=== PATIENT | female | born 1940 | race Caucasian/White ===

== ENCOUNTER 2020-06-07 16:44 | Inpatient (IN) | payer OTHER, BC ==
[2020-06-07 19:30] LABS: BASO % 0.3 % (0-2.0); HEMOGLOBIN 13.7 GM/dL (10.7-15.3); LYMPH % 15.4 % (8-40); MCH 27.9 pg (25.7-33.7); MCHC 32.6 g/dl (32.0-36.0); MEAN CELL VOLUME 85.5 fl (80-96); MEAN PLT VOLUME 8.7 fl (7.5-11.1); MONO % 11.6 % (3.8-10.2); NEUT % 72.7 % (42.8-82.8); PLATELET COUNT 291 K/MM3 (134-434); RBC 4.91 M/mm3 (3.60-5.2); RDW 14.4 % (11.6-15.6); WHITE BLOOD COUNT 13.6 K/mm3 (4.0-10.0)
[2020-06-07 19:38] LABS: INR 1.18 (0.83-1.09); PROTHROMBIN TIME (PATIENT) 14.4 SEC (9.7-13.0)
[2020-06-07 19:40] LABS: ACTIVATED PTT 30.5 SECONDS (25.2-36.5)
[2020-06-07 19:50] LABS: CHLORIDE 96 mmol/L (98-107); POTASSIUM 4.4 mmol/L (3.5-5.1); SODIUM 134 mmol/L (136-145)
[2020-06-07 19:53] LABS: CALCIUM 8.9 mg/dL (8.5-10.1)
[2020-06-07 19:54] LABS: ANION GAP 8 MMOL/L (8-16); CO2 31 mmol/L (21-32); GLUCOSE,RANDOM 117 mg/dL (74-106)
[2020-06-07 19:56] LABS: BILIRUBIN,DIRECT 0.5 mg/dL (0.0-0.2); CREATININE 1.6 mg/dL (0.55-1.3); SGOT/AST 30 U/L (15-37); SGPT/ALT 20 U/L (13-61)
[2020-06-07 19:58] LABS: BILIRUBIN,TOTAL 1.3 mg/dL (0.2-1); TOT PROT 7.3 g/dl (6.4-8.2)
[2020-06-07 19:59] LABS: ALK PHOS 123 U/L (45-117)
[2020-06-07 21:36] LABS: LDH 396 U/L (84-246)
[2020-06-07] MEDS ORDERED: DEXAMETHASONE SOD PHOSPHATE 4 MG/1 ML VIAL IVPUSH ONE (21:41)
[2020-06-07] MEDS ORDERED: DEXAMETHASONE SOD PHOSPHATE 10 MG/1 ML VIAL ONE (22:53)
[2020-06-08] MEDS ORDERED: ALBUTEROL SO4 HFA INHALER IH PRN (00:21)
[2020-06-08] MEDS ORDERED: AZITHROMYCIN IVPB 500 MG/250 ML BAG IVPB ONE ×2 (00:21→01:31)
[2020-06-08 08:39] LABS: BASO % 0.3 % (0-2.0); HEMATOCRIT 37.9 % (32.4-45.2); HEMOGLOBIN 12.4 GM/dL (10.7-15.3); LYMPH % 12.2 % (8-40); MCH 28.2 pg (25.7-33.7); MCHC 32.7 g/dl (32.0-36.0); MEAN CELL VOLUME 86.3 fl (80-96); MEAN PLT VOLUME 8.8 fl (7.5-11.1); MONO % 3.9 % (3.8-10.2); NEUT % 83.6 % (42.8-82.8); PLATELET COUNT 272 K/MM3 (134-434); RBC 4.39 M/mm3 (3.60-5.2); RDW 14.4 % (11.6-15.6); WHITE BLOOD COUNT 9.5 K/mm3 (4.0-10.0)
[2020-06-08 09:09] LABS: POTASSIUM 4.6 mmol/L (3.5-5.1)
[2020-06-08 09:14] LABS: ALBUMIN 2.6 g/dl (3.4-5.0); BLOOD UREA NITROGEN 30.8 mg/dL (7-18)
[2020-06-08 09:17] LABS: CREATININE 1.5 mg/dL (0.55-1.3)
[2020-06-08 09:18] LABS: BILIRUBIN,TOTAL 0.9 mg/dL (0.2-1); TOT PROT 6.6 g/dl (6.4-8.2)
[2020-06-08] MEDS: CHOLECALCIFEROL (VIT D3) 1,000 UNIT (25 MCG) TABLET PO SCH (09:47)
[2020-06-08] MEDS: ZINC SULFATE 220 MG CAPSULE (FP) PO SCH ×2 (09:47→21:39)
[2020-06-08] MEDS: DEXAMETHASONE SOD PHOSPHATE 4 MG/1 ML VIAL IVPUSH SCH (09:47)
[2020-06-08] MEDS: ASCORBIC ACID 500 MG TABLET (FP) PO SCH ×2 (09:47→21:39)
[2020-06-08] MEDS: ENOXAPARIN NA (PORCINE) 40 MG/0.4 ML DISP.SYRIN SQ SCH (10:17)
[2020-06-08 19:10] LABS: URINE APPEARANCE Clear; URINE BILIRUBIN 1+ (NEGATIVE); URINE COLOR Yellow; URINE GLUCOSE (UA) Negative (NEGATIVE); URINE KETONE Negative (NEGATIVE); URINE LEUK ESTERASE Trace (NEGATIVE); URINE NITRITE Negative (NEGATIVE); URINE PROTEIN Negative (NEGATIVE)
[2020-06-08] MEDS: BUDESONIDE/FORMETEROL FUMARATE 160/4.5 mcg INHALER IH SCH (21:39)
[2020-06-09 08:13] LABS: POTASSIUM 4.7 mmol/L (3.5-5.1)
[2020-06-09 08:20] LABS: ALBUMIN 2.6 g/dl (3.4-5.0); BLOOD UREA NITROGEN 35.5 mg/dL (7-18); CALCIUM 8.9 mg/dL (8.5-10.1); HEMATOCRIT 37.8 % (32.4-45.2); HEMOGLOBIN 12.4 GM/dL (10.7-15.3); MAGNESIUM 2.2 mg/dL (1.8-2.4); MCH 27.9 pg (25.7-33.7); MCHC 32.9 g/dl (32.0-36.0); MEAN CELL VOLUME 84.7 fl (80-96); MEAN PLT VOLUME 9.1 fl (7.5-11.1); PLATELET COUNT 366 K/MM3 (134-434); RBC 4.46 M/mm3 (3.60-5.2); RDW 14.4 % (11.6-15.6)
[2020-06-09 08:23] LABS: CREATININE 1.2 mg/dL (0.55-1.3); PHOSPHOROUS 4.3 mg/dL (2.5-4.9)
[2020-06-09 08:24] LABS: BILIRUBIN,TOTAL 0.6 mg/dL (0.2-1); TOT PROT 6.4 g/dl (6.4-8.2)
[2020-06-09 08:27] LABS: WHITE BLOOD COUNT 21.9 K/mm3 (4.0-10.0)
[2020-06-09] MEDS: ENOXAPARIN NA (PORCINE) 40 MG/0.4 ML DISP.SYRIN SQ SCH (10:14)
[2020-06-09] MEDS: ASCORBIC ACID 500 MG TABLET (FP) PO SCH ×2 (10:14→22:06)
[2020-06-09] MEDS: BUDESONIDE/FORMETEROL FUMARATE 160/4.5 mcg INHALER IH SCH ×2 (10:14→22:06)
[2020-06-09] MEDS: CHOLECALCIFEROL (VIT D3) 1,000 UNIT (25 MCG) TABLET PO SCH (10:14)
[2020-06-09] MEDS: ZINC SULFATE 220 MG CAPSULE (FP) PO SCH ×2 (10:14→22:06)
[2020-06-09] MEDS: DEXAMETHASONE SOD PHOSPHATE 4 MG/1 ML VIAL IVPUSH SCH (10:15)
[2020-06-09 11:15] LABS: ANISOCYTOSIS 2+; MACROCYTOSIS 0; PLATELET ESTIMATE NORMAL
[2020-06-09] MEDS ORDERED: REMDESIVIR 200 MG in SODIUM CHLORIDE 210 ML IVPB ONE (15:00)
[2020-06-10 08:37] LABS: BASO % 0.2 % (0-2.0); HEMATOCRIT 36.6 % (32.4-45.2); LYMPH % 13.9 % (8-40); MCH 27.8 pg (25.7-33.7); MCHC 32.9 g/dl (32.0-36.0); MEAN CELL VOLUME 84.6 fl (80-96); MEAN PLT VOLUME 8.7 fl (7.5-11.1); MONO % 9.7 % (3.8-10.2); NEUT % 76.2 % (42.8-82.8); PLATELET COUNT 356 K/MM3 (134-434); RBC 4.33 M/mm3 (3.60-5.2); RDW 14.4 % (11.6-15.6); WHITE BLOOD COUNT 12.8 K/mm3 (4.0-10.0)
[2020-06-10 08:52] LABS: POTASSIUM 4.2 mmol/L (3.5-5.1)
[2020-06-10 09:14] LABS: CALCIUM 8.9 mg/dL (8.5-10.1)
[2020-06-10 09:16] LABS: ALBUMIN 2.5 g/dl (3.4-5.0); BLOOD UREA NITROGEN 27.9 mg/dL (7-18)
[2020-06-10 09:22] LABS: BILIRUBIN,TOTAL 0.6 mg/dL (0.2-1)
[2020-06-10] MEDS: CHOLECALCIFEROL (VIT D3) 1,000 UNIT (25 MCG) TABLET PO SCH (09:29)
[2020-06-10] MEDS: DEXAMETHASONE SOD PHOSPHATE 4 MG/1 ML VIAL IVPUSH SCH (09:29)
[2020-06-10] MEDS: ASCORBIC ACID 500 MG TABLET (FP) PO SCH ×2 (09:29→21:29)
[2020-06-10] MEDS: ENOXAPARIN NA (PORCINE) 40 MG/0.4 ML DISP.SYRIN SQ SCH (09:29)
[2020-06-10] MEDS: ZINC SULFATE 220 MG CAPSULE (FP) PO SCH ×2 (09:29→21:29)
[2020-06-10] MEDS: BUDESONIDE/FORMETEROL FUMARATE 160/4.5 mcg INHALER IH SCH ×2 (09:53→21:29)
[2020-06-10 12:42] LABS: ANISOCYTOSIS 1+; MACROCYTOSIS 0; PLATELET ESTIMATE NORMAL; TARGET CELLS 1+; TEAR DROP CELLS 1+
[2020-06-10] MEDS: REMDESIVIR 100 MG in SODIUM CHLORIDE 230 ML IVPB SCH (14:48)
[2020-06-11] MEDS: ENOXAPARIN NA (PORCINE) 40 MG/0.4 ML DISP.SYRIN SQ SCH (09:44)
[2020-06-11] MEDS: ASCORBIC ACID 500 MG TABLET (FP) PO SCH ×2 (09:45→21:45)
[2020-06-11] MEDS: amLODIPine BESYLATE 5 MG TABLET (FP) PO SCH (09:45)
[2020-06-11] MEDS: CHOLECALCIFEROL (VIT D3) 1,000 UNIT (25 MCG) TABLET PO SCH (09:45)
[2020-06-11] MEDS: ZINC SULFATE 220 MG CAPSULE (FP) PO SCH ×2 (09:45→21:45)
[2020-06-11] MEDS: FUROSEMIDE 40 MG TABLET (FP) PO SCH (09:45)
[2020-06-11] MEDS: GABAPENTIN 300 MG CAPSULE PO SCH (09:46)
[2020-06-11] MEDS: NICOTINE 21 MG/24 HOURS TOPICAL PATCH TD SCH (09:46)
[2020-06-11] MEDS: BUDESONIDE/FORMETEROL FUMARATE 160/4.5 mcg INHALER IH SCH ×2 (09:49→21:45)
[2020-06-11] MEDS: DEXAMETHASONE SOD PHOSPHATE 4 MG/1 ML VIAL IVPUSH SCH (10:38)
[2020-06-11] MEDS: REMDESIVIR 100 MG in SODIUM CHLORIDE 230 ML IVPB SCH (15:02)
[2020-06-12 09:01] LABS: BASO % 0.2 % (0-2.0); HEMATOCRIT 36.8 % (32.4-45.2); HEMOGLOBIN 11.9 GM/dL (10.7-15.3); LYMPH % 14.6 % (8-40); MCH 27.6 pg (25.7-33.7); MCHC 32.3 g/dl (32.0-36.0); MEAN CELL VOLUME 85.5 fl (80-96); MEAN PLT VOLUME 8.6 fl (7.5-11.1); MONO % 8.4 % (3.8-10.2); NEUT % 76.8 % (42.8-82.8); PLATELET COUNT 326 K/MM3 (134-434); RBC 4.31 M/mm3 (3.60-5.2); RDW 14.7 % (11.6-15.6); WHITE BLOOD COUNT 11.1 K/mm3 (4.0-10.0)
[2020-06-12 09:22] LABS: POTASSIUM 4.7 mmol/L (3.5-5.1)
[2020-06-12 09:24] LABS: ALBUMIN 2.4 g/dl (3.4-5.0); BLOOD UREA NITROGEN 24.9 mg/dL (7-18); CALCIUM 8.6 mg/dL (8.5-10.1)
[2020-06-12 09:28] LABS: CREATININE 0.9 mg/dL (0.55-1.3)
[2020-06-12 09:30] LABS: BILIRUBIN,TOTAL 0.4 mg/dL (0.2-1); TOT PROT 5.5 g/dl (6.4-8.2)
[2020-06-12 10:14] LABS: ANISOCYTOSIS 1+; MACROCYTOSIS 0; PLATELET ESTIMATE NORMAL
[2020-06-12] MEDS: amLODIPine BESYLATE 5 MG TABLET (FP) PO SCH (10:18)
[2020-06-12] MEDS: ZINC SULFATE 220 MG CAPSULE (FP) PO SCH ×2 (10:18→21:22)
[2020-06-12] MEDS: FUROSEMIDE 40 MG TABLET (FP) PO SCH (10:18)
[2020-06-12] MEDS: GABAPENTIN 300 MG CAPSULE PO SCH (10:18)
[2020-06-12] MEDS: ASCORBIC ACID 500 MG TABLET (FP) PO SCH ×2 (10:18→21:22)
[2020-06-12] MEDS: ENOXAPARIN NA (PORCINE) 40 MG/0.4 ML DISP.SYRIN SQ SCH (10:19)
[2020-06-12] MEDS: NICOTINE 21 MG/24 HOURS TOPICAL PATCH TD SCH (10:19)
[2020-06-12] MEDS: CHOLECALCIFEROL (VIT D3) 1,000 UNIT (25 MCG) TABLET PO SCH (10:19)
[2020-06-12] MEDS: DEXAMETHASONE SOD PHOSPHATE 4 MG/1 ML VIAL IVPUSH SCH (10:19)
[2020-06-12] MEDS: BUDESONIDE/FORMETEROL FUMARATE 160/4.5 mcg INHALER IH SCH ×2 (10:19→21:22)
[2020-06-12] MEDS: REMDESIVIR 100 MG in SODIUM CHLORIDE 230 ML IVPB SCH (14:54)
[2020-06-13] MEDS: amLODIPine BESYLATE 5 MG TABLET (FP) PO SCH (09:48)
[2020-06-13] MEDS: ENOXAPARIN NA (PORCINE) 40 MG/0.4 ML DISP.SYRIN SQ SCH (09:48)
[2020-06-13] MEDS: ZINC SULFATE 220 MG CAPSULE (FP) PO SCH ×2 (09:48→21:39)
[2020-06-13] MEDS: FUROSEMIDE 40 MG TABLET (FP) PO SCH (09:48)
[2020-06-13] MEDS: GABAPENTIN 300 MG CAPSULE PO SCH (09:48)
[2020-06-13] MEDS: DEXAMETHASONE SOD PHOSPHATE 4 MG/1 ML VIAL IVPUSH SCH (09:48)
[2020-06-13] MEDS: CHOLECALCIFEROL (VIT D3) 1,000 UNIT (25 MCG) TABLET PO SCH (09:48)
[2020-06-13] MEDS: ASCORBIC ACID 500 MG TABLET (FP) PO SCH ×2 (09:48→21:40)
[2020-06-13] MEDS: NICOTINE 21 MG/24 HOURS TOPICAL PATCH TD SCH (09:49)
[2020-06-13] MEDS: BUDESONIDE/FORMETEROL FUMARATE 160/4.5 mcg INHALER IH SCH ×2 (09:53→21:41)
[2020-06-13] MEDS: REMDESIVIR 100 MG in SODIUM CHLORIDE 230 ML IVPB SCH (14:41)
[2020-06-14] MEDS: ASCORBIC ACID 500 MG TABLET (FP) PO SCH ×2 (09:41→21:16)
[2020-06-14] MEDS: GABAPENTIN 300 MG CAPSULE PO SCH (09:41)
[2020-06-14] MEDS: ENOXAPARIN NA (PORCINE) 40 MG/0.4 ML DISP.SYRIN SQ SCH (09:41)
[2020-06-14] MEDS: FUROSEMIDE 40 MG TABLET (FP) PO SCH (09:41)
[2020-06-14] MEDS: DEXAMETHASONE SOD PHOSPHATE 4 MG/1 ML VIAL IVPUSH SCH (09:42)
[2020-06-14] MEDS: ZINC SULFATE 220 MG CAPSULE (FP) PO SCH ×2 (09:42→21:16)
[2020-06-14] MEDS: CHOLECALCIFEROL (VIT D3) 1,000 UNIT (25 MCG) TABLET PO SCH (09:42)
[2020-06-14] MEDS: amLODIPine BESYLATE 5 MG TABLET (FP) PO SCH (09:42)
[2020-06-14] MEDS: NICOTINE 21 MG/24 HOURS TOPICAL PATCH TD SCH (09:42)
[2020-06-14] MEDS: BUDESONIDE/FORMETEROL FUMARATE 160/4.5 mcg INHALER IH SCH ×2 (09:56→21:17)
[2020-06-15 07:52] LABS: BASO % 0.5 % (0-2.0); HEMATOCRIT 39.8 % (32.4-45.2); HEMOGLOBIN 12.9 GM/dL (10.7-15.3); LYMPH % 13.3 % (8-40); MCH 27.6 pg (25.7-33.7); MCHC 32.5 g/dl (32.0-36.0); MEAN CELL VOLUME 85.1 fl (80-96); MEAN PLT VOLUME 8.5 fl (7.5-11.1); MONO % 5.4 % (3.8-10.2); NEUT % 80.8 % (42.8-82.8); PLATELET COUNT 284 K/MM3 (134-434); RBC 4.68 M/mm3 (3.60-5.2); RDW 14.6 % (11.6-15.6); WHITE BLOOD COUNT 16.1 K/mm3 (4.0-10.0)
[2020-06-15 08:31] LABS: POTASSIUM 4.8 mmol/L (3.5-5.1)
[2020-06-15 08:33] LABS: ALBUMIN 2.6 g/dl (3.4-5.0); BLOOD UREA NITROGEN 32.4 mg/dL (7-18)
[2020-06-15 08:36] LABS: CREATININE 1.1 mg/dL (0.55-1.3)
[2020-06-15 08:38] LABS: BILIRUBIN,TOTAL 0.5 mg/dL (0.2-1); TOT PROT 5.6 g/dl (6.4-8.2)
[2020-06-15] MEDS: CHOLECALCIFEROL (VIT D3) 1,000 UNIT (25 MCG) TABLET PO SCH (09:16)
[2020-06-15] MEDS: ZINC SULFATE 220 MG CAPSULE (FP) PO SCH ×2 (09:20→22:18)
[2020-06-15] MEDS: FUROSEMIDE 40 MG TABLET (FP) PO SCH (09:20)
[2020-06-15] MEDS: DEXAMETHASONE SOD PHOSPHATE 4 MG/1 ML VIAL IVPUSH SCH (09:20)
[2020-06-15] MEDS: amLODIPine BESYLATE 5 MG TABLET (FP) PO SCH (09:20)
[2020-06-15] MEDS: NICOTINE 21 MG/24 HOURS TOPICAL PATCH TD SCH (09:22)
[2020-06-15] MEDS: BUDESONIDE/FORMETEROL FUMARATE 160/4.5 mcg INHALER IH SCH ×2 (09:38→22:18)
[2020-06-15] MEDS: ASCORBIC ACID 500 MG TABLET (FP) PO SCH ×2 (09:39→22:18)
[2020-06-15 10:02] LABS: ANISOCYTOSIS 0; MACROCYTOSIS 0; PLATELET ESTIMATE NORMAL
[2020-06-15] MEDS: GABAPENTIN 300 MG CAPSULE PO SCH (13:23)
[2020-06-15] MEDS: ENOXAPARIN NA (PORCINE) 40 MG/0.4 ML DISP.SYRIN SQ SCH (13:24)
[2020-06-16] MEDS ORDERED: PT OWN MED DRAWER 7, Y5N ONE (10:18)
[2020-06-16] MEDS: GABAPENTIN 300 MG CAPSULE PO SCH (10:20)
[2020-06-16] MEDS: amLODIPine BESYLATE 5 MG TABLET (FP) PO SCH (10:20)
[2020-06-16] MEDS: FUROSEMIDE 40 MG TABLET (FP) PO SCH (10:20)
[2020-06-16] MEDS: BUDESONIDE/FORMETEROL FUMARATE 160/4.5 mcg INHALER IH SCH ×2 (10:20→22:15)
[2020-06-16] MEDS: ENOXAPARIN NA (PORCINE) 40 MG/0.4 ML DISP.SYRIN SQ SCH (10:20)
[2020-06-16] MEDS: ZINC SULFATE 220 MG CAPSULE (FP) PO SCH ×2 (10:20→22:15)
[2020-06-16] MEDS: DEXAMETHASONE SOD PHOSPHATE 4 MG/1 ML VIAL IVPUSH SCH (10:20)
[2020-06-16] MEDS: NICOTINE 21 MG/24 HOURS TOPICAL PATCH TD SCH (10:20)
[2020-06-16] MEDS: ASCORBIC ACID 500 MG TABLET (FP) PO SCH ×2 (10:21→22:15)
[2020-06-16] MEDS: CHOLECALCIFEROL (VIT D3) 1,000 UNIT (25 MCG) TABLET PO SCH (10:22)
[2020-06-16 16:45] VITALS: BMI 27.9
[2020-06-17] MEDS: ZINC SULFATE 220 MG CAPSULE (FP) PO SCH ×2 (09:05→21:53)
[2020-06-17] MEDS: FUROSEMIDE 40 MG TABLET (FP) PO SCH (09:05)
[2020-06-17] MEDS: DEXAMETHASONE SOD PHOSPHATE 4 MG/1 ML VIAL IVPUSH SCH (09:05)
[2020-06-17] MEDS: NICOTINE 21 MG/24 HOURS TOPICAL PATCH TD SCH (09:05)
[2020-06-17] MEDS: ENOXAPARIN NA (PORCINE) 40 MG/0.4 ML DISP.SYRIN SQ SCH (09:05)
[2020-06-17] MEDS: CHOLECALCIFEROL (VIT D3) 1,000 UNIT (25 MCG) TABLET PO SCH (09:05)
[2020-06-17] MEDS: ASCORBIC ACID 500 MG TABLET (FP) PO SCH ×2 (09:05→21:53)
[2020-06-17] MEDS: amLODIPine BESYLATE 5 MG TABLET (FP) PO SCH (09:05)
[2020-06-17] MEDS: GABAPENTIN 300 MG CAPSULE PO SCH (09:05)
[2020-06-17] MEDS: BUDESONIDE/FORMETEROL FUMARATE 160/4.5 mcg INHALER IH SCH ×2 (09:06→21:53)
[2020-06-17 09:36] LABS: BASO % 0.2 % (0-2.0); HEMATOCRIT 38.7 % (32.4-45.2); HEMOGLOBIN 12.6 GM/dL (10.7-15.3); LYMPH % 11.1 % (8-40); MCH 27.9 pg (25.7-33.7); MCHC 32.7 g/dl (32.0-36.0); MEAN CELL VOLUME 85.4 fl (80-96); MEAN PLT VOLUME 8.9 fl (7.5-11.1); MONO % 6.6 % (3.8-10.2); NEUT % 82.1 % (42.8-82.8); PLATELET COUNT 183 K/MM3 (134-434); RBC 4.53 M/mm3 (3.60-5.2); RDW 14.9 % (11.6-15.6); WHITE BLOOD COUNT 15.5 K/mm3 (4.0-10.0)
[2020-06-17 10:01] LABS: POTASSIUM 4.8 mmol/L (3.5-5.1)
[2020-06-17 10:11] LABS: ALBUMIN 2.6 g/dl (3.4-5.0); BLOOD UREA NITROGEN 27.7 mg/dL (7-18); CALCIUM 8.2 mg/dL (8.5-10.1)
[2020-06-17 10:14] LABS: BILIRUBIN,TOTAL 0.6 mg/dL (0.2-1); TOT PROT 5.6 g/dl (6.4-8.2)
[2020-06-17 10:15] LABS: CREATININE 0.9 mg/dL (0.55-1.3)
[2020-06-18] MEDS: DEXAMETHASONE SOD PHOSPHATE 4 MG/1 ML VIAL IVPUSH SCH (09:23)
[2020-06-18] MEDS: ASCORBIC ACID 500 MG TABLET (FP) PO SCH ×2 (09:24→21:36)
[2020-06-18] MEDS: BUDESONIDE/FORMETEROL FUMARATE 160/4.5 mcg INHALER IH SCH ×2 (09:24→21:36)
[2020-06-18] MEDS: FUROSEMIDE 40 MG TABLET (FP) PO SCH (09:24)
[2020-06-18] MEDS: ENOXAPARIN NA (PORCINE) 40 MG/0.4 ML DISP.SYRIN SQ SCH (09:24)
[2020-06-18] MEDS: amLODIPine BESYLATE 5 MG TABLET (FP) PO SCH (09:24)
[2020-06-18] MEDS: GABAPENTIN 300 MG CAPSULE PO SCH (09:24)
[2020-06-18] MEDS: CHOLECALCIFEROL (VIT D3) 1,000 UNIT (25 MCG) TABLET PO SCH (09:24)
[2020-06-18] MEDS: ZINC SULFATE 220 MG CAPSULE (FP) PO SCH ×2 (09:24→21:36)
[2020-06-18] MEDS: NICOTINE 21 MG/24 HOURS TOPICAL PATCH TD SCH (09:24)
[2020-06-19] MEDS: ASCORBIC ACID 500 MG TABLET (FP) PO SCH ×2 (09:31→21:46)
[2020-06-19] MEDS: FUROSEMIDE 40 MG TABLET (FP) PO SCH (09:31)
[2020-06-19] MEDS: NICOTINE 21 MG/24 HOURS TOPICAL PATCH TD SCH (09:32)
[2020-06-19] MEDS: amLODIPine BESYLATE 5 MG TABLET (FP) PO SCH (09:32)
[2020-06-19] MEDS: ENOXAPARIN NA (PORCINE) 40 MG/0.4 ML DISP.SYRIN SQ SCH (09:32)
[2020-06-19] MEDS: GABAPENTIN 300 MG CAPSULE PO SCH (09:32)
[2020-06-19] MEDS: CHOLECALCIFEROL (VIT D3) 1,000 UNIT (25 MCG) TABLET PO SCH (09:32)
[2020-06-19] MEDS: ZINC SULFATE 220 MG CAPSULE (FP) PO SCH ×2 (09:32→21:47)
[2020-06-19] MEDS: BUDESONIDE/FORMETEROL FUMARATE 160/4.5 mcg INHALER IH SCH ×2 (09:34→21:51)
[2020-06-19 09:42] LABS: BASO % 0.1 % (0-2.0); EOS % 0.3 % (0-4.5); HEMATOCRIT 36.6 % (32.4-45.2); HEMOGLOBIN 11.9 GM/dL (10.7-15.3); LYMPH % 13.8 % (8-40); MCH 27.8 pg (25.7-33.7); MCHC 32.6 g/dl (32.0-36.0); MEAN CELL VOLUME 85.3 fl (80-96); MEAN PLT VOLUME 9.2 fl (7.5-11.1); MONO % 9.6 % (3.8-10.2); NEUT % 76.2 % (42.8-82.8); PLATELET COUNT 122 K/MM3 (134-434); RBC 4.29 M/mm3 (3.60-5.2); RDW 14.8 % (11.6-15.6); WHITE BLOOD COUNT 11.3 K/mm3 (4.0-10.0)
[2020-06-19 09:58] LABS: POTASSIUM 4.2 mmol/L (3.5-5.1)
[2020-06-19 10:02] LABS: ALBUMIN 2.4 g/dl (3.4-5.0); BLOOD UREA NITROGEN 21.4 mg/dL (7-18); CALCIUM 8.1 mg/dL (8.5-10.1)
[2020-06-19 10:07] LABS: BILIRUBIN,TOTAL 0.6 mg/dL (0.2-1)
[2020-06-19 10:16] LABS: TOT PROT 5.3 g/dl (6.4-8.2)
[2020-06-19] MEDS ORDERED: MELATONIN 5 MG TABLETS PO ONE (21:30)
[2020-06-19] MEDS: DEXAMETHASONE 4 MG TABLET (FP) PO SCH (23:15)
[2020-06-20 06:25] VITALS: TEMP 98
[2020-06-20] MEDS ORDERED: PT OWN MED DRAWER 7, Y5N ONE ×2 (06:56→11:55)
[2020-06-20 09:40] VITALS: BP 141/54
[2020-06-20] MEDS: amLODIPine BESYLATE 5 MG TABLET (FP) PO SCH (11:32)
[2020-06-20] MEDS: ENOXAPARIN NA (PORCINE) 40 MG/0.4 ML DISP.SYRIN SQ SCH (11:32)
[2020-06-20] MEDS: FUROSEMIDE 40 MG TABLET (FP) PO SCH (11:32)
[2020-06-20] MEDS: ZINC SULFATE 220 MG CAPSULE (FP) PO SCH (11:33)
[2020-06-20] MEDS: GABAPENTIN 300 MG CAPSULE PO SCH (11:33)
[2020-06-20] MEDS: CHOLECALCIFEROL (VIT D3) 1,000 UNIT (25 MCG) TABLET PO SCH (11:33)
[2020-06-20] MEDS: ASCORBIC ACID 500 MG TABLET (FP) PO SCH (11:33)
[2020-06-20] MEDS: NICOTINE 21 MG/24 HOURS TOPICAL PATCH TD SCH (11:34)
[2020-06-20] MEDS: BUDESONIDE/FORMETEROL FUMARATE 160/4.5 mcg INHALER IH SCH (11:34)
[2020-06-20] MEDS: DEXAMETHASONE 4 MG TABLET (FP) PO SCH (12:01)
[2020-06-20 12:58] VITALS: PULSE 102
== END 2020-06-20 19:01 | disposition home health service (06) | DRG 177 ==
LOC: JER 16:44 → JERBED 19:19 → J6WEST-2 06-08 03:55 → J5WEST-2 06-14 22:47 → J6S 06-15 16:57
PROVIDERS: ADMIT Internal Medicine; ATTEND Internal Medicine
PROC: 8E0ZXY6 Isolation (ICD-10-PCS; 2020-06-07)
PROC: XW033E5 Introduction of Remdesivir Anti-infective into Peripheral Vein, Percutaneous Approach, New Technology Group 5 (ICD-10-PCS; principal; 2020-06-09)
DX: U07.1 COVID-19 (principal); J12.82 Pneumonia due to coronavirus disease 2019; M35.89 Other specified systemic involvement of connective tissue; I25.10 Atherosclerotic heart disease of native coronary artery without angina pectoris; E78.5 Hyperlipidemia, unspecified; J44.9 Chronic obstructive pulmonary disease, unspecified; I25.2 Old myocardial infarction; E11.9 Type 2 diabetes mellitus without complications; I11.0 Hypertensive heart disease with heart failure; R09.02 Hypoxemia; G62.9 Polyneuropathy, unspecified; I50.9 Heart failure, unspecified; Z86.73 Personal history of transient ischemic attack (TIA), and cerebral infarction without residual deficits; Z95.0 Presence of cardiac pacemaker
CPT/HCPCS: 36415; 71045-TC-FY; 80053; 81003; 82248; 82550; 82553; 82728; 82962; 83605; 83615; 83735; 84100; 84484; 85025; 85379; 85610; 85730; 86140; 86769; 86850; 86900; 86901; 87086; 93005; 93010; 94761; 97116-GP; 97162-GP; 99285-25; C9399; C9803; U0003

== ENCOUNTER 2020-07-04 18:26 | Inpatient (IN) | payer OTHER, BC ==
[2020-07-04 21:33] LABS: BASO % 0.1 % (0-2.0); HEMATOCRIT 30.3 % (32.4-45.2); HEMOGLOBIN 9.7 GM/dL (10.7-15.3); LYMPH % 6.5 % (8-40); MCH 28.1 pg (25.7-33.7); MEAN PLT VOLUME 8.7 fl (7.5-11.1); MONO % 5.2 % (3.8-10.2); NEUT % 88.2 % (42.8-82.8); PLATELET COUNT 265 K/MM3 (134-434); RBC 3.44 M/mm3 (3.60-5.2); RDW 17.2 % (11.6-15.6); WHITE BLOOD COUNT 20.6 K/mm3 (4.0-10.0)
[2020-07-04 21:44] LABS: VENOUS BASE EXCESS 1.7 mmol/L (-2-2); VENOUS O2 SATURATION 34.9 % (70-80); VENOUS PCO2 53.1 mmHg (38-52); VENOUS PH 7.342 (7.310-7.410)
[2020-07-04 21:56] LABS: CHLORIDE 93 mmol/L (98-107); POTASSIUM 3.9 mmol/L (3.5-5.1); SODIUM 134 mmol/L (136-145)
[2020-07-04 21:58] LABS: CALCIUM 9.3 mg/dL (8.5-10.1)
[2020-07-04 21:59] LABS: ALBUMIN 3.1 g/dl (3.4-5.0); BLOOD UREA NITROGEN 56.4 mg/dL (7-18); GLUCOSE,RANDOM 128 mg/dL (74-106); INR 1.04 (0.83-1.09); PROTHROMBIN TIME (PATIENT) 12.8 SEC (9.7-13.0)
[2020-07-04 22:00] LABS: ANION GAP 12 MMOL/L (8-16); CO2 29 mmol/L (21-32)
[2020-07-04 22:01] LABS: BILIRUBIN,DIRECT 0.2 mg/dL (0.0-0.2)
[2020-07-04 22:02] LABS: ACTIVATED PTT 23.5 SECONDS (25.2-36.5); CREATININE 1.5 mg/dL (0.55-1.3); SGOT/AST 13 U/L (15-37); SGPT/ALT 25 U/L (13-61)
[2020-07-04 22:03] LABS: BILIRUBIN,TOTAL 0.4 mg/dL (0.2-1); TOT PROT 6.3 g/dl (6.4-8.2)
[2020-07-04 22:05] LABS: ALK PHOS 89 U/L (45-117)
[2020-07-04] MEDS ORDERED: SODIUM CHLORIDE 1,000 ML IV STA (22:06)
[2020-07-04 22:13] LABS: LDH 286 U/L (84-246)
[2020-07-04 22:40] LABS: ANISOCYTOSIS 2+; MACROCYTOSIS 0; PLATELET ESTIMATE NORMAL
[2020-07-04] MEDS ORDERED: AZTREONAM 2 GM in DEXTROSE 5%-WATER 100 ML IVPB ONE (23:17)
[2020-07-04] MEDS ORDERED: VANCOMYCIN 1,000 MG in DEXTROSE 5%-WATER - 250 ML IVPB ONE (23:17)
[2020-07-05] MEDS: DEXTROSE 5%-0.45% SALINE 1,000 ML IV SCH ×2 (02:19→15:16)
[2020-07-05] MEDS ORDERED: VANCOMYCIN 1 GRAM (PRE-DOCKED) 1,000 MG/250 ML BAG IVPB ONE (02:24)
[2020-07-05 03:16] LABS: POTASSIUM 3.9 mmol/L (3.5-5.1)
[2020-07-05 03:19] LABS: CALCIUM 8.6 mg/dL (8.5-10.1)
[2020-07-05 03:20] LABS: BLOOD UREA NITROGEN 52.4 mg/dL (7-18)
[2020-07-05 03:23] LABS: CREATININE 1.3 mg/dL (0.55-1.3)
[2020-07-05 08:48] LABS: URINE APPEARANCE CLEAR; URINE BILIRUBIN NEGATIVE (NEGATIVE); URINE COLOR YELLOW; URINE GLUCOSE (UA) NEGATIVE (NEGATIVE); URINE KETONE NEGATIVE (NEGATIVE)
[2020-07-05 08:49] LABS: URINE LEUK ESTERASE NEGATIVE (NEGATIVE); URINE NITRITE NEGATIVE (NEGATIVE); URINE PROTEIN NEGATIVE (NEGATIVE)
[2020-07-05 08:51] LABS: EPI CELLS 6.4 /uL (0-25.1); HYALINE CASTS 2.69 /uL (0-3.1); URINE BACTERIA 4.7 /uL (0-1359); URINE RBC 4.8 /uL (0-23.9); URINE WBC 2.1 /uL (0-25.8)
[2020-07-05] MEDS ORDERED: GABAPENTIN 300 MG CAPSULE PO SCH (10:00)
[2020-07-05] MEDS ORDERED: ASPIRIN COATED 81 MG TABLET.EC ONE (10:39)
[2020-07-05] MEDS ORDERED: FUROSEMIDE 40 MG TABLET (FP) ONE (10:39)
[2020-07-05] MEDS ORDERED: metoPROLOL SUCCINATE 25 MG TAB.SR.24H (FP) ONE (10:40)
[2020-07-05] MEDS ORDERED: PANTOPRAZOLE 40 MG TABLET ONE (10:40)
[2020-07-05] MEDS ORDERED: PT OWN MED DRAWER 7, Y5N ONE (10:41)
[2020-07-05] MEDS ORDERED: ENOXAPARIN NA (PORCINE) 40 MG/0.4 ML DISP.SYRIN SQ ONE (10:41)
[2020-07-05] MEDS ORDERED: GABAPENTIN 100 MG CAPSULE ONE (10:41)
[2020-07-05] MEDS ORDERED: amLODIPine BESYLATE 2.5 MG TABLET (FP) ONE (10:42)
[2020-07-05] MEDS: FUROSEMIDE 40 MG TABLET (FP) PO SCH (10:56)
[2020-07-05] MEDS: ASPIRIN COATED 81 MG TABLET.EC PO SCH (10:56)
[2020-07-05] MEDS: PANTOPRAZOLE 40 MG TABLET PO SCH (10:57)
[2020-07-05] MEDS: GABAPENTIN 300 MG CAPSULE PO SCH (10:57)
[2020-07-05] MEDS: BUDESONIDE/FORMETEROL FUMARATE 160/4.5 mcg INHALER IH SCH ×2 (10:57→23:34)
[2020-07-05] MEDS: amLODIPine BESYLATE 5 MG TABLET (FP) PO SCH (10:57)
[2020-07-05] MEDS: NICOTINE 21 MG/24 HOURS TOPICAL PATCH TD SCH (10:57)
[2020-07-05] MEDS: ENOXAPARIN NA (PORCINE) 40 MG/0.4 ML DISP.SYRIN SQ SCH (10:57)
[2020-07-05] MEDS: metoPROLOL SUCCINATE 25 MG TAB.SR.24H (FP) PO SCH (10:57)
[2020-07-05] MEDS: ATORVASTATIN CA 20 MG TABLET (FP) PO SCH (22:45)
[2020-07-06] MEDS: DEXTROSE 5%-0.45% SALINE 1,000 ML IV SCH (07:33)
[2020-07-06 09:48] LABS: BASO % 0.1 % (0-2.0); EOS % 0.5 % (0-4.5); HEMOGLOBIN 7.9 GM/dL (10.7-15.3); LYMPH % 17.8 % (8-40); MCH 29.2 pg (25.7-33.7); MEAN CELL VOLUME 88.3 fl (80-96); MEAN PLT VOLUME 8.7 fl (7.5-11.1); MONO % 5.3 % (3.8-10.2); NEUT % 76.3 % (42.8-82.8); PLATELET COUNT 197 K/MM3 (134-434); RBC 2.72 M/mm3 (3.60-5.2); RDW 17.2 % (11.6-15.6)
[2020-07-06 10:06] LABS: POTASSIUM 3.4 mmol/L (3.5-5.1)
[2020-07-06 10:08] LABS: ALBUMIN 2.4 g/dl (3.4-5.0); BLOOD UREA NITROGEN 31.6 mg/dL (7-18)
[2020-07-06 10:10] LABS: CALCIUM 7.9 mg/dL (8.5-10.1)
[2020-07-06 10:11] LABS: CREATININE 1.1 mg/dL (0.55-1.3)
[2020-07-06 10:13] LABS: BILIRUBIN,TOTAL 0.6 mg/dL (0.2-1); TOT PROT 4.9 g/dl (6.4-8.2)
[2020-07-06] MEDS: GABAPENTIN 300 MG CAPSULE PO SCH (11:09)
[2020-07-06] MEDS: amLODIPine BESYLATE 5 MG TABLET (FP) PO SCH ×2 (11:09→11:26)
[2020-07-06] MEDS: metoPROLOL SUCCINATE 25 MG TAB.SR.24H (FP) PO SCH ×2 (11:09→11:27)
[2020-07-06] MEDS: PANTOPRAZOLE 40 MG TABLET PO SCH (11:10)
[2020-07-06] MEDS: ASPIRIN COATED 81 MG TABLET.EC PO SCH (11:10)
[2020-07-06] MEDS: FUROSEMIDE 40 MG TABLET (FP) PO SCH (11:10)
[2020-07-06] MEDS: NICOTINE 21 MG/24 HOURS TOPICAL PATCH TD SCH (11:10)
[2020-07-06] MEDS: BUDESONIDE/FORMETEROL FUMARATE 160/4.5 mcg INHALER IH SCH ×2 (11:15→22:46)
[2020-07-06] MEDS: ENOXAPARIN NA (PORCINE) 40 MG/0.4 ML DISP.SYRIN SQ SCH (12:20)
[2020-07-06 21:42] LABS: BASO % 0.2 % (0-2.0); EOS % 0.5 % (0-4.5); HEMATOCRIT 24.4 % (32.4-45.2); HEMOGLOBIN 8.2 GM/dL (10.7-15.3); LYMPH % 22.2 % (8-40); MCH 29.2 pg (25.7-33.7); MCHC 33.5 g/dl (32.0-36.0); MEAN CELL VOLUME 87.2 fl (80-96); MEAN PLT VOLUME 8.1 fl (7.5-11.1); MONO % 5.8 % (3.8-10.2); NEUT % 71.3 % (42.8-82.8); PLATELET COUNT 209 K/MM3 (134-434); RDW 17.3 % (11.6-15.6)
[2020-07-06] MEDS: ATORVASTATIN CA 20 MG TABLET (FP) PO SCH (22:45)
[2020-07-07] MEDS: DEXTROSE 5%-0.45% SALINE 1,000 ML IV SCH ×2 (03:00→16:16)
[2020-07-07 09:16] LABS: BASO % 0.3 % (0-2.0); EOS % 1.1 % (0-4.5); HEMATOCRIT 26.8 % (32.4-45.2); HEMOGLOBIN 8.8 GM/dL (10.7-15.3); LYMPH % 20.9 % (8-40); MCH 29.4 pg (25.7-33.7); MCHC 32.7 g/dl (32.0-36.0); MEAN CELL VOLUME 89.9 fl (80-96); MEAN PLT VOLUME 8.3 fl (7.5-11.1); MONO % 5.9 % (3.8-10.2); NEUT % 71.8 % (42.8-82.8); PLATELET COUNT 219 K/MM3 (134-434); RBC 2.98 M/mm3 (3.60-5.2); RDW 17.5 % (11.6-15.6); WHITE BLOOD COUNT 9.7 K/mm3 (4.0-10.0)
[2020-07-07] MEDS: ENOXAPARIN NA (PORCINE) 40 MG/0.4 ML DISP.SYRIN SQ SCH (09:17)
[2020-07-07] MEDS: PANTOPRAZOLE 40 MG TABLET PO SCH (09:18)
[2020-07-07] MEDS: amLODIPine BESYLATE 5 MG TABLET (FP) PO SCH (09:18)
[2020-07-07] MEDS: metoPROLOL SUCCINATE 25 MG TAB.SR.24H (FP) PO SCH ×2 (09:19→09:29)
[2020-07-07] MEDS: GABAPENTIN 300 MG CAPSULE PO SCH (09:19)
[2020-07-07] MEDS: ASPIRIN COATED 81 MG TABLET.EC PO SCH (09:19)
[2020-07-07] MEDS: FUROSEMIDE 40 MG TABLET (FP) PO SCH (09:19)
[2020-07-07] MEDS: BUDESONIDE/FORMETEROL FUMARATE 160/4.5 mcg INHALER IH SCH ×2 (09:19→22:22)
[2020-07-07] MEDS: NICOTINE 21 MG/24 HOURS TOPICAL PATCH TD SCH (09:19)
[2020-07-07 09:40] LABS: POTASSIUM 4.1 mmol/L (3.5-5.1)
[2020-07-07 10:01] LABS: ALBUMIN 2.6 g/dl (3.4-5.0); BLOOD UREA NITROGEN 16.9 mg/dL (7-18); CALCIUM 8.1 mg/dL (8.5-10.1)
[2020-07-07 10:04] LABS: CREATININE 1.1 mg/dL (0.55-1.3)
[2020-07-07 10:05] LABS: BILIRUBIN,TOTAL 1.7 mg/dL (0.2-1); TOT PROT 5.3 g/dl (6.4-8.2)
[2020-07-07] MEDS: ATORVASTATIN CA 20 MG TABLET (FP) PO SCH (22:22)
[2020-07-07] MEDS: POLYETHYLENE GLYCOL 3350 119 GM BTL PO SCH (22:22)
[2020-07-07] MEDS ORDERED: MELATONIN 5 MG TABLETS PO ONE (22:45)
[2020-07-08] MEDS: DEXTROSE 5%-0.45% SALINE 1,000 ML IV SCH (02:47)
[2020-07-08 07:46] LABS: BASO % 0.6 % (0-2.0); EOS % 1.5 % (0-4.5); HEMATOCRIT 23.7 % (32.4-45.2); HEMOGLOBIN 7.9 GM/dL (10.7-15.3); LYMPH % 20.5 % (8-40); MCH 29.4 pg (25.7-33.7); MCHC 33.5 g/dl (32.0-36.0); MEAN CELL VOLUME 87.8 fl (80-96); MEAN PLT VOLUME 8.2 fl (7.5-11.1); MONO % 5.7 % (3.8-10.2); NEUT % 71.7 % (42.8-82.8); PLATELET COUNT 190 K/MM3 (134-434); RBC 2.69 M/mm3 (3.60-5.2); RDW 17.7 % (11.6-15.6); WHITE BLOOD COUNT 6.8 K/mm3 (4.0-10.0)
[2020-07-08 08:25] LABS: POTASSIUM 3.2 mmol/L (3.5-5.1)
[2020-07-08 08:27] LABS: ALBUMIN 2.2 g/dl (3.4-5.0); CALCIUM 7.7 mg/dL (8.5-10.1)
[2020-07-08 08:28] LABS: BLOOD UREA NITROGEN 12.4 mg/dL (7-18)
[2020-07-08 08:31] LABS: CREATININE 0.9 mg/dL (0.55-1.3)
[2020-07-08 08:32] LABS: BILIRUBIN,TOTAL 0.5 mg/dL (0.2-1); TOT PROT 4.4 g/dl (6.4-8.2)
[2020-07-08] MEDS ORDERED: PT OWN MED DRAWER 7, Y5N ONE ×2 (09:23→22:08)
[2020-07-08] MEDS: FUROSEMIDE 40 MG TABLET (FP) PO SCH (09:42)
[2020-07-08] MEDS: amLODIPine BESYLATE 5 MG TABLET (FP) PO SCH (09:42)
[2020-07-08] MEDS: metoPROLOL SUCCINATE 25 MG TAB.SR.24H (FP) PO SCH (09:43)
[2020-07-08] MEDS: POLYETHYLENE GLYCOL 3350 119 GM BTL PO SCH ×2 (09:44→21:59)
[2020-07-08] MEDS: PANTOPRAZOLE 40 MG TABLET PO SCH ×3 (09:45→22:00)
[2020-07-08] MEDS: BUDESONIDE/FORMETEROL FUMARATE 160/4.5 mcg INHALER IH SCH ×2 (09:45→21:57)
[2020-07-08] MEDS: ENOXAPARIN NA (PORCINE) 40 MG/0.4 ML DISP.SYRIN SQ SCH (09:45)
[2020-07-08] MEDS: ASPIRIN COATED 81 MG TABLET.EC PO SCH (09:45)
[2020-07-08] MEDS: NICOTINE 21 MG/24 HOURS TOPICAL PATCH TD SCH (09:45)
[2020-07-08] MEDS: GABAPENTIN 300 MG CAPSULE PO SCH (09:45)
[2020-07-08] MEDS ORDERED: IRON SUCROSE INJECTION 200 MG in SODIUM CHLORIDE 90 ML IVPB ONE (21:10)
[2020-07-08] MEDS ORDERED: CYANOCOBALAMIN (VITAMIN B-12) 1000 MCG/1 ML VIAL IM ONE (21:15)
[2020-07-08] MEDS: ATORVASTATIN CA 20 MG TABLET (FP) PO SCH (21:57)
[2020-07-08] MEDS: MELATONIN 5 MG TABLETS PO PRN (22:45)
[2020-07-09] MEDS: DEXTROSE 5%-0.45% SALINE 1,000 ML IV SCH ×2 (04:19→21:45)
[2020-07-09 10:28] LABS: BASO % 0.6 % (0-2.0); HEMATOCRIT 23.5 % (32.4-45.2); HEMOGLOBIN 7.6 GM/dL (10.7-15.3); LYMPH % 21.2 % (8-40); MCH 29.1 pg (25.7-33.7); MCHC 32.4 g/dl (32.0-36.0); MEAN CELL VOLUME 89.7 fl (80-96); MEAN PLT VOLUME 8.6 fl (7.5-11.1); MONO % 6.2 % (3.8-10.2); PLATELET COUNT 185 K/MM3 (134-434); RBC 2.62 M/mm3 (3.60-5.2); RDW 18.1 % (11.6-15.6); WHITE BLOOD COUNT 7.6 K/mm3 (4.0-10.0)
[2020-07-09] MEDS: ASPIRIN COATED 81 MG TABLET.EC PO SCH (10:38)
[2020-07-09] MEDS: FUROSEMIDE 40 MG TABLET (FP) PO SCH (10:38)
[2020-07-09] MEDS: amLODIPine BESYLATE 5 MG TABLET (FP) PO SCH (10:38)
[2020-07-09] MEDS: PANTOPRAZOLE 40 MG TABLET PO SCH ×2 (10:38→21:45)
[2020-07-09] MEDS: metoPROLOL SUCCINATE 25 MG TAB.SR.24H (FP) PO SCH (10:38)
[2020-07-09] MEDS: NICOTINE 21 MG/24 HOURS TOPICAL PATCH TD SCH (10:38)
[2020-07-09] MEDS: ENOXAPARIN NA (PORCINE) 40 MG/0.4 ML DISP.SYRIN SQ SCH (10:38)
[2020-07-09] MEDS: GABAPENTIN 300 MG CAPSULE PO SCH (10:38)
[2020-07-09] MEDS: BUDESONIDE/FORMETEROL FUMARATE 160/4.5 mcg INHALER IH SCH ×2 (10:43→21:45)
[2020-07-09] MEDS: POLYETHYLENE GLYCOL 3350 119 GM BTL PO SCH ×2 (10:49→21:45)
[2020-07-09 11:28] LABS: ALBUMIN 2.2 g/dl (3.4-5.0); BLOOD UREA NITROGEN 9.1 mg/dL (7-18)
[2020-07-09 11:31] LABS: CREATININE 0.9 mg/dL (0.55-1.3)
[2020-07-09 11:33] LABS: TOT PROT 4.5 g/dl (6.4-8.2)
[2020-07-09 11:34] LABS: BILIRUBIN,TOTAL 0.6 mg/dL (0.2-1)
[2020-07-09 11:35] LABS: POTASSIUM 3.6 mmol/L (3.5-5.1)
[2020-07-09] MEDS: ATORVASTATIN CA 20 MG TABLET (FP) PO SCH (21:45)
[2020-07-09] MEDS: MELATONIN 5 MG TABLETS PO PRN (22:42)
[2020-07-10 10:16] LABS: BASO % 0.8 % (0-2.0); EOS % 0.3 % (0-4.5); HEMATOCRIT 23.7 % (32.4-45.2); HEMOGLOBIN 7.9 GM/dL (10.7-15.3); LYMPH % 14.9 % (8-40); MCH 29.6 pg (25.7-33.7); MCHC 33.4 g/dl (32.0-36.0); MEAN CELL VOLUME 88.6 fl (80-96); MEAN PLT VOLUME 8.3 fl (7.5-11.1); MONO % 4.8 % (3.8-10.2); NEUT % 79.2 % (42.8-82.8); PLATELET COUNT 202 K/MM3 (134-434); RBC 2.68 M/mm3 (3.60-5.2); RDW 18.2 % (11.6-15.6); WHITE BLOOD COUNT 10.6 K/mm3 (4.0-10.0)
[2020-07-10] MEDS: DEXTROSE 5%-0.45% SALINE 1,000 ML IV SCH ×2 (10:43→22:03)
[2020-07-10 10:44] LABS: POTASSIUM 3.6 mmol/L (3.5-5.1)
[2020-07-10] MEDS: PANTOPRAZOLE 40 MG TABLET PO SCH ×2 (10:44→21:44)
[2020-07-10] MEDS: FUROSEMIDE 40 MG TABLET (FP) PO SCH (10:44)
[2020-07-10] MEDS: GABAPENTIN 300 MG CAPSULE PO SCH (10:44)
[2020-07-10] MEDS: amLODIPine BESYLATE 5 MG TABLET (FP) PO SCH (10:44)
[2020-07-10] MEDS: ASPIRIN COATED 81 MG TABLET.EC PO SCH (10:44)
[2020-07-10] MEDS: NICOTINE 21 MG/24 HOURS TOPICAL PATCH TD SCH (10:45)
[2020-07-10] MEDS: BUDESONIDE/FORMETEROL FUMARATE 160/4.5 mcg INHALER IH SCH ×2 (10:45→22:03)
[2020-07-10] MEDS: metoPROLOL SUCCINATE 25 MG TAB.SR.24H (FP) PO SCH (10:45)
[2020-07-10] MEDS: ENOXAPARIN NA (PORCINE) 40 MG/0.4 ML DISP.SYRIN SQ SCH (10:45)
[2020-07-10 10:48] LABS: BLOOD UREA NITROGEN 9.1 mg/dL (7-18); CALCIUM 7.6 mg/dL (8.5-10.1)
[2020-07-10 10:49] LABS: ALBUMIN 2.2 g/dl (3.4-5.0)
[2020-07-10 10:51] LABS: CREATININE 0.9 mg/dL (0.55-1.3)
[2020-07-10 10:53] LABS: TOT PROT 4.6 g/dl (6.4-8.2)
[2020-07-10] MEDS: POLYETHYLENE GLYCOL 3350 119 GM BTL PO SCH ×2 (10:56→21:45)
[2020-07-10 11:07] LABS: BILIRUBIN,TOTAL 0.7 mg/dL (0.2-1)
[2020-07-10] MEDS: MELATONIN 5 MG TABLETS PO PRN (21:44)
[2020-07-10] MEDS: ATORVASTATIN CA 20 MG TABLET (FP) PO SCH (21:44)
[2020-07-11] MEDS: ASPIRIN COATED 81 MG TABLET.EC PO SCH (09:56)
[2020-07-11] MEDS: FUROSEMIDE 40 MG TABLET (FP) PO SCH (09:57)
[2020-07-11] MEDS: NICOTINE 21 MG/24 HOURS TOPICAL PATCH TD SCH (09:57)
[2020-07-11] MEDS: PANTOPRAZOLE 40 MG TABLET PO SCH ×2 (09:57→21:57)
[2020-07-11] MEDS: ENOXAPARIN NA (PORCINE) 40 MG/0.4 ML DISP.SYRIN SQ SCH (09:57)
[2020-07-11] MEDS: GABAPENTIN 300 MG CAPSULE PO SCH (09:57)
[2020-07-11] MEDS: amLODIPine BESYLATE 5 MG TABLET (FP) PO SCH (09:58)
[2020-07-11] MEDS: BUDESONIDE/FORMETEROL FUMARATE 160/4.5 mcg INHALER IH SCH ×2 (09:58→21:57)
[2020-07-11] MEDS: DEXTROSE 5%-0.45% SALINE 1,000 ML IV SCH ×2 (09:58→17:18)
[2020-07-11] MEDS: metoPROLOL SUCCINATE 25 MG TAB.SR.24H (FP) PO SCH (09:59)
[2020-07-11] MEDS: POLYETHYLENE GLYCOL 3350 119 GM BTL PO SCH ×2 (10:10→21:58)
[2020-07-11] MEDS ORDERED: IRON SUCROSE INJECTION 200 MG in SODIUM CHLORIDE 90 ML IVPB ONE (11:30)
[2020-07-11] MEDS ORDERED: SODIUM CHLORIDE 250 ML IV ONE (17:15)
[2020-07-11 20:03] LABS: BASO % 0.4 % (0-2.0); EOS % 0.7 % (0-4.5); HEMATOCRIT 25.3 % (32.4-45.2); HEMOGLOBIN 8.2 GM/dL (10.7-15.3); LYMPH % 15.9 % (8-40); MCH 29.3 pg (25.7-33.7); MCHC 32.3 g/dl (32.0-36.0); MEAN CELL VOLUME 90.7 fl (80-96); MEAN PLT VOLUME 8.5 fl (7.5-11.1); MONO % 6.7 % (3.8-10.2); NEUT % 76.3 % (42.8-82.8); PLATELET COUNT 205 K/MM3 (134-434); RBC 2.79 M/mm3 (3.60-5.2); RDW 18.7 % (11.6-15.6); WHITE BLOOD COUNT 9.2 K/mm3 (4.0-10.0)
[2020-07-11] MEDS: ATORVASTATIN CA 20 MG TABLET (FP) PO SCH (21:57)
[2020-07-11] MEDS: MELATONIN 5 MG TABLETS PO PRN (21:57)
[2020-07-12] MEDS: DEXTROSE 5%-0.45% SALINE 1,000 ML IV SCH ×2 (00:50→20:48)
[2020-07-12 09:08] LABS: BASO % 0.7 % (0-2.0); EOS % 0.9 % (0-4.5); HEMATOCRIT 24.8 % (32.4-45.2); HEMOGLOBIN 8.1 GM/dL (10.7-15.3); LYMPH % 20.3 % (8-40); MCH 29.3 pg (25.7-33.7); MCHC 32.5 g/dl (32.0-36.0); MEAN CELL VOLUME 90.4 fl (80-96); MEAN PLT VOLUME 8.7 fl (7.5-11.1); MONO % 8.7 % (3.8-10.2); NEUT % 69.4 % (42.8-82.8); PLATELET COUNT 208 K/MM3 (134-434); RBC 2.75 M/mm3 (3.60-5.2); RDW 18.7 % (11.6-15.6); WHITE BLOOD COUNT 7.8 K/mm3 (4.0-10.0)
[2020-07-12 09:49] LABS: POTASSIUM 3.5 mmol/L (3.5-5.1)
[2020-07-12 10:17] LABS: ALBUMIN 2.2 g/dl (3.4-5.0); BLOOD UREA NITROGEN 8.1 mg/dL (7-18); CALCIUM 8.1 mg/dL (8.5-10.1)
[2020-07-12 10:20] LABS: CREATININE 0.9 mg/dL (0.55-1.3)
[2020-07-12 10:22] LABS: BILIRUBIN,TOTAL 1.2 mg/dL (0.2-1); TOT PROT 4.7 g/dl (6.4-8.2)
[2020-07-12] MEDS: PANTOPRAZOLE 40 MG TABLET PO SCH ×2 (10:58→22:19)
[2020-07-12] MEDS: POLYETHYLENE GLYCOL 3350 119 GM BTL PO SCH ×2 (10:58→22:18)
[2020-07-12] MEDS: FUROSEMIDE 40 MG TABLET (FP) PO SCH (10:58)
[2020-07-12] MEDS: GABAPENTIN 300 MG CAPSULE PO SCH (10:58)
[2020-07-12] MEDS: NICOTINE 21 MG/24 HOURS TOPICAL PATCH TD SCH (10:58)
[2020-07-12] MEDS: ASPIRIN COATED 81 MG TABLET.EC PO SCH (11:03)
[2020-07-12] MEDS: BUDESONIDE/FORMETEROL FUMARATE 160/4.5 mcg INHALER IH SCH ×2 (11:03→22:19)
[2020-07-12] MEDS: ATORVASTATIN CA 20 MG TABLET (FP) PO SCH (22:18)
[2020-07-12] MEDS: MELATONIN 5 MG TABLETS PO PRN (22:20)
[2020-07-13] MEDS: DEXTROSE 5%-0.45% SALINE 1,000 ML IV SCH ×2 (07:09→13:02)
[2020-07-13] MEDS ORDERED: PT OWN MED DRAWER 7, Y5N ONE (09:46)
[2020-07-13] MEDS: FUROSEMIDE 40 MG TABLET (FP) PO SCH (09:50)
[2020-07-13] MEDS: ASPIRIN COATED 81 MG TABLET.EC PO SCH (09:50)
[2020-07-13] MEDS: NICOTINE 21 MG/24 HOURS TOPICAL PATCH TD SCH (09:51)
[2020-07-13] MEDS: BUDESONIDE/FORMETEROL FUMARATE 160/4.5 mcg INHALER IH SCH ×2 (09:51→22:02)
[2020-07-13] MEDS: PANTOPRAZOLE 40 MG TABLET PO SCH ×2 (09:51→21:44)
[2020-07-13] MEDS: GABAPENTIN 300 MG CAPSULE PO SCH (09:51)
[2020-07-13] MEDS: POLYETHYLENE GLYCOL 3350 119 GM BTL PO SCH ×2 (09:51→22:00)
[2020-07-13] MEDS: ATORVASTATIN CA 20 MG TABLET (FP) PO SCH (21:44)
[2020-07-13] MEDS: MELATONIN 5 MG TABLETS PO PRN (22:41)
[2020-07-14 09:16] LABS: BASO % 0.7 % (0-2.0); EOS % 0.7 % (0-4.5); HEMATOCRIT 31.1 % (32.4-45.2); HEMOGLOBIN 10.4 GM/dL (10.7-15.3); LYMPH % 18.4 % (8-40); MCH 30.1 pg (25.7-33.7); MCHC 33.4 g/dl (32.0-36.0); MEAN CELL VOLUME 90.2 fl (80-96); MEAN PLT VOLUME 8.1 fl (7.5-11.1); MONO % 8.7 % (3.8-10.2); NEUT % 71.5 % (42.8-82.8); PLATELET COUNT 227 K/MM3 (134-434); RBC 3.45 M/mm3 (3.60-5.2); RDW 18.3 % (11.6-15.6); WHITE BLOOD COUNT 8.9 K/mm3 (4.0-10.0)
[2020-07-14 09:40] LABS: POTASSIUM 3.5 mmol/L (3.5-5.1)
[2020-07-14 09:58] LABS: CALCIUM 8.5 mg/dL (8.5-10.1)
[2020-07-14 09:59] LABS: ALBUMIN 2.3 g/dl (3.4-5.0); BLOOD UREA NITROGEN 11.8 mg/dL (7-18)
[2020-07-14 10:02] LABS: CREATININE 0.9 mg/dL (0.55-1.3); TOT PROT 5.2 g/dl (6.4-8.2)
[2020-07-14] MEDS: PANTOPRAZOLE 40 MG TABLET PO SCH ×2 (11:08→22:56)
[2020-07-14] MEDS: GABAPENTIN 300 MG CAPSULE PO SCH (11:08)
[2020-07-14] MEDS: FUROSEMIDE 40 MG TABLET (FP) PO SCH (11:09)
[2020-07-14] MEDS: ASPIRIN COATED 81 MG TABLET.EC PO SCH (11:09)
[2020-07-14] MEDS: POLYETHYLENE GLYCOL 3350 119 GM BTL PO SCH ×2 (11:09→22:56)
[2020-07-14] MEDS: BUDESONIDE/FORMETEROL FUMARATE 160/4.5 mcg INHALER IH SCH ×2 (11:09→22:56)
[2020-07-14] MEDS: NICOTINE 21 MG/24 HOURS TOPICAL PATCH TD SCH (11:09)
[2020-07-14] MEDS ORDERED: IRON SUCROSE INJECTION 200 MG in SODIUM CHLORIDE 90 ML IVPB ONE (16:48)
[2020-07-14] MEDS: MELATONIN 5 MG TABLETS PO PRN (22:56)
[2020-07-14] MEDS: ATORVASTATIN CA 20 MG TABLET (FP) PO SCH (22:56)
[2020-07-15 08:08] LABS: BASO % 0.6 % (0-2.0); EOS % 0.7 % (0-4.5); HEMATOCRIT 29.7 % (32.4-45.2); LYMPH % 24.9 % (8-40); MCH 30.5 pg (25.7-33.7); MCHC 33.8 g/dl (32.0-36.0); MEAN CELL VOLUME 90.4 fl (80-96); MEAN PLT VOLUME 7.8 fl (7.5-11.1); MONO % 7.9 % (3.8-10.2); NEUT % 65.9 % (42.8-82.8); PLATELET COUNT 239 K/MM3 (134-434); RBC 3.29 M/mm3 (3.60-5.2); RDW 18.5 % (11.6-15.6); WHITE BLOOD COUNT 7.1 K/mm3 (4.0-10.0)
[2020-07-15 08:20] LABS: POTASSIUM 3.8 mmol/L (3.5-5.1)
[2020-07-15 08:29] LABS: ALBUMIN 2.2 g/dl (3.4-5.0); CALCIUM 8.4 mg/dL (8.5-10.1)
[2020-07-15 08:30] LABS: BLOOD UREA NITROGEN 11.6 mg/dL (7-18)
[2020-07-15 08:34] LABS: BILIRUBIN,TOTAL 1.4 mg/dL (0.2-1); TOT PROT 4.9 g/dl (6.4-8.2)
[2020-07-15] MEDS: GABAPENTIN 300 MG CAPSULE PO SCH (09:12)
[2020-07-15] MEDS: PANTOPRAZOLE 40 MG TABLET PO SCH ×2 (09:12→22:01)
[2020-07-15] MEDS: ASPIRIN COATED 81 MG TABLET.EC PO SCH (09:12)
[2020-07-15] MEDS: NICOTINE 21 MG/24 HOURS TOPICAL PATCH TD SCH (09:12)
[2020-07-15] MEDS: FUROSEMIDE 40 MG TABLET (FP) PO SCH (09:12)
[2020-07-15] MEDS: POLYETHYLENE GLYCOL 3350 119 GM BTL PO SCH ×2 (09:23→22:01)
[2020-07-15] MEDS: BUDESONIDE/FORMETEROL FUMARATE 160/4.5 mcg INHALER IH SCH ×2 (09:24→22:00)
[2020-07-15] MEDS: MELATONIN 5 MG TABLETS PO PRN (22:00)
[2020-07-15] MEDS: ATORVASTATIN CA 20 MG TABLET (FP) PO SCH (22:01)
[2020-07-16 08:07] LABS: EOS % 1.1 % (0-4.5); HEMATOCRIT 29.1 % (32.4-45.2); HEMOGLOBIN 9.8 GM/dL (10.7-15.3); LYMPH % 24.4 % (8-40); MCH 30.7 pg (25.7-33.7); MCHC 33.6 g/dl (32.0-36.0); MEAN CELL VOLUME 91.2 fl (80-96); MEAN PLT VOLUME 7.8 fl (7.5-11.1); MONO % 8.5 % (3.8-10.2); PLATELET COUNT 237 K/MM3 (134-434); RBC 3.18 M/mm3 (3.60-5.2); RDW 18.4 % (11.6-15.6); WHITE BLOOD COUNT 6.8 K/mm3 (4.0-10.0)
[2020-07-16 08:17] LABS: POTASSIUM 3.5 mmol/L (3.5-5.1)
[2020-07-16 08:21] LABS: CALCIUM 8.4 mg/dL (8.5-10.1)
[2020-07-16 08:22] LABS: ALBUMIN 2.2 g/dl (3.4-5.0)
[2020-07-16 08:25] LABS: CREATININE 1.1 mg/dL (0.55-1.3)
[2020-07-16 08:27] LABS: TOT PROT 4.9 g/dl (6.4-8.2)
[2020-07-16] MEDS: GABAPENTIN 300 MG CAPSULE PO SCH (09:42)
[2020-07-16] MEDS: FUROSEMIDE 40 MG TABLET (FP) PO SCH (09:43)
[2020-07-16] MEDS: ASPIRIN COATED 81 MG TABLET.EC PO SCH (09:43)
[2020-07-16] MEDS: NICOTINE 21 MG/24 HOURS TOPICAL PATCH TD SCH (09:43)
[2020-07-16] MEDS: PANTOPRAZOLE 40 MG TABLET PO SCH ×2 (09:43→22:15)
[2020-07-16] MEDS: BUDESONIDE/FORMETEROL FUMARATE 160/4.5 mcg INHALER IH SCH ×2 (09:56→22:14)
[2020-07-16] MEDS ORDERED: IRON SUCROSE INJECTION 200 MG in SODIUM CHLORIDE 90 ML IVPB ONE (10:00)
[2020-07-16] MEDS: POLYETHYLENE GLYCOL 3350 119 GM BTL PO SCH ×2 (11:08→22:15)
[2020-07-16] MEDS: MELATONIN 5 MG TABLETS PO PRN (22:15)
[2020-07-16] MEDS: ATORVASTATIN CA 20 MG TABLET (FP) PO SCH (22:15)
[2020-07-17] MEDS ORDERED: POLYETHYLENE GLYCOL 3350 255 GM BTL PO ONE (08:00)
[2020-07-17] MEDS ORDERED: BISACODYL 5 MG TABLET.DR (FP) PO ONE (10:00)
[2020-07-17] MEDS: PANTOPRAZOLE 40 MG TABLET PO SCH ×2 (10:14→21:59)
[2020-07-17] MEDS: FUROSEMIDE 40 MG TABLET (FP) PO SCH (10:14)
[2020-07-17] MEDS: NICOTINE 21 MG/24 HOURS TOPICAL PATCH TD SCH (10:14)
[2020-07-17] MEDS: GABAPENTIN 300 MG CAPSULE PO SCH (10:14)
[2020-07-17] MEDS: ASPIRIN COATED 81 MG TABLET.EC PO SCH (10:14)
[2020-07-17] MEDS: BUDESONIDE/FORMETEROL FUMARATE 160/4.5 mcg INHALER IH SCH ×2 (10:25→21:59)
[2020-07-17] MEDS: POLYETHYLENE GLYCOL 3350 119 GM BTL PO SCH ×2 (10:25→21:59)
[2020-07-17] MEDS: MELATONIN 5 MG TABLETS PO PRN (21:59)
[2020-07-17] MEDS: ATORVASTATIN CA 20 MG TABLET (FP) PO SCH (21:59)
[2020-07-17] MEDS ORDERED: PT OWN MED DRAWER 7, Y5N ONE (23:19)
[2020-07-18] MEDS ORDERED: SODIUM PHOSPHATE/NA BIPHOS 133 ML ENEMA RC ONE (04:00)
[2020-07-18] MEDS ORDERED: MIDAZOLAM HCL 2 MG/2 ML SINGLE DOSE VIAL ONE (07:54)
[2020-07-18] MEDS ORDERED: PT OWN MED DRAWER 7, Y5N ONE (09:28)
[2020-07-18 11:02] LABS: POTASSIUM 3.7 mmol/L (3.5-5.1)
[2020-07-18 11:05] LABS: ALBUMIN 2.4 g/dl (3.4-5.0); BLOOD UREA NITROGEN 13.5 mg/dL (7-18); CALCIUM 8.8 mg/dL (8.5-10.1)
[2020-07-18 11:08] LABS: CREATININE 1.2 mg/dL (0.55-1.3)
[2020-07-18 11:09] LABS: BILIRUBIN,TOTAL 0.6 mg/dL (0.2-1); TOT PROT 5.6 g/dl (6.4-8.2)
[2020-07-18 11:10] LABS: BASO % 0.5 % (0-2.0); EOS % 0.2 % (0-4.5); HEMATOCRIT 34.3 % (32.4-45.2); HEMOGLOBIN 11.2 GM/dL (10.7-15.3); MCHC 32.6 g/dl (32.0-36.0); MEAN CELL VOLUME 91.8 fl (80-96); MEAN PLT VOLUME 7.6 fl (7.5-11.1); MONO % 6.9 % (3.8-10.2); NEUT % 77.4 % (42.8-82.8); PLATELET COUNT 272 K/MM3 (134-434); RBC 3.74 M/mm3 (3.60-5.2); RDW 19.2 % (11.6-15.6); WHITE BLOOD COUNT 8.4 K/mm3 (4.0-10.0)
[2020-07-18] MEDS: ASPIRIN COATED 81 MG TABLET.EC PO SCH ×2 (11:42→12:03)
[2020-07-18] MEDS: NICOTINE 21 MG/24 HOURS TOPICAL PATCH TD SCH ×2 (11:42→11:48)
[2020-07-18] MEDS: BUDESONIDE/FORMETEROL FUMARATE 160/4.5 mcg INHALER IH SCH ×2 (11:42→21:54)
[2020-07-18] MEDS: FUROSEMIDE 40 MG TABLET (FP) PO SCH ×2 (11:42→12:03)
[2020-07-18] MEDS: PANTOPRAZOLE 40 MG TABLET PO SCH ×3 (11:42→21:53)
[2020-07-18] MEDS: GABAPENTIN 300 MG CAPSULE PO SCH ×2 (11:42→12:03)
[2020-07-18] MEDS: POLYETHYLENE GLYCOL 3350 119 GM BTL PO SCH ×2 (11:42→21:52)
[2020-07-18] MEDS ORDERED: IRON SUCROSE INJECTION 200 MG in SODIUM CHLORIDE 90 ML IVPB ONE (17:16)
[2020-07-18] MEDS: MELATONIN 5 MG TABLETS PO PRN (21:53)
[2020-07-18] MEDS: ATORVASTATIN CA 20 MG TABLET (FP) PO SCH (21:53)
[2020-07-19 10:15] LABS: BASO % 0.5 % (0-2.0); EOS % 0.1 % (0-4.5); HEMATOCRIT 35.9 % (32.4-45.2); HEMOGLOBIN 11.6 GM/dL (10.7-15.3); LYMPH % 13.9 % (8-40); MCHC 32.2 g/dl (32.0-36.0); MEAN CELL VOLUME 93.2 fl (80-96); MEAN PLT VOLUME 7.6 fl (7.5-11.1); MONO % 6.1 % (3.8-10.2); NEUT % 79.4 % (42.8-82.8); PLATELET COUNT 252 K/MM3 (134-434); RBC 3.85 M/mm3 (3.60-5.2); RDW 19.3 % (11.6-15.6); WHITE BLOOD COUNT 12.7 K/mm3 (4.0-10.0)
[2020-07-19 10:37] LABS: POTASSIUM 3.6 mmol/L (3.5-5.1)
[2020-07-19 10:42] LABS: ALBUMIN 2.4 g/dl (3.4-5.0); BLOOD UREA NITROGEN 16.9 mg/dL (7-18); CALCIUM 8.7 mg/dL (8.5-10.1)
[2020-07-19 10:45] LABS: CREATININE 1.3 mg/dL (0.55-1.3)
[2020-07-19 10:46] LABS: TOT PROT 5.8 g/dl (6.4-8.2)
[2020-07-19 10:49] LABS: BILIRUBIN,TOTAL 0.9 mg/dL (0.2-1)
[2020-07-19] MEDS: POLYETHYLENE GLYCOL 3350 119 GM BTL PO SCH ×2 (11:49→21:51)
[2020-07-19] MEDS: FUROSEMIDE 40 MG TABLET (FP) PO SCH (11:49)
[2020-07-19] MEDS: ASPIRIN COATED 81 MG TABLET.EC PO SCH (11:49)
[2020-07-19] MEDS: NICOTINE 21 MG/24 HOURS TOPICAL PATCH TD SCH (11:49)
[2020-07-19] MEDS: GABAPENTIN 300 MG CAPSULE PO SCH (11:49)
[2020-07-19] MEDS: BUDESONIDE/FORMETEROL FUMARATE 160/4.5 mcg INHALER IH SCH ×3 (11:53→21:51)
[2020-07-19] MEDS: PANTOPRAZOLE 40 MG TABLET PO SCH ×2 (11:58→21:44)
[2020-07-19] MEDS: ATORVASTATIN CA 20 MG TABLET (FP) PO SCH (21:44)
[2020-07-19] MEDS: MELATONIN 5 MG TABLETS PO PRN (21:45)
[2020-07-20 08:24] LABS: N-TERMINAL BNP 1357.5 pg/ml (5-450)
[2020-07-20] MEDS ORDERED: PT OWN MED DRAWER 7, Y5N ONE (09:28)
[2020-07-20] MEDS: PANTOPRAZOLE 40 MG TABLET PO SCH ×2 (09:31→21:54)
[2020-07-20] MEDS: GABAPENTIN 300 MG CAPSULE PO SCH (09:31)
[2020-07-20] MEDS: ASPIRIN COATED 81 MG TABLET.EC PO SCH (09:31)
[2020-07-20] MEDS: NICOTINE 21 MG/24 HOURS TOPICAL PATCH TD SCH (09:31)
[2020-07-20] MEDS: POLYETHYLENE GLYCOL 3350 119 GM BTL PO SCH ×2 (09:32→21:54)
[2020-07-20] MEDS: BUDESONIDE/FORMETEROL FUMARATE 160/4.5 mcg INHALER IH SCH ×2 (09:32→21:55)
[2020-07-20] MEDS: ATORVASTATIN CA 20 MG TABLET (FP) PO SCH (21:54)
[2020-07-21] MEDS ORDERED: PT OWN MED DRAWER 7, Y5N ONE ×2 (09:48→20:34)
[2020-07-21] MEDS: ASPIRIN COATED 81 MG TABLET.EC PO SCH (09:53)
[2020-07-21] MEDS: GABAPENTIN 300 MG CAPSULE PO SCH (09:53)
[2020-07-21] MEDS: PANTOPRAZOLE 40 MG TABLET PO SCH ×2 (09:53→21:20)
[2020-07-21] MEDS: NICOTINE 21 MG/24 HOURS TOPICAL PATCH TD SCH (09:54)
[2020-07-21] MEDS: BUDESONIDE/FORMETEROL FUMARATE 160/4.5 mcg INHALER IH SCH ×2 (09:54→21:20)
[2020-07-21] MEDS: POLYETHYLENE GLYCOL 3350 119 GM BTL PO SCH ×2 (09:55→21:20)
[2020-07-21] MEDS ORDERED: INSULIN (NOVOLOG) ASPART 100 UNITS/ML 10ML VIAL ONE (11:26)
[2020-07-21] MEDS: MELATONIN 5 MG TABLETS PO PRN (21:19)
[2020-07-21] MEDS: ATORVASTATIN CA 20 MG TABLET (FP) PO SCH (21:19)
[2020-07-21] MEDS: metroNIDAZOLE 250 MG TABLET PO SCH (21:19)
[2020-07-22] MEDS: metroNIDAZOLE 250 MG TABLET PO SCH ×3 (06:14→22:13)
[2020-07-22 07:53] LABS: BASO % 0.2 % (0-2.0); EOS % 0.1 % (0-4.5); HEMATOCRIT 31.8 % (32.4-45.2); HEMOGLOBIN 10.5 GM/dL (10.7-15.3); LYMPH % 7.4 % (8-40); MCH 29.9 pg (25.7-33.7); MCHC 32.8 g/dl (32.0-36.0); MEAN CELL VOLUME 91.2 fl (80-96); MEAN PLT VOLUME 8.5 fl (7.5-11.1); NEUT % 88.3 % (42.8-82.8); PLATELET COUNT 227 K/MM3 (134-434); RBC 3.49 M/mm3 (3.60-5.2); RDW 18.3 % (11.6-15.6); WHITE BLOOD COUNT 12.2 K/mm3 (4.0-10.0)
[2020-07-22 08:29] LABS: ALBUMIN 1.7 g/dl (3.4-5.0); BILIRUBIN,TOTAL 0.6 mg/dL (0.2-1); BLOOD UREA NITROGEN 34.9 mg/dL (7-18); CALCIUM 8.9 mg/dL (8.5-10.1); CREATININE 1.6 mg/dL (0.55-1.3); TOT PROT 5.3 g/dl (6.4-8.2)
[2020-07-22] MEDS ORDERED: PT OWN MED DRAWER 7, Y5N ONE (09:34)
[2020-07-22] MEDS: POLYETHYLENE GLYCOL 3350 119 GM BTL PO SCH (09:38)
[2020-07-22] MEDS: NICOTINE 21 MG/24 HOURS TOPICAL PATCH TD SCH (09:41)
[2020-07-22] MEDS: ASPIRIN COATED 81 MG TABLET.EC PO SCH (09:41)
[2020-07-22] MEDS: PANTOPRAZOLE 40 MG TABLET PO SCH ×2 (09:41→22:14)
[2020-07-22] MEDS: GABAPENTIN 300 MG CAPSULE PO SCH (09:41)
[2020-07-22 09:52] LABS: ANISOCYTOSIS 1+; MACROCYTOSIS 0; PLATELET ESTIMATE NORMAL
[2020-07-22] MEDS: BUDESONIDE/FORMETEROL FUMARATE 160/4.5 mcg INHALER IH SCH ×2 (09:53→22:14)
[2020-07-22 13:32] LABS: POTASSIUM 4.3 mmol/L (3.5-5.1)
[2020-07-22] MEDS: MINERAL OIL/PET HY-PHL TOPICAL OINTMENT 454 GM JAR TP SCH (15:08)
[2020-07-22] MEDS: NYSTATIN 100,000 UNIT/GM TOPICAL CREAM 15 GM TUBE TP SCH ×2 (15:09→22:14)
[2020-07-22] MEDS: ATORVASTATIN CA 20 MG TABLET (FP) PO SCH (22:14)
[2020-07-22] MEDS: MELATONIN 5 MG TABLETS PO PRN (22:14)
[2020-07-23] MEDS: metroNIDAZOLE 250 MG TABLET PO SCH ×3 (05:30→22:09)
[2020-07-23] MEDS: MINERAL OIL/PET HY-PHL TOPICAL OINTMENT 454 GM JAR TP SCH (09:45)
[2020-07-23] MEDS: ASPIRIN COATED 81 MG TABLET.EC PO SCH (09:45)
[2020-07-23] MEDS: NICOTINE 21 MG/24 HOURS TOPICAL PATCH TD SCH (09:45)
[2020-07-23] MEDS: PANTOPRAZOLE 40 MG TABLET PO SCH ×2 (09:45→22:09)
[2020-07-23] MEDS: GABAPENTIN 300 MG CAPSULE PO SCH (09:45)
[2020-07-23] MEDS: NYSTATIN 100,000 UNIT/GM TOPICAL CREAM 15 GM TUBE TP SCH ×2 (09:45→22:12)
[2020-07-23] MEDS: BUDESONIDE/FORMETEROL FUMARATE 160/4.5 mcg INHALER IH SCH ×2 (09:45→22:52)
[2020-07-23 09:59] LABS: BASO % 0.2 % (0-2.0); EOS % 0.1 % (0-4.5); HEMOGLOBIN 10.1 GM/dL (10.7-15.3); LYMPH % 8.4 % (8-40); MCH 29.6 pg (25.7-33.7); MCHC 32.6 g/dl (32.0-36.0); MEAN CELL VOLUME 90.9 fl (80-96); MEAN PLT VOLUME 8.7 fl (7.5-11.1); MONO % 5.4 % (3.8-10.2); NEUT % 85.9 % (42.8-82.8); PLATELET COUNT 231 K/MM3 (134-434); RBC 3.41 M/mm3 (3.60-5.2); RDW 18.5 % (11.6-15.6); WHITE BLOOD COUNT 11.8 K/mm3 (4.0-10.0)
[2020-07-23 10:31] LABS: POTASSIUM 4.4 mmol/L (3.5-5.1)
[2020-07-23 10:34] LABS: CALCIUM 8.6 mg/dL (8.5-10.1)
[2020-07-23 10:35] LABS: ALBUMIN 1.7 g/dl (3.4-5.0); BLOOD UREA NITROGEN 34.2 mg/dL (7-18)
[2020-07-23 10:38] LABS: CREATININE 1.5 mg/dL (0.55-1.3)
[2020-07-23 10:39] LABS: BILIRUBIN,TOTAL 0.6 mg/dL (0.2-1); TOT PROT 5.3 g/dl (6.4-8.2)
[2020-07-23 12:07] LABS: ANISOCYTOSIS 1+; MACROCYTOSIS 1+; PLATELET ESTIMATE NORMAL; TARGET CELLS 1+
[2020-07-23] MEDS ORDERED: PT OWN MED DRAWER 7, Y5N ONE (21:12)
[2020-07-23] MEDS: ATORVASTATIN CA 20 MG TABLET (FP) PO SCH (22:09)
[2020-07-24] MEDS: metroNIDAZOLE 250 MG TABLET PO SCH ×3 (05:59→22:16)
[2020-07-24] MEDS: NICOTINE 21 MG/24 HOURS TOPICAL PATCH TD SCH (09:17)
[2020-07-24] MEDS: GABAPENTIN 300 MG CAPSULE PO SCH (09:17)
[2020-07-24] MEDS: MINERAL OIL/PET HY-PHL TOPICAL OINTMENT 454 GM JAR TP SCH (09:17)
[2020-07-24] MEDS: NYSTATIN 100,000 UNIT/GM TOPICAL CREAM 15 GM TUBE TP SCH ×2 (09:17→22:16)
[2020-07-24] MEDS: PANTOPRAZOLE 40 MG TABLET PO SCH ×2 (09:17→22:16)
[2020-07-24] MEDS: ASPIRIN COATED 81 MG TABLET.EC PO SCH (09:17)
[2020-07-24] MEDS: BUDESONIDE/FORMETEROL FUMARATE 160/4.5 mcg INHALER IH SCH ×2 (09:18→22:16)
[2020-07-24 20:22] LABS: EPI CELLS >36 /uL (0-25.1); HYALINE CASTS 739 /uL (0-3.1); URINE APPEARANCE TURBID; URINE BACTERIA 5848 /uL (0-1359); URINE BILIRUBIN NEGATIVE (NEGATIVE); URINE COLOR ORANGE; URINE GLUCOSE (UA) NEGATIVE (NEGATIVE); URINE KETONE NEGATIVE (NEGATIVE); URINE LEUK ESTERASE 3+ (NEGATIVE); URINE NITRITE NEGATIVE (NEGATIVE); URINE PROTEIN 3+ (NEGATIVE); URINE UROBILINOGEN 0.2 mg/dL (0.2-1.0); URINE WBC 34449 /uL (0-25.8)
[2020-07-24 21:02] LABS: URINE RBC 1577.5 /uL (0-23.9); YEAST NEGATIVE (NEGATIVE)
[2020-07-24] MEDS: ATORVASTATIN CA 20 MG TABLET (FP) PO SCH (22:16)
[2020-07-24] MEDS: MELATONIN 5 MG TABLETS PO PRN (22:16)
[2020-07-25] MEDS: metroNIDAZOLE 250 MG TABLET PO SCH ×3 (05:46→21:27)
[2020-07-25] MEDS: ASPIRIN COATED 81 MG TABLET.EC PO SCH (10:53)
[2020-07-25] MEDS: NICOTINE 21 MG/24 HOURS TOPICAL PATCH TD SCH (10:53)
[2020-07-25] MEDS: PANTOPRAZOLE 40 MG TABLET PO SCH ×2 (10:53→21:27)
[2020-07-25] MEDS: GABAPENTIN 300 MG CAPSULE PO SCH (10:53)
[2020-07-25] MEDS: BUDESONIDE/FORMETEROL FUMARATE 160/4.5 mcg INHALER IH SCH ×2 (10:53→21:36)
[2020-07-25] MEDS: NYSTATIN 100,000 UNIT/GM TOPICAL CREAM 15 GM TUBE TP SCH ×2 (10:54→21:36)
[2020-07-25] MEDS: MINERAL OIL/PET HY-PHL TOPICAL OINTMENT 454 GM JAR TP SCH (10:54)
[2020-07-25] MEDS: ATORVASTATIN CA 20 MG TABLET (FP) PO SCH (21:27)
[2020-07-26] MEDS: metroNIDAZOLE 250 MG TABLET PO SCH ×3 (05:07→21:16)
[2020-07-26] MEDS: PANTOPRAZOLE 40 MG TABLET PO SCH ×2 (09:05→21:16)
[2020-07-26] MEDS: NICOTINE 21 MG/24 HOURS TOPICAL PATCH TD SCH (09:05)
[2020-07-26] MEDS: GABAPENTIN 300 MG CAPSULE PO SCH (09:05)
[2020-07-26] MEDS: MINERAL OIL/PET HY-PHL TOPICAL OINTMENT 454 GM JAR TP SCH (09:05)
[2020-07-26] MEDS: NYSTATIN 100,000 UNIT/GM TOPICAL CREAM 15 GM TUBE TP SCH ×2 (09:05→21:17)
[2020-07-26] MEDS: ASPIRIN COATED 81 MG TABLET.EC PO SCH (09:05)
[2020-07-26] MEDS: BUDESONIDE/FORMETEROL FUMARATE 160/4.5 mcg INHALER IH SCH ×2 (09:07→21:17)
[2020-07-26] MEDS ORDERED: PT OWN MED DRAWER 7, Y5N ONE (12:41)
[2020-07-26] MEDS: ATORVASTATIN CA 20 MG TABLET (FP) PO SCH (21:16)
[2020-07-27] MEDS: metroNIDAZOLE 250 MG TABLET PO SCH ×3 (05:43→21:26)
[2020-07-27] MEDS: BUDESONIDE/FORMETEROL FUMARATE 160/4.5 mcg INHALER IH SCH ×2 (10:42→21:27)
[2020-07-27] MEDS: MINERAL OIL/PET HY-PHL TOPICAL OINTMENT 454 GM JAR TP SCH (10:43)
[2020-07-27] MEDS: ASPIRIN COATED 81 MG TABLET.EC PO SCH (10:44)
[2020-07-27] MEDS: NICOTINE 21 MG/24 HOURS TOPICAL PATCH TD SCH (10:45)
[2020-07-27] MEDS: PANTOPRAZOLE 40 MG TABLET PO SCH ×2 (10:45→21:26)
[2020-07-27] MEDS: GABAPENTIN 300 MG CAPSULE PO SCH (10:45)
[2020-07-27] MEDS: NYSTATIN 100,000 UNIT/GM TOPICAL CREAM 15 GM TUBE TP SCH ×2 (10:45→21:28)
[2020-07-27] MEDS ORDERED: PROPOFOL 20 ML ONE (11:26)
[2020-07-27] MEDS ORDERED: ceFAZolin SODIUM 1 GM VIAL IVPB ONE (11:40)
[2020-07-27] MEDS ORDERED: DEXTROSE 5%-WATER - 50 ML IVPB ONE ×2 (18:42→22:55)
[2020-07-27] MEDS ORDERED: ceFAZolin SODIUM 1 GM VIAL ONE ×2 (18:42→22:54)
[2020-07-27] MEDS: CEFAZOLIN 1 GM in DEXTROSE 5%-WATER - 50 ML IVPB SCH (19:08)
[2020-07-27] MEDS: ASCORBIC ACID 500 MG TABLET (FP) PO SCH (21:26)
[2020-07-27] MEDS: ATORVASTATIN CA 20 MG TABLET (FP) PO SCH (21:27)
[2020-07-28] MEDS: CEFAZOLIN 1 GM in DEXTROSE 5%-WATER - 50 ML IVPB SCH ×3 (01:12→17:25)
[2020-07-28] MEDS: metroNIDAZOLE 250 MG TABLET PO SCH ×3 (05:02→21:14)
[2020-07-28 08:50] LABS: BASO % 0.4 % (0-2.0); EOS % 0.4 % (0-4.5); HEMATOCRIT 32.2 % (32.4-45.2); HEMOGLOBIN 10.5 GM/dL (10.7-15.3); LYMPH % 8.4 % (8-40); MCH 29.5 pg (25.7-33.7); MCHC 32.6 g/dl (32.0-36.0); MEAN CELL VOLUME 90.5 fl (80-96); MONO % 5.1 % (3.8-10.2); NEUT % 85.7 % (42.8-82.8); PLATELET COUNT 370 K/MM3 (134-434); RBC 3.56 M/mm3 (3.60-5.2); RDW 18.4 % (11.6-15.6); WHITE BLOOD COUNT 21.7 K/mm3 (4.0-10.0)
[2020-07-28 09:37] LABS: ALBUMIN 1.9 g/dl (3.4-5.0); BILIRUBIN,TOTAL 0.3 mg/dL (0.2-1); BLOOD UREA NITROGEN 16.5 mg/dL (7-18); CALCIUM 8.4 mg/dL (8.5-10.1); CREATININE 0.8 mg/dL (0.55-1.3); POTASSIUM 5.6 mmol/L (3.5-5.1); TOT PROT 5.1 g/dl (6.4-8.2)
[2020-07-28] MEDS ORDERED: ceFAZolin SODIUM 1 GM VIAL ONE ×2 (10:17→17:21)
[2020-07-28] MEDS ORDERED: PT OWN MED DRAWER 7, Y5N ONE ×4 (10:17→18:58)
[2020-07-28] MEDS ORDERED: DEXTROSE 5%-WATER - 50 ML IVPB ONE ×2 (10:17→17:21)
[2020-07-28] MEDS: ASPIRIN COATED 81 MG TABLET.EC PO SCH (10:20)
[2020-07-28] MEDS: GABAPENTIN 300 MG CAPSULE PO SCH (10:21)
[2020-07-28] MEDS: PANTOPRAZOLE 40 MG TABLET PO SCH ×2 (10:22→21:15)
[2020-07-28] MEDS: ASCORBIC ACID 500 MG TABLET (FP) PO SCH ×2 (10:22→21:15)
[2020-07-28] MEDS: CHOLECALCIFEROL (VIT D3) 1,000 UNIT (25 MCG) TABLET PO SCH (10:22)
[2020-07-28] MEDS: BUDESONIDE/FORMETEROL FUMARATE 160/4.5 mcg INHALER IH SCH ×2 (10:23→21:15)
[2020-07-28] MEDS: NICOTINE 21 MG/24 HOURS TOPICAL PATCH TD SCH (10:23)
[2020-07-28] MEDS: MINERAL OIL/PET HY-PHL TOPICAL OINTMENT 454 GM JAR TP SCH (10:24)
[2020-07-28] MEDS: NYSTATIN 100,000 UNIT/GM TOPICAL CREAM 15 GM TUBE TP SCH ×2 (10:25→21:15)
[2020-07-28 11:50] LABS: ANISOCYTOSIS 1+; MACROCYTOSIS 0; PLATELET ESTIMATE NORMAL
[2020-07-28] MEDS ORDERED: FUROSEMIDE 40 MG TABLET (FP) PO ONE (17:32)
[2020-07-28] MEDS: SODIUM ZIRCONIUM CYCLOSILICATE (LOKELMA) 10 GM PACKET PO SCH (21:14)
[2020-07-28] MEDS: ATORVASTATIN CA 20 MG TABLET (FP) PO SCH (21:14)
[2020-07-29] MEDS ORDERED: DEXTROSE 5%-WATER - 50 ML IVPB ONE ×3 (00:44→17:08)
[2020-07-29] MEDS ORDERED: ceFAZolin SODIUM 1 GM VIAL ONE ×3 (00:44→17:07)
[2020-07-29] MEDS: CEFAZOLIN 1 GM in DEXTROSE 5%-WATER - 50 ML IVPB SCH ×3 (02:06→17:12)
[2020-07-29] MEDS: metroNIDAZOLE 250 MG TABLET PO SCH ×3 (06:07→21:19)
[2020-07-29 07:56] LABS: BASO % 1.6 % (0-2.0); EOS % 0.4 % (0-4.5); HEMATOCRIT 29.5 % (32.4-45.2); HEMOGLOBIN 9.7 GM/dL (10.7-15.3); LYMPH % 9.8 % (8-40); MCH 29.6 pg (25.7-33.7); MCHC 32.8 g/dl (32.0-36.0); MEAN CELL VOLUME 90.4 fl (80-96); MEAN PLT VOLUME 8.2 fl (7.5-11.1); MONO % 5.1 % (3.8-10.2); NEUT % 83.1 % (42.8-82.8); PLATELET COUNT 381 K/MM3 (134-434); RBC 3.26 M/mm3 (3.60-5.2); RDW 18.7 % (11.6-15.6); WHITE BLOOD COUNT 20.9 K/mm3 (4.0-10.0)
[2020-07-29 08:19] LABS: POTASSIUM 4.8 mmol/L (3.5-5.1)
[2020-07-29 08:34] LABS: BLOOD UREA NITROGEN 15.8 mg/dL (7-18); CALCIUM 8.1 mg/dL (8.5-10.1)
[2020-07-29 08:37] LABS: ALBUMIN 1.7 g/dl (3.4-5.0)
[2020-07-29 08:39] LABS: BILIRUBIN,TOTAL 0.2 mg/dL (0.2-1)
[2020-07-29 08:40] LABS: CREATININE 0.9 mg/dL (0.55-1.3)
[2020-07-29 08:42] LABS: TOT PROT 4.6 g/dl (6.4-8.2)
[2020-07-29] MEDS ORDERED: PT OWN MED DRAWER 7, Y5N ONE (10:05)
[2020-07-29] MEDS: ASPIRIN COATED 81 MG TABLET.EC PO SCH (10:11)
[2020-07-29] MEDS: SODIUM ZIRCONIUM CYCLOSILICATE (LOKELMA) 10 GM PACKET PO SCH (10:11)
[2020-07-29] MEDS: GABAPENTIN 300 MG CAPSULE PO SCH (10:11)
[2020-07-29] MEDS: PANTOPRAZOLE 40 MG TABLET PO SCH ×2 (10:12→21:19)
[2020-07-29] MEDS: CHOLECALCIFEROL (VIT D3) 1,000 UNIT (25 MCG) TABLET PO SCH (10:12)
[2020-07-29] MEDS: ASCORBIC ACID 500 MG TABLET (FP) PO SCH ×2 (10:12→21:19)
[2020-07-29] MEDS: BUDESONIDE/FORMETEROL FUMARATE 160/4.5 mcg INHALER IH SCH ×2 (10:13→21:20)
[2020-07-29] MEDS: NICOTINE 21 MG/24 HOURS TOPICAL PATCH TD SCH (10:14)
[2020-07-29] MEDS: MINERAL OIL/PET HY-PHL TOPICAL OINTMENT 454 GM JAR TP SCH (10:15)
[2020-07-29] MEDS: NYSTATIN 100,000 UNIT/GM TOPICAL CREAM 15 GM TUBE TP SCH ×2 (10:15→21:20)
[2020-07-29 11:13] LABS: ANISOCYTOSIS 1+; MACROCYTOSIS 1+; PLATELET ESTIMATE NORMAL
[2020-07-29] MEDS ORDERED: FUROSEMIDE 20 MG TABLET (FP) PO ONE (15:45)
[2020-07-29] MEDS: ATORVASTATIN CA 20 MG TABLET (FP) PO SCH (21:19)
[2020-07-30] MEDS: metroNIDAZOLE 250 MG TABLET PO SCH ×3 (05:34→21:42)
[2020-07-30] MEDS: MINERAL OIL/PET HY-PHL TOPICAL OINTMENT 454 GM JAR TP SCH (09:02)
[2020-07-30] MEDS: ASPIRIN COATED 81 MG TABLET.EC PO SCH (09:02)
[2020-07-30] MEDS: NYSTATIN 100,000 UNIT/GM TOPICAL CREAM 15 GM TUBE TP SCH ×2 (09:02→21:55)
[2020-07-30] MEDS: PANTOPRAZOLE 40 MG TABLET PO SCH ×2 (09:02→21:42)
[2020-07-30] MEDS: CHOLECALCIFEROL (VIT D3) 1,000 UNIT (25 MCG) TABLET PO SCH (09:02)
[2020-07-30] MEDS: GABAPENTIN 300 MG CAPSULE PO SCH (09:02)
[2020-07-30] MEDS: NICOTINE 21 MG/24 HOURS TOPICAL PATCH TD SCH (09:02)
[2020-07-30] MEDS: BUDESONIDE/FORMETEROL FUMARATE 160/4.5 mcg INHALER IH SCH ×2 (09:02→21:56)
[2020-07-30] MEDS: ASCORBIC ACID 500 MG TABLET (FP) PO SCH ×2 (09:02→21:42)
[2020-07-30 09:08] LABS: ALBUMIN 1.8 g/dl (3.4-5.0); BILIRUBIN,TOTAL 0.2 mg/dL (0.2-1); BLOOD UREA NITROGEN 16.3 mg/dL (7-18); CALCIUM 8.5 mg/dL (8.5-10.1); CREATININE 0.8 mg/dL (0.55-1.3); POTASSIUM 4.5 mmol/L (3.5-5.1)
[2020-07-30] MEDS: ATORVASTATIN CA 20 MG TABLET (FP) PO SCH (21:42)
[2020-07-30] MEDS ORDERED: HEPARIN NA (PORCINE) 5,000 UNITS/ML 1ML VIAL IVPUSH PRN ×2 (23:22)
[2020-07-31] MEDS: HEPARIN SOD,PORK IN 0.45% NACL 25,000 UNITS/500 ML INFUS.BAG IVPB SCH (00:56)
[2020-07-31] MEDS: metroNIDAZOLE 250 MG TABLET PO SCH ×3 (05:01→21:10)
[2020-07-31 08:11] LABS: BASO % 0.8 % (0-2.0); EOS % 0.4 % (0-4.5); HEMATOCRIT 31.2 % (32.4-45.2); HEMOGLOBIN 9.9 GM/dL (10.7-15.3); LYMPH % 10.5 % (8-40); MCHC 31.9 g/dl (32.0-36.0); MEAN CELL VOLUME 90.9 fl (80-96); MEAN PLT VOLUME 8.2 fl (7.5-11.1); NEUT % 82.3 % (42.8-82.8); PLATELET COUNT 407 K/MM3 (134-434); RBC 3.44 M/mm3 (3.60-5.2); RDW 18.7 % (11.6-15.6); WHITE BLOOD COUNT 20.9 K/mm3 (4.0-10.0)
[2020-07-31 08:45] LABS: ALBUMIN 1.8 g/dl (3.4-5.0); BILIRUBIN,TOTAL 0.5 mg/dL (0.2-1); BLOOD UREA NITROGEN 14.8 mg/dL (7-18); CALCIUM 8.8 mg/dL (8.5-10.1); CREATININE 0.7 mg/dL (0.55-1.3); POTASSIUM 4.4 mmol/L (3.5-5.1); TOT PROT 5.5 g/dl (6.4-8.2)
[2020-07-31] MEDS: CHOLECALCIFEROL (VIT D3) 1,000 UNIT (25 MCG) TABLET PO SCH (09:34)
[2020-07-31] MEDS: ASCORBIC ACID 500 MG TABLET (FP) PO SCH ×2 (09:34→21:10)
[2020-07-31] MEDS: ASPIRIN COATED 81 MG TABLET.EC PO SCH (09:35)
[2020-07-31] MEDS: GABAPENTIN 300 MG CAPSULE PO SCH (09:35)
[2020-07-31] MEDS: MINERAL OIL/PET HY-PHL TOPICAL OINTMENT 454 GM JAR TP SCH (09:36)
[2020-07-31] MEDS: NYSTATIN 100,000 UNIT/GM TOPICAL CREAM 15 GM TUBE TP SCH ×2 (09:37→21:11)
[2020-07-31] MEDS: BUDESONIDE/FORMETEROL FUMARATE 160/4.5 mcg INHALER IH SCH ×2 (09:37→21:11)
[2020-07-31] MEDS: PANTOPRAZOLE 40 MG TABLET PO SCH ×2 (09:38→21:10)
[2020-07-31] MEDS: NICOTINE 21 MG/24 HOURS TOPICAL PATCH TD SCH (09:39)
[2020-07-31 09:47] LABS: ANISOCYTOSIS 2+; MACROCYTOSIS 1+; OVALOCYTE 1+; PLATELET ESTIMATE NORMAL
[2020-07-31] MEDS ORDERED: POLYETHYLENE GLYCOL 3350 119 GM BTL PO ONE (11:00)
[2020-07-31] MEDS: ATORVASTATIN CA 20 MG TABLET (FP) PO SCH (21:10)
[2020-08-01] MEDS: metroNIDAZOLE 250 MG TABLET PO SCH ×3 (05:06→21:23)
[2020-08-01] MEDS: HEPARIN SOD,PORK IN 0.45% NACL 25,000 UNITS/500 ML INFUS.BAG IVPB SCH (05:07)
[2020-08-01 08:30] LABS: EOS % 0.7 % (0-4.5); HEMATOCRIT 29.5 % (32.4-45.2); HEMOGLOBIN 9.7 GM/dL (10.7-15.3); LYMPH % 12.8 % (8-40); MCH 29.8 pg (25.7-33.7); MEAN CELL VOLUME 90.4 fl (80-96); MEAN PLT VOLUME 7.9 fl (7.5-11.1); MONO % 7.3 % (3.8-10.2); NEUT % 78.2 % (42.8-82.8); PLATELET COUNT 412 K/MM3 (134-434); RBC 3.26 M/mm3 (3.60-5.2); RDW 18.7 % (11.6-15.6); WHITE BLOOD COUNT 16.6 K/mm3 (4.0-10.0)
[2020-08-01 08:40] LABS: POTASSIUM 4.6 mmol/L (3.5-5.1)
[2020-08-01 08:47] LABS: ALBUMIN 1.8 g/dl (3.4-5.0); BLOOD UREA NITROGEN 11.4 mg/dL (7-18); CREATININE 0.7 mg/dL (0.55-1.3)
[2020-08-01 08:48] LABS: BILIRUBIN,TOTAL 0.3 mg/dL (0.2-1); TOT PROT 4.8 g/dl (6.4-8.2)
[2020-08-01 08:49] LABS: CALCIUM 8.2 mg/dL (8.5-10.1)
[2020-08-01] MEDS: MINERAL OIL/PET HY-PHL TOPICAL OINTMENT 454 GM JAR TP SCH (09:46)
[2020-08-01] MEDS: ASPIRIN COATED 81 MG TABLET.EC PO SCH (09:47)
[2020-08-01] MEDS: NYSTATIN 100,000 UNIT/GM TOPICAL CREAM 15 GM TUBE TP SCH ×2 (09:47→21:23)
[2020-08-01] MEDS: NICOTINE 21 MG/24 HOURS TOPICAL PATCH TD SCH (09:47)
[2020-08-01] MEDS: ASCORBIC ACID 500 MG TABLET (FP) PO SCH ×2 (09:47→21:23)
[2020-08-01] MEDS: GABAPENTIN 300 MG CAPSULE PO SCH (09:47)
[2020-08-01] MEDS: PANTOPRAZOLE 40 MG TABLET PO SCH ×2 (09:49→21:23)
[2020-08-01] MEDS: CHOLECALCIFEROL (VIT D3) 1,000 UNIT (25 MCG) TABLET PO SCH (09:49)
[2020-08-01] MEDS: BUDESONIDE/FORMETEROL FUMARATE 160/4.5 mcg INHALER IH SCH ×2 (09:55→21:23)
[2020-08-01 11:24] LABS: ANISOCYTOSIS 2+; MACROCYTOSIS 2+; PLATELET ESTIMATE NORMAL
[2020-08-01] MEDS ORDERED: AZTREONAM 1 GM VIAL (RESTRICTED TO ID) ONE ×2 (12:21→16:00)
[2020-08-01] MEDS ORDERED: DEXTROSE 5%-WATER - 50 ML IVPB ONE ×2 (12:21→16:00)
[2020-08-01] MEDS: AZTREONAM 1 GM in DEXTROSE 5%-WATER - 50 ML IVPB SCH ×2 (12:29→17:01)
[2020-08-01] MEDS: MELATONIN 5 MG TABLETS PO PRN (21:23)
[2020-08-01] MEDS: ATORVASTATIN CA 20 MG TABLET (FP) PO SCH (21:23)
[2020-08-02] MEDS ORDERED: AZTREONAM 1 GM VIAL (RESTRICTED TO ID) ONE ×3 (02:43→16:57)
[2020-08-02] MEDS ORDERED: DEXTROSE 5%-WATER - 50 ML IVPB ONE ×3 (02:44→16:57)
[2020-08-02] MEDS: AZTREONAM 1 GM in DEXTROSE 5%-WATER - 50 ML IVPB SCH ×3 (02:45→17:23)
[2020-08-02] MEDS ORDERED: ACETAMINOPHEN 325 MG TABLET (FP) ONE (05:21)
[2020-08-02] MEDS: metroNIDAZOLE 250 MG TABLET PO SCH ×3 (06:39→21:35)
[2020-08-02 08:51] LABS: HEMATOCRIT 29.7 % (32.4-45.2); HEMOGLOBIN 9.5 GM/dL (10.7-15.3); MCH 29.3 pg (25.7-33.7); MCHC 32.2 g/dl (32.0-36.0); MEAN CELL VOLUME 91.1 fl (80-96); MEAN PLT VOLUME 8.3 fl (7.5-11.1); PLATELET COUNT 399 K/MM3 (134-434); RBC 3.26 M/mm3 (3.60-5.2); RDW 18.8 % (11.6-15.6); WHITE BLOOD COUNT 13.6 K/mm3 (4.0-10.0)
[2020-08-02] MEDS ORDERED: PT OWN MED DRAWER 7, Y5N ONE (09:58)
[2020-08-02] MEDS: BUDESONIDE/FORMETEROL FUMARATE 160/4.5 mcg INHALER IH SCH ×2 (10:02→21:39)
[2020-08-02] MEDS: NICOTINE 21 MG/24 HOURS TOPICAL PATCH TD SCH (10:03)
[2020-08-02] MEDS: NYSTATIN 100,000 UNIT/GM TOPICAL CREAM 15 GM TUBE TP SCH ×2 (10:03→21:39)
[2020-08-02] MEDS: MINERAL OIL/PET HY-PHL TOPICAL OINTMENT 454 GM JAR TP SCH (10:03)
[2020-08-02] MEDS: GABAPENTIN 300 MG CAPSULE PO SCH (13:50)
[2020-08-02] MEDS: ASPIRIN COATED 81 MG TABLET.EC PO SCH (13:50)
[2020-08-02] MEDS: CHOLECALCIFEROL (VIT D3) 1,000 UNIT (25 MCG) TABLET PO SCH (13:51)
[2020-08-02] MEDS: ASCORBIC ACID 500 MG TABLET (FP) PO SCH ×2 (13:51→22:59)
[2020-08-02] MEDS: PANTOPRAZOLE 40 MG TABLET PO SCH ×2 (13:51→21:36)
[2020-08-02] MEDS: ATORVASTATIN CA 20 MG TABLET (FP) PO SCH (21:35)
[2020-08-03] MEDS ORDERED: AZTREONAM 1 GM VIAL (RESTRICTED TO ID) ONE ×3 (00:26→16:50)
[2020-08-03] MEDS ORDERED: DEXTROSE 5%-WATER - 50 ML IVPB ONE ×3 (00:26→16:50)
[2020-08-03] MEDS: AZTREONAM 1 GM in DEXTROSE 5%-WATER - 50 ML IVPB SCH ×3 (01:23→17:01)
[2020-08-03] MEDS: metroNIDAZOLE 250 MG TABLET PO SCH ×3 (05:15→21:37)
[2020-08-03 07:52] LABS: BASO % 0.9 % (0-2.0); EOS % 1.2 % (0-4.5); HEMATOCRIT 31.6 % (32.4-45.2); HEMOGLOBIN 10.1 GM/dL (10.7-15.3); LYMPH % 11.1 % (8-40); MCH 29.5 pg (25.7-33.7); MCHC 32.1 g/dl (32.0-36.0); MEAN CELL VOLUME 92.1 fl (80-96); MEAN PLT VOLUME 8.1 fl (7.5-11.1); NEUT % 77.8 % (42.8-82.8); PLATELET COUNT 391 K/MM3 (134-434); RBC 3.43 M/mm3 (3.60-5.2); RDW 18.4 % (11.6-15.6); WHITE BLOOD COUNT 14.3 K/mm3 (4.0-10.0)
[2020-08-03 08:12] LABS: POTASSIUM 4.9 mmol/L (3.5-5.1)
[2020-08-03 08:19] LABS: ALBUMIN 1.8 g/dl (3.4-5.0); BLOOD UREA NITROGEN 11.5 mg/dL (7-18); CALCIUM 8.7 mg/dL (8.5-10.1)
[2020-08-03 08:21] LABS: BILIRUBIN,TOTAL 0.3 mg/dL (0.2-1)
[2020-08-03 08:22] LABS: CREATININE 0.7 mg/dL (0.55-1.3)
[2020-08-03] MEDS ORDERED: LIDOCAINE HCL 1%, 10 MG/ML (20ML VIAL) ONE (08:52)
[2020-08-03] MEDS ORDERED: BUPIVACAINE HCL/PF 0.25% (2.5MG/ML) 10 ML VIAL ONE (08:52)
[2020-08-03 09:29] LABS: ANISOCYTOSIS 1+; MACROCYTOSIS 0; PLATELET ESTIMATE NORMAL
[2020-08-03] MEDS: GABAPENTIN 300 MG CAPSULE PO SCH (10:33)
[2020-08-03] MEDS: ASPIRIN COATED 81 MG TABLET.EC PO SCH (10:33)
[2020-08-03] MEDS: PANTOPRAZOLE 40 MG TABLET PO SCH ×2 (10:33→21:37)
[2020-08-03] MEDS: CHOLECALCIFEROL (VIT D3) 1,000 UNIT (25 MCG) TABLET PO SCH (10:33)
[2020-08-03] MEDS: ASCORBIC ACID 500 MG TABLET (FP) PO SCH ×2 (10:34→21:37)
[2020-08-03] MEDS: NYSTATIN 100,000 UNIT/GM TOPICAL CREAM 15 GM TUBE TP SCH ×2 (10:34→21:39)
[2020-08-03] MEDS: MINERAL OIL/PET HY-PHL TOPICAL OINTMENT 454 GM JAR TP SCH (10:34)
[2020-08-03] MEDS: NICOTINE 21 MG/24 HOURS TOPICAL PATCH TD SCH (10:34)
[2020-08-03] MEDS: BUDESONIDE/FORMETEROL FUMARATE 160/4.5 mcg INHALER IH SCH ×2 (10:34→21:41)
[2020-08-03] MEDS ORDERED: ENOXAPARIN NA (PORCINE) 80 MG/0.8 ML DISP.SYRIN SQ ONE (11:55)
[2020-08-03] MEDS: FUROSEMIDE 40 MG TABLET (FP) PO SCH (16:53)
[2020-08-03] MEDS: ATORVASTATIN CA 20 MG TABLET (FP) PO SCH (21:37)
[2020-08-04] MEDS ORDERED: AZTREONAM 1 GM VIAL (RESTRICTED TO ID) ONE ×3 (00:48→17:36)
[2020-08-04] MEDS ORDERED: DEXTROSE 5%-WATER - 50 ML IVPB ONE ×3 (00:49→17:36)
[2020-08-04] MEDS: AZTREONAM 1 GM in DEXTROSE 5%-WATER - 50 ML IVPB SCH ×3 (02:30→17:40)
[2020-08-04] MEDS: metroNIDAZOLE 250 MG TABLET PO SCH ×3 (06:15→21:37)
[2020-08-04 08:51] LABS: HEMATOCRIT 29.1 % (32.4-45.2); HEMOGLOBIN 9.7 GM/dL (10.7-15.3); MCH 30.3 pg (25.7-33.7); MCHC 33.3 g/dl (32.0-36.0); MEAN CELL VOLUME 91.2 fl (80-96); MEAN PLT VOLUME 8.1 fl (7.5-11.1); PLATELET COUNT 350 K/MM3 (134-434); RBC 3.19 M/mm3 (3.60-5.2); RDW 18.9 % (11.6-15.6); WHITE BLOOD COUNT 11.7 K/mm3 (4.0-10.0)
[2020-08-04] MEDS: ASPIRIN COATED 81 MG TABLET.EC PO SCH (10:11)
[2020-08-04] MEDS: CHOLECALCIFEROL (VIT D3) 1,000 UNIT (25 MCG) TABLET PO SCH (10:12)
[2020-08-04] MEDS: GABAPENTIN 300 MG CAPSULE PO SCH (10:12)
[2020-08-04] MEDS: PANTOPRAZOLE 40 MG TABLET PO SCH ×2 (10:12→21:37)
[2020-08-04] MEDS: FUROSEMIDE 40 MG TABLET (FP) PO SCH (10:12)
[2020-08-04] MEDS: ASCORBIC ACID 500 MG TABLET (FP) PO SCH ×2 (10:12→21:37)
[2020-08-04] MEDS: BUDESONIDE/FORMETEROL FUMARATE 160/4.5 mcg INHALER IH SCH ×2 (10:13→21:41)
[2020-08-04] MEDS: NICOTINE 21 MG/24 HOURS TOPICAL PATCH TD SCH (10:14)
[2020-08-04] MEDS: NYSTATIN 100,000 UNIT/GM TOPICAL CREAM 15 GM TUBE TP SCH ×2 (10:14→21:39)
[2020-08-04] MEDS: MINERAL OIL/PET HY-PHL TOPICAL OINTMENT 454 GM JAR TP SCH (10:14)
[2020-08-04 11:45] VITALS: BMI 32.8
[2020-08-04] MEDS: ENOXAPARIN NA (PORCINE) 80 MG/0.8 ML DISP.SYRIN SQ SCH (21:37)
[2020-08-04] MEDS: ATORVASTATIN CA 20 MG TABLET (FP) PO SCH (21:37)
[2020-08-04] MEDS: MELATONIN 5 MG TABLETS PO PRN (22:36)
[2020-08-05] MEDS: AZTREONAM 1 GM in DEXTROSE 5%-WATER - 50 ML IVPB SCH ×3 (01:28→17:46)
[2020-08-05] MEDS: metroNIDAZOLE 250 MG TABLET PO SCH ×3 (05:45→21:43)
[2020-08-05 08:52] LABS: HEMOGLOBIN 9.6 GM/dL (10.7-15.3); MCH 29.4 pg (25.7-33.7); MCHC 32.2 g/dl (32.0-36.0); MEAN CELL VOLUME 91.4 fl (80-96); MEAN PLT VOLUME 8.3 fl (7.5-11.1); PLATELET COUNT 356 K/MM3 (134-434); RBC 3.28 M/mm3 (3.60-5.2); WHITE BLOOD COUNT 11.2 K/mm3 (4.0-10.0)
[2020-08-05 09:26] LABS: POTASSIUM 4.6 mmol/L (3.5-5.1)
[2020-08-05 09:29] LABS: BLOOD UREA NITROGEN 10.3 mg/dL (7-18); CALCIUM 8.7 mg/dL (8.5-10.1)
[2020-08-05] MEDS ORDERED: AZTREONAM 1 GM VIAL (RESTRICTED TO ID) ONE ×2 (09:29→17:35)
[2020-08-05] MEDS ORDERED: DEXTROSE 5%-WATER - 50 ML IVPB ONE ×2 (09:30→17:35)
[2020-08-05 09:33] LABS: CREATININE 0.7 mg/dL (0.55-1.3)
[2020-08-05 09:34] LABS: BILIRUBIN,TOTAL 0.3 mg/dL (0.2-1)
[2020-08-05 09:37] LABS: ALBUMIN 0.9 g/dl (3.4-5.0)
[2020-08-05] MEDS: ASCORBIC ACID 500 MG TABLET (FP) PO SCH ×2 (09:39→21:43)
[2020-08-05] MEDS: MINERAL OIL/PET HY-PHL TOPICAL OINTMENT 454 GM JAR TP SCH (09:39)
[2020-08-05] MEDS: ENOXAPARIN NA (PORCINE) 80 MG/0.8 ML DISP.SYRIN SQ SCH ×2 (09:39→21:43)
[2020-08-05] MEDS: GABAPENTIN 300 MG CAPSULE PO SCH (09:39)
[2020-08-05] MEDS: ASPIRIN COATED 81 MG TABLET.EC PO SCH (09:39)
[2020-08-05] MEDS: CHOLECALCIFEROL (VIT D3) 1,000 UNIT (25 MCG) TABLET PO SCH (09:39)
[2020-08-05] MEDS: NYSTATIN 100,000 UNIT/GM TOPICAL CREAM 15 GM TUBE TP SCH ×2 (09:41→21:44)
[2020-08-05] MEDS: FUROSEMIDE 20 MG TABLET (FP) PO SCH (09:42)
[2020-08-05] MEDS: NICOTINE 21 MG/24 HOURS TOPICAL PATCH TD SCH (09:42)
[2020-08-05] MEDS: BUDESONIDE/FORMETEROL FUMARATE 160/4.5 mcg INHALER IH SCH ×2 (09:42→21:45)
[2020-08-05] MEDS: PANTOPRAZOLE 40 MG TABLET PO SCH ×2 (10:51→21:43)
[2020-08-05] MEDS: ATORVASTATIN CA 20 MG TABLET (FP) PO SCH (21:43)
[2020-08-06] MEDS ORDERED: DEXTROSE 5%-WATER - 50 ML IVPB ONE ×3 (00:48→17:05)
[2020-08-06] MEDS ORDERED: AZTREONAM 1 GM VIAL (RESTRICTED TO ID) ONE ×3 (00:48→17:05)
[2020-08-06] MEDS: AZTREONAM 1 GM in DEXTROSE 5%-WATER - 50 ML IVPB SCH ×3 (01:39→17:07)
[2020-08-06] MEDS: metroNIDAZOLE 250 MG TABLET PO SCH ×3 (05:29→21:17)
[2020-08-06] MEDS: ENOXAPARIN NA (PORCINE) 80 MG/0.8 ML DISP.SYRIN SQ SCH ×2 (09:26→21:17)
[2020-08-06] MEDS: MINERAL OIL/PET HY-PHL TOPICAL OINTMENT 454 GM JAR TP SCH (09:26)
[2020-08-06] MEDS: FUROSEMIDE 20 MG TABLET (FP) PO SCH (09:28)
[2020-08-06] MEDS: CHOLECALCIFEROL (VIT D3) 1,000 UNIT (25 MCG) TABLET PO SCH (09:28)
[2020-08-06] MEDS: NICOTINE 21 MG/24 HOURS TOPICAL PATCH TD SCH (09:28)
[2020-08-06] MEDS: PANTOPRAZOLE 40 MG TABLET PO SCH ×2 (09:28→21:17)
[2020-08-06] MEDS: ASCORBIC ACID 500 MG TABLET (FP) PO SCH ×2 (09:28→21:18)
[2020-08-06] MEDS: ASPIRIN COATED 81 MG TABLET.EC PO SCH (09:29)
[2020-08-06] MEDS: NYSTATIN 100,000 UNIT/GM TOPICAL CREAM 15 GM TUBE TP SCH ×2 (09:29→21:18)
[2020-08-06] MEDS: GABAPENTIN 300 MG CAPSULE PO SCH (09:29)
[2020-08-06] MEDS: BUDESONIDE/FORMETEROL FUMARATE 160/4.5 mcg INHALER IH SCH ×2 (09:29→21:18)
[2020-08-06 09:32] LABS: BASO % 1.3 % (0-2.0); EOS % 2.7 % (0-4.5); HEMATOCRIT 30.1 % (32.4-45.2); HEMOGLOBIN 9.6 GM/dL (10.7-15.3); LYMPH % 20.4 % (8-40); MCH 29.3 pg (25.7-33.7); MCHC 31.8 g/dl (32.0-36.0); MEAN CELL VOLUME 92.1 fl (80-96); MEAN PLT VOLUME 8.5 fl (7.5-11.1); MONO % 9.9 % (3.8-10.2); NEUT % 65.7 % (42.8-82.8); PLATELET COUNT 327 K/MM3 (134-434); RBC 3.26 M/mm3 (3.60-5.2); RDW 18.8 % (11.6-15.6)
[2020-08-06 10:24] LABS: CALCIUM 8.5 mg/dL (8.5-10.1)
[2020-08-06 10:25] LABS: BLOOD UREA NITROGEN 10.2 mg/dL (7-18)
[2020-08-06 10:28] LABS: CREATININE 0.6 mg/dL (0.55-1.3)
[2020-08-06 10:29] LABS: BILIRUBIN,TOTAL 0.4 mg/dL (0.2-1)
[2020-08-06 10:46] LABS: ALBUMIN 1.8 g/dl (3.4-5.0)
[2020-08-06 11:28] LABS: ANISOCYTOSIS 0; HELMET CELLS 0; HOWELL-JOLLY BODIES 0; MACROCYTOSIS 0; OVALOCYTE 0; PLATELET ESTIMATE NORMAL; ROULEAU 0; SICKELED CELLS 0; TARGET CELLS 0; TEAR DROP CELLS 0; TOXIC GRANULATION 0
[2020-08-06] MEDS: ATORVASTATIN CA 20 MG TABLET (FP) PO SCH (21:18)
[2020-08-07] MEDS: ASCORBIC ACID 500 MG TABLET (FP) PO SCH ×3 (00:15→21:35)
[2020-08-07] MEDS ORDERED: AZTREONAM 1 GM VIAL (RESTRICTED TO ID) ONE ×3 (01:34→15:40)
[2020-08-07] MEDS ORDERED: DEXTROSE 5%-WATER - 50 ML IVPB ONE ×3 (01:35→15:41)
[2020-08-07] MEDS: AZTREONAM 1 GM in DEXTROSE 5%-WATER - 50 ML IVPB SCH ×3 (01:56→17:32)
[2020-08-07] MEDS: metroNIDAZOLE 250 MG TABLET PO SCH ×3 (06:06→21:35)
[2020-08-07 08:41] LABS: BASO % 1.2 % (0-2.0); EOS % 3.6 % (0-4.5); HEMATOCRIT 29.6 % (32.4-45.2); HEMOGLOBIN 9.9 GM/dL (10.7-15.3); LYMPH % 22.4 % (8-40); MCH 30.2 pg (25.7-33.7); MCHC 33.3 g/dl (32.0-36.0); MEAN CELL VOLUME 90.7 fl (80-96); MEAN PLT VOLUME 8.2 fl (7.5-11.1); MONO % 10.8 % (3.8-10.2); PLATELET COUNT 304 K/MM3 (134-434); RBC 3.26 M/mm3 (3.60-5.2); RDW 18.8 % (11.6-15.6); WHITE BLOOD COUNT 10.6 K/mm3 (4.0-10.0)
[2020-08-07 09:32] LABS: ANISOCYTOSIS 1+; MACROCYTOSIS 0; PLATELET ESTIMATE NORMAL
[2020-08-07] MEDS: ENOXAPARIN NA (PORCINE) 80 MG/0.8 ML DISP.SYRIN SQ SCH ×2 (10:05→21:30)
[2020-08-07] MEDS: NICOTINE 21 MG/24 HOURS TOPICAL PATCH TD SCH (10:05)
[2020-08-07] MEDS: ASPIRIN COATED 81 MG TABLET.EC PO SCH (10:05)
[2020-08-07] MEDS: FUROSEMIDE 20 MG TABLET (FP) PO SCH (10:05)
[2020-08-07] MEDS: GABAPENTIN 300 MG CAPSULE PO SCH (10:05)
[2020-08-07 10:06] LABS: ALBUMIN 1.9 g/dl (3.4-5.0); BILIRUBIN,TOTAL 0.3 mg/dL (0.2-1); BLOOD UREA NITROGEN 10.6 mg/dL (7-18); CALCIUM 8.3 mg/dL (8.5-10.1); CREATININE 0.7 mg/dL (0.55-1.3); POTASSIUM 4.1 mmol/L (3.5-5.1); TOT PROT 5.1 g/dl (6.4-8.2)
[2020-08-07] MEDS: PANTOPRAZOLE 40 MG TABLET PO SCH ×2 (10:06→21:35)
[2020-08-07] MEDS: CHOLECALCIFEROL (VIT D3) 1,000 UNIT (25 MCG) TABLET PO SCH (10:06)
[2020-08-07] MEDS: BUDESONIDE/FORMETEROL FUMARATE 160/4.5 mcg INHALER IH SCH ×2 (10:15→21:36)
[2020-08-07] MEDS: MINERAL OIL/PET HY-PHL TOPICAL OINTMENT 454 GM JAR TP SCH (10:51)
[2020-08-07] MEDS: NYSTATIN 100,000 UNIT/GM TOPICAL CREAM 15 GM TUBE TP SCH ×2 (10:51→21:36)
[2020-08-07] MEDS: ATORVASTATIN CA 20 MG TABLET (FP) PO SCH (21:35)
[2020-08-08] MEDS ORDERED: AZTREONAM 1 GM VIAL (RESTRICTED TO ID) ONE ×3 (01:11→17:41)
[2020-08-08] MEDS ORDERED: DEXTROSE 5%-WATER - 50 ML IVPB ONE ×3 (01:11→17:42)
[2020-08-08] MEDS: AZTREONAM 1 GM in DEXTROSE 5%-WATER - 50 ML IVPB SCH ×3 (01:17→17:43)
[2020-08-08] MEDS: metroNIDAZOLE 250 MG TABLET PO SCH ×3 (05:49→21:29)
[2020-08-08] MEDS ORDERED: BUPIVACAINE HCL/PF 0.25% (2.5MG/ML) 10 ML VIAL ONE (07:17)
[2020-08-08] MEDS ORDERED: LIDOCAINE HCL 1%, 10 MG/ML (20ML VIAL) ONE (07:17)
[2020-08-08] MEDS ORDERED: PROPOFOL 20 ML ONE (08:13)
[2020-08-08] MEDS ORDERED: MIDAZOLAM HCL 2 MG/2 ML SINGLE DOSE VIAL ONE ×2 (08:15→08:26)
[2020-08-08] MEDS ORDERED: BENZOIN/ALOE VERA/STORAX/TOLU 58 ML BOTTLE ONE (08:28)
[2020-08-08 08:35] LABS: EOS % 3.7 % (0-4.5); HEMATOCRIT 29.8 % (32.4-45.2); HEMOGLOBIN 9.9 GM/dL (10.7-15.3); LYMPH % 20.9 % (8-40); MCH 30.3 pg (25.7-33.7); MCHC 33.3 g/dl (32.0-36.0); MEAN PLT VOLUME 8.3 fl (7.5-11.1); MONO % 10.3 % (3.8-10.2); NEUT % 64.1 % (42.8-82.8); PLATELET COUNT 288 K/MM3 (134-434); RBC 3.27 M/mm3 (3.60-5.2); WHITE BLOOD COUNT 9.8 K/mm3 (4.0-10.0)
[2020-08-08] MEDS ORDERED: LIDOCAINE HCL 1%, 10 MG/ML (20ML VIAL) INF ONE (08:39)
[2020-08-08 08:50] LABS: POTASSIUM 4.1 mmol/L (3.5-5.1)
[2020-08-08 08:57] LABS: CALCIUM 8.6 mg/dL (8.5-10.1)
[2020-08-08 08:58] LABS: ALBUMIN 1.8 g/dl (3.4-5.0); BLOOD UREA NITROGEN 9.7 mg/dL (7-18)
[2020-08-08 09:01] LABS: CREATININE 0.7 mg/dL (0.55-1.3)
[2020-08-08 09:02] LABS: BILIRUBIN,TOTAL 0.8 mg/dL (0.2-1)
[2020-08-08] MEDS ORDERED: oxyCODONE HCL 5 MG TABLET PO PRN (09:12)
[2020-08-08] MEDS ORDERED: PROMETHAZINE HCL 25 MG/1 ML VIAL IVPUSH PRN (09:12)
[2020-08-08] MEDS ORDERED: ONDANSETRON 4 MG/2 ML VIAL IVPUSH PRN (09:12)
[2020-08-08] MEDS: CHOLECALCIFEROL (VIT D3) 1,000 UNIT (25 MCG) TABLET PO SCH (10:44)
[2020-08-08] MEDS: PANTOPRAZOLE 40 MG TABLET PO SCH ×2 (10:48→21:29)
[2020-08-08] MEDS: GABAPENTIN 300 MG CAPSULE PO SCH (10:48)
[2020-08-08] MEDS: NICOTINE 21 MG/24 HOURS TOPICAL PATCH TD SCH (10:49)
[2020-08-08] MEDS: ASPIRIN COATED 81 MG TABLET.EC PO SCH (10:49)
[2020-08-08] MEDS: ASCORBIC ACID 500 MG TABLET (FP) PO SCH ×2 (10:49→21:29)
[2020-08-08] MEDS: FUROSEMIDE 20 MG TABLET (FP) PO SCH (11:10)
[2020-08-08] MEDS: MINERAL OIL/PET HY-PHL TOPICAL OINTMENT 454 GM JAR TP SCH (11:18)
[2020-08-08] MEDS: NYSTATIN 100,000 UNIT/GM TOPICAL CREAM 15 GM TUBE TP SCH ×2 (12:15→21:29)
[2020-08-08] MEDS: BUDESONIDE/FORMETEROL FUMARATE 160/4.5 mcg INHALER IH SCH ×2 (12:18→21:30)
[2020-08-08] MEDS: ATORVASTATIN CA 20 MG TABLET (FP) PO SCH (21:29)
[2020-08-09] MEDS ORDERED: DEXTROSE 5%-WATER - 50 ML IVPB ONE ×2 (00:30→09:52)
[2020-08-09] MEDS ORDERED: AZTREONAM 1 GM VIAL (RESTRICTED TO ID) ONE ×2 (00:30→09:51)
[2020-08-09] MEDS: AZTREONAM 1 GM in DEXTROSE 5%-WATER - 50 ML IVPB SCH (02:30)
[2020-08-09] MEDS: metroNIDAZOLE 250 MG TABLET PO SCH ×3 (06:25→21:09)
[2020-08-09 08:01] LABS: BASO % 1.1 % (0-2.0); EOS % 4.2 % (0-4.5); HEMATOCRIT 28.9 % (32.4-45.2); HEMOGLOBIN 9.5 GM/dL (10.7-15.3); LYMPH % 20.2 % (8-40); MCH 30.1 pg (25.7-33.7); MCHC 32.9 g/dl (32.0-36.0); MEAN CELL VOLUME 91.4 fl (80-96); MEAN PLT VOLUME 8.2 fl (7.5-11.1); MONO % 9.6 % (3.8-10.2); NEUT % 64.9 % (42.8-82.8); PLATELET COUNT 261 K/MM3 (134-434); RBC 3.16 M/mm3 (3.60-5.2); RDW 18.9 % (11.6-15.6); WHITE BLOOD COUNT 9.8 K/mm3 (4.0-10.0)
[2020-08-09 08:13] LABS: POTASSIUM 4.2 mmol/L (3.5-5.1)
[2020-08-09 08:15] LABS: ALBUMIN 1.7 g/dl (3.4-5.0); BLOOD UREA NITROGEN 9.7 mg/dL (7-18); CALCIUM 8.4 mg/dL (8.5-10.1)
[2020-08-09 08:25] LABS: CREATININE 0.6 mg/dL (0.55-1.3)
[2020-08-09] MEDS ORDERED: oxyCODONE HCL 5 MG TABLET PO PRN (08:25)
[2020-08-09] MEDS ORDERED: PROMETHAZINE HCL 25 MG/1 ML VIAL IVPUSH PRN (08:25)
[2020-08-09] MEDS ORDERED: ONDANSETRON 4 MG/2 ML VIAL IVPUSH PRN (08:25)
[2020-08-09 08:26] LABS: BILIRUBIN,TOTAL 0.3 mg/dL (0.2-1)
[2020-08-09 08:27] LABS: TOT PROT 4.7 g/dl (6.4-8.2)
[2020-08-09] MEDS ORDERED: PT OWN MED DRAWER 7, Y5N ONE (09:53)
[2020-08-09] MEDS ORDERED: NICOTINE 21 MG/24 HOURS TOPICAL PATCH TD SCH (10:00)
[2020-08-09] MEDS ORDERED: GABAPENTIN 300 MG CAPSULE PO SCH (10:00)
[2020-08-09] MEDS ORDERED: ASPIRIN COATED 81 MG TABLET.EC PO SCH (10:00)
[2020-08-09] MEDS ORDERED: FUROSEMIDE 20 MG TABLET (FP) PO SCH (10:00)
[2020-08-09] MEDS ORDERED: CHOLECALCIFEROL (VIT D3) 1,000 UNIT (25 MCG) TABLET PO SCH (10:00)
[2020-08-09] MEDS ORDERED: ENOXAPARIN NA (PORCINE) 80 MG/0.8 ML DISP.SYRIN SQ SCH (10:00)
[2020-08-09] MEDS ORDERED: AZTREONAM 1 GM in DEXTROSE 5%-WATER - 50 ML IVPB SCH (10:00)
[2020-08-09] MEDS ORDERED: MINERAL OIL/PET HY-PHL TOPICAL OINTMENT 454 GM JAR TP SCH (10:00)
[2020-08-09] MEDS: PANTOPRAZOLE 40 MG TABLET PO SCH ×2 (10:08→21:09)
[2020-08-09] MEDS: ASCORBIC ACID 500 MG TABLET (FP) PO SCH ×3 (10:08→21:09)
[2020-08-09] MEDS: NYSTATIN 100,000 UNIT/GM TOPICAL CREAM 15 GM TUBE TP SCH ×2 (10:08→21:16)
[2020-08-09] MEDS: BUDESONIDE/FORMETEROL FUMARATE 160/4.5 mcg INHALER IH SCH ×3 (10:10→21:15)
[2020-08-09 16:05] VITALS: BP 103/31; PULSE 71; TEMP 98.4
[2020-08-09] MEDS ORDERED: APIXABAN 5 MG TABLET PO SCH (22:00)
[2020-08-09] MEDS ORDERED: MELATONIN 5 MG TABLETS PO PRN (22:00)
[2020-08-09] MEDS ORDERED: ATORVASTATIN CA 20 MG TABLET (FP) PO SCH (22:00)
== END 2020-08-09 22:58 | DRG 987 ==
LOC: JER 18:26 → JERBED 20:34 → J8W 07-05 13:29
PROVIDERS: ADMIT Internal Medicine; ATTEND Internal Medicine
PROC: 30233N1 Transfusion of Nonautologous Red Blood Cells into Peripheral Vein, Percutaneous Approach (ICD-10-PCS; 2020-07-13)
PROC: 0DBP8ZX Excision of Rectum, Via Natural or Artificial Opening Endoscopic, Diagnostic (ICD-10-PCS; 2020-07-18)
PROC: 0DBP8ZX Excision of Rectum, Via Natural or Artificial Opening Endoscopic, Diagnostic (ICD-10-PCS; 2020-07-18)
PROC: 0DB68ZX Excision of Stomach, Via Natural or Artificial Opening Endoscopic, Diagnostic (ICD-10-PCS; 2020-07-18)
PROC: 0DBK8ZX Excision of Ascending Colon, Via Natural or Artificial Opening Endoscopic, Diagnostic (ICD-10-PCS; principal; 2020-07-18 08:00)
PROC: 0TBB8ZZ Excision of Bladder, Via Natural or Artificial Opening Endoscopic (ICD-10-PCS; 2020-07-27)
PROC: 0T5B8ZZ Destruction of Bladder, Via Natural or Artificial Opening Endoscopic (ICD-10-PCS; 2020-07-27)
PROC: 0JPT0PZ Removal of Cardiac Rhythm Related Device from Trunk Subcutaneous Tissue and Fascia, Open Approach (ICD-10-PCS; 2020-08-08)
PROC: 0JH606Z Insertion of Pacemaker, Dual Chamber into Chest Subcutaneous Tissue and Fascia, Open Approach (ICD-10-PCS; 2020-08-08)
DX: D64.9 Anemia, unspecified (principal); U07.1 COVID-19; A41.89 Other specified sepsis; K62.6 Ulcer of anus and rectum; E87.2 Acidosis; N17.9 Acute kidney failure, unspecified; N39.0 Urinary tract infection, site not specified; I82.4Z1 Acute embolism and thrombosis of unspecified deep veins of right distal lower extremity; I25.10 Atherosclerotic heart disease of native coronary artery without angina pectoris; E78.5 Hyperlipidemia, unspecified; I25.2 Old myocardial infarction; I11.0 Hypertensive heart disease with heart failure; I50.9 Heart failure, unspecified; R79.89 Other specified abnormal findings of blood chemistry; R53.1 Weakness; R19.5 Other fecal abnormalities; K59.09 Other constipation; K57.90 Diverticulosis of intestine, part unspecified, without perforation or abscess without bleeding; K22.2 Esophageal obstruction; K44.9 Diaphragmatic hernia without obstruction or gangrene; E66.9 Obesity, unspecified; Z68.32 Body mass index [BMI] 32.0-32.9, adult; F41.9 Anxiety disorder, unspecified; R10.31 Right lower quadrant pain; E11.42 Type 2 diabetes mellitus with diabetic polyneuropathy; R33.8 Other retention of urine; D49.4 Neoplasm of unspecified behavior of bladder; N32.9 Bladder disorder, unspecified; E87.5 Hyperkalemia; B96.20 Unspecified Escherichia coli [E. coli] as the cause of diseases classified elsewhere; Z45.010 Encounter for checking and testing of cardiac pacemaker pulse generator [battery]
CPT/HCPCS: 36415; 36430; 70450-TC; 71045-TC-FY; 72125-TC; 74177-TC; 76775-TC; 76856-TC; 80048; 80053; 80061; 81003; 82248; 82272; 82550; 82728; 82803; 83036; 83540; 83550; 83605; 83615; 83721; 83880; 84443; 84484; 85025; 85027; 85379; 85610; 85730; 86140; 86769; 86850; 86900; 86901; 86922; 87040; 87086; 87186; 87804; 88300-TC; 88305-TC; 93005; 93010; 93306-TC; 93970-TC; 94760; 97116-GP; 97162-GP; 99285-25; C9803; J1644; J1756; P9058; Q9967; U0003

== ENCOUNTER 2020-11-01 04:35 | Day surgery (SDC) | payer OTHER, BC ==
[2020-10-31 11:36] VITALS: BMI 31.3
[2020-11-01] MEDS ORDERED: MIDAZOLAM HCL 2 MG/2 ML SINGLE DOSE VIAL ONE (09:39)
[2020-11-01] MEDS ORDERED: SEVOFLURANE 250 ML BTL ONE (09:40)
[2020-11-01] MEDS ORDERED: PROPOFOL 20 ML ONE (09:40)
[2020-11-01] MEDS ORDERED: ceFAZolin SODIUM 1 GM VIAL ONE (10:38)
[2020-11-01] MEDS ORDERED: DEXAMETHASONE SOD PHOSPHATE 4 MG/1 ML VIAL ONE (10:38)
[2020-11-01] MEDS ORDERED: ceFAZolin 2 GRAM PREMIX BAG IVPB ONE (10:40)
[2020-11-01] MEDS ORDERED: oxyCODONE HCL 5 MG TABLET PO PRN ×2 (11:05)
[2020-11-01] MEDS ORDERED: ONDANSETRON 4 MG/2 ML VIAL IVPUSH PRN (11:05)
[2020-11-01] MEDS ORDERED: LACTATED RINGERS SOLUTION 1,000 ML IV SCH (11:15)
[2020-11-01 14:41] VITALS: BP 136/63; PULSE 84; TEMP 97.6
== END 2020-11-01 13:50 | disposition home or self-care (01) ==
LOC: JASU-SURG 04:35
PROVIDERS: ATTEND Urology
PROC: 0T5B8ZZ Destruction of Bladder, Via Natural or Artificial Opening Endoscopic (ICD-10-PCS; principal; 2020-11-01 10:42)
DX: D49.4 Neoplasm of unspecified behavior of bladder (principal); E11.9 Type 2 diabetes mellitus without complications; I10 Essential (primary) hypertension; D64.9 Anemia, unspecified
CPT/HCPCS: 87086; 87186; 88305-TC; 94760

== ENCOUNTER 2021-03-29 19:41 | Inpatient (IN) | payer OTHER, BC ==
[2021-03-29] MEDS ORDERED: DIPHTH,PERTUSS(ACELL),TET 0.5 ML DISP.SYRIN IM ONE ×2 (21:05→22:07)
[2021-03-29 21:48] LABS: BASO % 0.5 % (0-2.0); EOS % 0.8 % (0-4.5); HEMATOCRIT 36.4 % (32.4-45.2); HEMOGLOBIN 11.8 GM/dL (10.7-15.3); LYMPH % 27.5 % (8-40); MCH 27.7 pg (25.7-33.7); MCHC 32.4 g/dl (32.0-36.0); MEAN CELL VOLUME 85.3 fl (80-96); MEAN PLT VOLUME 8.1 fl (7.5-11.1); MONO % 9.4 % (3.8-10.2); NEUT % 61.8 % (42.8-82.8); PLATELET COUNT 228 10^3/uL (134-434); RBC 4.26 M/mm3 (3.60-5.2); RDW 15.4 % (11.6-15.6)
[2021-03-29] MEDS ORDERED: BACITRACIN 0.9 GM PACKET ONE (21:57)
[2021-03-29 22:11] LABS: CHLORIDE 102 mmol/L (98-107); SODIUM 137 mmol/L (136-145)
[2021-03-29 22:13] LABS: ANION GAP 9 MMOL/L (8-16); BLOOD UREA NITROGEN 32.4 mg/dL (7-18); CALCIUM 9.4 mg/dL (8.5-10.1); CO2 26 mmol/L (21-32); GLUCOSE,RANDOM 98 mg/dL (74-106)
[2021-03-29] MEDS: BACITRACIN 15 GM TUBE TOPICAL OINTMENT TP SCH (22:13)
[2021-03-29 22:14] LABS: ALBUMIN 3.2 g/dl (3.4-5.0)
[2021-03-29 22:17] LABS: CREATININE 1.5 mg/dL (0.55-1.3); SGOT/AST 14 U/L (15-37); SGPT/ALT 14 U/L (13-61)
[2021-03-29 22:19] LABS: BILIRUBIN,TOTAL 0.4 mg/dL (0.2-1)
[2021-03-29 22:20] LABS: ALK PHOS 140 U/L (45-117)
[2021-03-29] MEDS ORDERED: SODIUM CHLORIDE 0.9% 500 ML INFUS.BAG IV ONE (22:36)
[2021-03-30 00:11] LABS: CALCIUM 8.7 mg/dL (8.5-10.1)
[2021-03-30 00:12] LABS: BLOOD UREA NITROGEN 30.6 mg/dL (7-18)
[2021-03-30 00:15] LABS: CREATININE 1.4 mg/dL (0.55-1.3)
[2021-03-30 00:52] LABS: EPI CELLS 31 /uL (0-25.1); HYALINE CASTS 0 /uL (0-3.1); URINE APPEARANCE CLEAR; URINE BACTERIA 86 /uL (0-1359); URINE BILIRUBIN NEGATIVE (NEGATIVE); URINE COLOR YELLOW; URINE GLUCOSE (UA) NEGATIVE (NEGATIVE); URINE KETONE NEGATIVE (NEGATIVE); URINE LEUK ESTERASE TRACE (NEGATIVE); URINE NITRITE NEGATIVE (NEGATIVE); URINE PROTEIN NEGATIVE (NEGATIVE); URINE RBC 5 /uL (0-23.9); URINE UROBILINOGEN 0.2 mg/dL (0.2-1.0); URINE WBC 27 /uL (0-25.8)
[2021-03-30] MEDS ORDERED: DEXTROSE 5%-0.45% SALINE 1,000 ML IV SCH (03:00)
[2021-03-30 03:11] VITALS: BMI 29.1
[2021-03-30] MEDS ORDERED: FUROSEMIDE 20 MG TABLET (FP) PO SCH (07:00)
[2021-03-30] MEDS: PANTOPRAZOLE 40 MG TABLET PO SCH (09:51)
[2021-03-30] MEDS: BACITRACIN 15 GM TUBE TOPICAL OINTMENT TP SCH ×2 (09:51→21:29)
[2021-03-30] MEDS: APIXABAN 5 MG TABLET PO SCH ×2 (09:51→21:29)
[2021-03-30] MEDS: ASPIRIN COATED 81 MG TABLET.EC PO SCH (09:51)
[2021-03-30] MEDS: GABAPENTIN 300 MG CAPSULE PO SCH (09:51)
[2021-03-30] MEDS ORDERED: SODIUM CHLORIDE 0.45% 1,000 ML IV SCH (16:45)
[2021-03-30] MEDS ORDERED: MIRTAZAPINE 15 MG TABLET (FP) PO SCH (22:00)
[2021-03-30] MEDS ORDERED: FUROSEMIDE 40 MG TABLET (FP) PO SCH (22:00)
[2021-03-30] MEDS ORDERED: MELATONIN 5 MG TABLETS PO ONE (22:30)
[2021-03-31 08:45] LABS: BASO % 1.1 % (0-2.0); HEMATOCRIT 33.2 % (32.4-45.2); LYMPH % 41.4 % (8-40); MCH 27.9 pg (25.7-33.7); MCHC 33.2 g/dl (32.0-36.0); MEAN CELL VOLUME 83.9 fl (80-96); MEAN PLT VOLUME 7.7 fl (7.5-11.1); MONO % 7.8 % (3.8-10.2); NEUT % 44.7 % (42.8-82.8); PLATELET COUNT 204 10^3/uL (134-434); RBC 3.96 M/mm3 (3.60-5.2); RDW 15.3 % (11.6-15.6); WHITE BLOOD COUNT 7.3 K/mm3 (4.0-10.0)
[2021-03-31 09:05] LABS: ALBUMIN 2.8 g/dl (3.4-5.0); CALCIUM 8.9 mg/dL (8.5-10.1)
[2021-03-31 09:06] LABS: BLOOD UREA NITROGEN 20.4 mg/dL (7-18)
[2021-03-31 09:10] LABS: BILIRUBIN,TOTAL 0.4 mg/dL (0.2-1); CREATININE 1.1 mg/dL (0.55-1.3)
[2021-03-31] MEDS: APIXABAN 5 MG TABLET PO SCH (09:37)
[2021-03-31] MEDS: GABAPENTIN 300 MG CAPSULE PO SCH (09:37)
[2021-03-31] MEDS: BACITRACIN 15 GM TUBE TOPICAL OINTMENT TP SCH (09:37)
[2021-03-31] MEDS: PANTOPRAZOLE 40 MG TABLET PO SCH (09:37)
[2021-03-31] MEDS: ASPIRIN COATED 81 MG TABLET.EC PO SCH (09:37)
[2021-03-31] MEDS ORDERED: PT OWN MED DRAWER 7, Y5N ONE (10:12)
[2021-03-31] MEDS ORDERED: SODIUM CHLORIDE 0.45% 1,000 ML IV SCH (13:23)
[2021-03-31 17:20] VITALS: BP 135/54; PULSE 78; TEMP 98
== END 2021-03-31 18:00 | disposition home or self-care (01) | DRG 683 ==
LOC: JER 19:41 → JERBED 23:13 → J8W 03-30 02:41 → OBSVTOIN 03-30 02:47
PROVIDERS: ADMIT Internal Medicine; ATTEND Internal Medicine
DX: N17.9 Acute kidney failure, unspecified (principal); I44.2 Atrioventricular block, complete; N39.0 Urinary tract infection, site not specified; I25.10 Atherosclerotic heart disease of native coronary artery without angina pectoris; D64.9 Anemia, unspecified; I25.2 Old myocardial infarction; I11.0 Hypertensive heart disease with heart failure; I50.9 Heart failure, unspecified; E11.9 Type 2 diabetes mellitus without complications; D49.4 Neoplasm of unspecified behavior of bladder; Z95.0 Presence of cardiac pacemaker; W07.XXXA Fall from chair, initial encounter; Y92.098 Other place in other non-institutional residence as the place of occurrence of the external cause; Z86.73 Personal history of transient ischemic attack (TIA), and cerebral infarction without residual deficits; Z86.718 Personal history of other venous thrombosis and embolism
CPT/HCPCS: 36415; 70450-TC; 71045-TC-FY; 73110-TC-LT-FY; 73130-TC-LT-FY; 76775-TC; 80048; 80053; 81003; 82436; 82550; 82570; 84133; 84300; 84484; 85025; 87077; 87086; 87186; 90715; 93005; 93010; 97116-GP; 97161-GP; 99285-25; C9803; G0378; U0003; U0005

== ENCOUNTER 2021-08-17 18:04 | Emergency (ER) | payer OTHER, BC ==
[2021-08-17 18:20] VITALS: TEMP 97.7; BMI 30.8
[2021-08-17] MEDS ORDERED: ACETAMINOPHEN 500 MG TABLET (FP) PO ONE (20:18)
[2021-08-17] MEDS ORDERED: ACETAMINOPHEN 325 MG TABLET (FP) ONE (20:22)
[2021-08-17 22:40] VITALS: BP 104/48; PULSE 84
== END 2021-08-17 22:40 | disposition home or self-care (01) ==
LOC: JER 18:04
DX: M25.551 Pain in right hip (principal)
CPT/HCPCS: 72170-TC-FY; 72192-TC; 73502-TC-RT-FY; 99285-25

== ENCOUNTER 2021-10-13 05:02 | Inpatient (IN) | payer OTHER, BC ==
[2021-10-13] MEDS ORDERED: LACTATED RINGERS SOLUTION 1000 ML INFUS.BAG IV ONE ×2 (05:38→21:32)
[2021-10-13] MEDS ORDERED: VANCOMYCIN 1 GM in D5W (PRE-DOCKED) 1,000 MG/250 ML IVPB ONE (06:19)
[2021-10-13 06:24] LABS: BASO % 0.2 % (0-2.0); HEMATOCRIT 11.3 % (32.4-45.2); LYMPH % 12.5 % (8-40); MCHC 28.2 g/dl (32.0-36.0); MEAN CELL VOLUME 64.1 fl (80-96); MEAN PLT VOLUME 8.6 fl (7.5-11.1); MONO % 6.2 % (3.8-10.2); NEUT % 81.1 % (42.8-82.8); PLATELET COUNT 342 10^3/uL (134-434); RBC 1.77 M/mm3 (3.60-5.2); WHITE BLOOD COUNT 11.6 K/mm3 (4.0-10.0)
[2021-10-13] MEDS ORDERED: CEFEPIME HCL/D5W 1 GM/50 ML BAG IVPB ONE (06:36)
[2021-10-13] MEDS ORDERED: VANCOMYCIN 1 GRAM (PRE-DOCKED) 1,000 MG/250 ML BAG IVPB ONE (06:39)
[2021-10-13 06:42] LABS: MCH 18.1 pg (25.7-33.7)
[2021-10-13 06:43] LABS: HEMOGLOBIN 3.2 GM/dL (10.7-15.3)
[2021-10-13 06:45] LABS: CALCIUM 9.1 mg/dL (8.5-10.1)
[2021-10-13] MEDS ORDERED: NOREPINEPHRINE D5W PREMIX 16,000 MCG/500 ML BAG IVPB SCH (06:45)
[2021-10-13 06:46] LABS: ALBUMIN 2.8 g/dl (3.4-5.0); BLOOD UREA NITROGEN 47.2 mg/dL (7-18)
[2021-10-13 06:48] LABS: CREATININE 1.7 mg/dL (0.55-1.3)
[2021-10-13 06:50] LABS: BILIRUBIN,TOTAL 0.3 mg/dL (0.2-1)
[2021-10-13 06:54] LABS: N-TERMINAL BNP 4673.9 pg/ml (5-450)
[2021-10-13 06:56] LABS: VENOUS BASE EXCESS -0.3 mmol/L (-2-2); VENOUS PCO2 53.7 mmHg (38-52); VENOUS PH 7.299 (7.310-7.410)
[2021-10-13 07:08] LABS: URINE APPEARANCE CLEAR; URINE BILIRUBIN NEGATIVE (NEGATIVE); URINE COLOR YELLOW; URINE GLUCOSE (UA) NEGATIVE (NEGATIVE); URINE KETONE NEGATIVE (NEGATIVE); URINE LEUK ESTERASE TRACE (NEGATIVE); URINE NITRITE NEGATIVE (NEGATIVE); URINE PROTEIN NEGATIVE (NEGATIVE); URINE UROBILINOGEN 0.2 mg/dL (0.2-1.0)
[2021-10-13 07:15] LABS: INR 2.94 (0.83-1.09); PROTHROMBIN TIME (PATIENT) 34.2 SEC (9.7-13.0)
[2021-10-13 07:17] LABS: ACTIVATED PTT 32.2 SECONDS (25.2-36.5)
[2021-10-13] MEDS ORDERED: PANTOPRAZOLE SODIUM 40 MG VIAL IVPUSH ONE (07:26)
[2021-10-13 07:30] LABS: LACTIC ACID 5.3 mmol/L (0.4-2.0)
[2021-10-13] MEDS ORDERED: PANTOPRAZOLE SODIUM 80 MG in SODIUM CHLORIDE 100 ML IVPB SCH (07:30)
[2021-10-13] MEDS ORDERED: HUM PROTHROMBIN CPLX(PCC)4FACT 1,000 UNIT/40 ML VIAL IVPB ONE (07:39)
[2021-10-13] MEDS ORDERED: PANTOPRAZOLE SODIUM 40 MG VIAL ONE (07:43)
[2021-10-13] MEDS ORDERED: HUM PROTHROMBIN CPLX(PCC)4FACT 1,000 UNIT/40 ML VIAL IV ONE (07:43)
[2021-10-13] MEDS ORDERED: PANTOPRAZOLE SODIUM 160 MG in SODIUM CHLORIDE 290 ML IVPB SCH (07:45)
[2021-10-13 09:28] LABS: LACTIC ACID 2.2 mmol/L (0.4-2.0)
[2021-10-13 10:14] LABS: EPI CELLS 12.4 /uL (0-25.1); HYALINE CASTS 2.05 /uL (0-3.1); URINE RBC 9.1 /uL (0-23.9); URINE WBC 21.7 /uL (0-25.8)
[2021-10-13 11:05] LABS: ANISOCYTOSIS 1+; MACROCYTOSIS 0; PLATELET ESTIMATE NORMAL
[2021-10-13] MEDS: MUPIROCIN 2% TOPICAL OINTMENT FOR DECOLONIZATION NS SCH ×2 (13:07→22:37)
[2021-10-13] MEDS ORDERED: DEXTROSE 5%-WATER - 50 ML IVPB ONE (13:09)
[2021-10-13] MEDS ORDERED: CEFEPIME HCL 1 GM VIAL (RESTRICTED TO ID) ONE (13:09)
[2021-10-13] MEDS ORDERED: CEFEPIME 1 GM in DEXTROSE 5%-WATER - 1 GM/50 ML IVPB IVPB ONE (13:15)
[2021-10-13 17:33] LABS: HEMATOCRIT 16.8 % (32.4-45.2); MCH 24.2 pg (25.7-33.7); MCHC 31.8 g/dl (32.0-36.0); MEAN CELL VOLUME 75.9 fl (80-96); MEAN PLT VOLUME 7.9 fl (7.5-11.1); PLATELET COUNT 201 10^3/uL (134-434); RBC 2.21 M/mm3 (3.60-5.2); RDW 26.1 % (11.6-15.6); WHITE BLOOD COUNT 15.7 K/mm3 (4.0-10.0)
[2021-10-13 17:55] LABS: HEMOGLOBIN 5.3 GM/dL (10.7-15.3)
[2021-10-13] MEDS: PANTOPRAZOLE SODIUM 40 MG VIAL IVPUSH SCH (22:37)
[2021-10-13] MEDS: CHLORHEXIDINE GLUCONATE 4% CLEANSER FOR DECOLONIZATION TP SCH (22:37)
[2021-10-14 01:15] LABS: BASO % 0.4 % (0-2.0); EOS % 0.4 % (0-4.5); HEMATOCRIT 21.6 % (32.4-45.2); LYMPH % 9.3 % (8-40); MCHC 32.4 g/dl (32.0-36.0); MEAN CELL VOLUME 77.1 fl (80-96); MEAN PLT VOLUME 8.1 fl (7.5-11.1); MONO % 8.6 % (3.8-10.2); NEUT % 81.3 % (42.8-82.8); PLATELET COUNT 200 10^3/uL (134-434); RDW 22.8 % (11.6-15.6); WHITE BLOOD COUNT 13.4 K/mm3 (4.0-10.0)
[2021-10-14 07:34] LABS: HEMATOCRIT 21.2 % (32.4-45.2); MCH 25.2 pg (25.7-33.7); MCHC 32.6 g/dl (32.0-36.0); MEAN PLT VOLUME 8.2 fl (7.5-11.1); PLATELET COUNT 196 10^3/uL (134-434); RBC 2.75 M/mm3 (3.60-5.2); RDW 23.2 % (11.6-15.6); WHITE BLOOD COUNT 12.8 K/mm3 (4.0-10.0)
[2021-10-14 07:37] LABS: HEMOGLOBIN 6.9 GM/dL (10.7-15.3)
[2021-10-14 07:55] LABS: BLOOD UREA NITROGEN 31.9 mg/dL (7-18)
[2021-10-14 07:57] LABS: CALCIUM 8.5 mg/dL (8.5-10.1); PHOSPHOROUS 3.4 mg/dL (2.5-4.9)
[2021-10-14 07:58] LABS: MAGNESIUM 2.4 mg/dL (1.8-2.4)
[2021-10-14] MEDS: MUPIROCIN 2% TOPICAL OINTMENT FOR DECOLONIZATION NS SCH ×2 (09:53→21:15)
[2021-10-14] MEDS: PANTOPRAZOLE SODIUM 40 MG VIAL IVPUSH SCH ×2 (09:53→21:15)
[2021-10-14] MEDS ORDERED: SODIUM CHLORIDE 500 ML IV STA (21:03)
[2021-10-14] MEDS: CHLORHEXIDINE GLUCONATE 4% CLEANSER FOR DECOLONIZATION TP SCH (21:15)
[2021-10-14] MEDS: POLYETHYLENE GLYCOL (HEALTHYLAX) 3350 17 GM PACKET PO SCH (21:15)
[2021-10-14 21:57] LABS: HEMATOCRIT 24.5 % (32.4-45.2); MCH 26.1 pg (25.7-33.7); MCHC 32.6 g/dl (32.0-36.0); MEAN CELL VOLUME 80.3 fl (80-96); PLATELET COUNT 179 10^3/uL (134-434); RBC 3.06 M/mm3 (3.60-5.2); RDW 23.6 % (11.6-15.6); WHITE BLOOD COUNT 11.8 K/mm3 (4.0-10.0)
[2021-10-15 06:56] LABS: BASO % 0.7 % (0-2.0); EOS % 2.6 % (0-4.5); HEMATOCRIT 24.2 % (32.4-45.2); HEMOGLOBIN 7.9 GM/dL (10.7-15.3); LYMPH % 22.2 % (8-40); MCH 26.3 pg (25.7-33.7); MCHC 32.7 g/dl (32.0-36.0); MEAN CELL VOLUME 80.6 fl (80-96); MEAN PLT VOLUME 8.4 fl (7.5-11.1); NEUT % 65.5 % (42.8-82.8); PLATELET COUNT 175 10^3/uL (134-434); RDW 23.8 % (11.6-15.6); WHITE BLOOD COUNT 11.5 K/mm3 (4.0-10.0)
[2021-10-15 07:17] LABS: CALCIUM 8.2 mg/dL (8.5-10.1)
[2021-10-15 07:18] LABS: ALBUMIN 2.4 g/dl (3.4-5.0); BLOOD UREA NITROGEN 24.4 mg/dL (7-18); MAGNESIUM 2.4 mg/dL (1.8-2.4)
[2021-10-15 07:21] LABS: BILIRUBIN,TOTAL 0.9 mg/dL (0.2-1); CREATININE 0.9 mg/dL (0.55-1.3); PHOSPHOROUS 2.4 mg/dL (2.5-4.9); TOT PROT 5.2 g/dl (6.4-8.2)
[2021-10-15] MEDS: POLYETHYLENE GLYCOL (HEALTHYLAX) 3350 17 GM PACKET PO SCH ×2 (09:17→21:17)
[2021-10-15] MEDS: MUPIROCIN 2% TOPICAL OINTMENT FOR DECOLONIZATION NS SCH ×2 (09:17→21:17)
[2021-10-15] MEDS: PANTOPRAZOLE SODIUM 40 MG VIAL IVPUSH SCH ×2 (09:42→21:17)
[2021-10-15] MEDS: CHLORHEXIDINE GLUCONATE 4% CLEANSER FOR DECOLONIZATION TP SCH (21:17)
[2021-10-16 07:22] LABS: BASO % 0.7 % (0-2.0); EOS % 2.9 % (0-4.5); HEMATOCRIT 24.5 % (32.4-45.2); LYMPH % 24.1 % (8-40); MCH 26.9 pg (25.7-33.7); MCHC 32.8 g/dl (32.0-36.0); MEAN CELL VOLUME 82.1 fl (80-96); MEAN PLT VOLUME 8.3 fl (7.5-11.1); MONO % 8.9 % (3.8-10.2); NEUT % 63.4 % (42.8-82.8); PLATELET COUNT 177 10^3/uL (134-434); RBC 2.98 M/mm3 (3.60-5.2); RDW 24.8 % (11.6-15.6); WHITE BLOOD COUNT 8.5 K/mm3 (4.0-10.0)
[2021-10-16 07:34] LABS: CALCIUM 8.3 mg/dL (8.5-10.1)
[2021-10-16 07:35] LABS: ALBUMIN 2.5 g/dl (3.4-5.0); BLOOD UREA NITROGEN 19.4 mg/dL (7-18); MAGNESIUM 2.3 mg/dL (1.8-2.4)
[2021-10-16 07:38] LABS: PHOSPHOROUS 2.7 mg/dL (2.5-4.9)
[2021-10-16 07:39] LABS: BILIRUBIN,TOTAL 1.2 mg/dL (0.2-1)
[2021-10-16 07:40] LABS: TOT PROT 5.2 g/dl (6.4-8.2)
[2021-10-16 08:03] LABS: CREATININE 0.9 mg/dL (0.55-1.3)
[2021-10-16 09:06] LABS: ANISOCYTOSIS 2+; MACROCYTOSIS 2+; OVALOCYTE 1+; TARGET CELLS 1+; TEAR DROP CELLS 1+
[2021-10-16] MEDS: POLYETHYLENE GLYCOL (HEALTHYLAX) 3350 17 GM PACKET PO SCH ×2 (10:34→21:32)
[2021-10-16] MEDS: PANTOPRAZOLE SODIUM 40 MG VIAL IVPUSH SCH ×2 (10:35→21:32)
[2021-10-16] MEDS: MUPIROCIN 2% TOPICAL OINTMENT FOR DECOLONIZATION NS SCH ×2 (10:36→21:32)
[2021-10-16] MEDS: CHLORHEXIDINE GLUCONATE 4% CLEANSER FOR DECOLONIZATION TP SCH (21:33)
[2021-10-17 07:56] LABS: BASO % 0.9 % (0-2.0); EOS % 3.4 % (0-4.5); HEMATOCRIT 25.2 % (32.4-45.2); LYMPH % 26.8 % (8-40); MCH 26.5 pg (25.7-33.7); MCHC 31.7 g/dl (32.0-36.0); MEAN CELL VOLUME 83.6 fl (80-96); MEAN PLT VOLUME 8.6 fl (7.5-11.1); MONO % 9.5 % (3.8-10.2); NEUT % 59.4 % (42.8-82.8); PLATELET COUNT 179 10^3/uL (134-434); RBC 3.02 M/mm3 (3.60-5.2); WHITE BLOOD COUNT 7.5 K/mm3 (4.0-10.0)
[2021-10-17 08:10] LABS: ALBUMIN 2.4 g/dl (3.4-5.0); BLOOD UREA NITROGEN 13.1 mg/dL (7-18); CALCIUM 8.2 mg/dL (8.5-10.1)
[2021-10-17 08:13] LABS: CREATININE 0.8 mg/dL (0.55-1.3)
[2021-10-17 08:15] LABS: BILIRUBIN,TOTAL 0.7 mg/dL (0.2-1); TOT PROT 5.2 g/dl (6.4-8.2)
[2021-10-17] MEDS: PANTOPRAZOLE SODIUM 40 MG VIAL IVPUSH SCH ×2 (09:43→21:27)
[2021-10-17] MEDS: POLYETHYLENE GLYCOL (HEALTHYLAX) 3350 17 GM PACKET PO SCH ×2 (09:43→21:27)
[2021-10-17] MEDS: MUPIROCIN 2% TOPICAL OINTMENT FOR DECOLONIZATION NS SCH ×2 (09:44→21:27)
[2021-10-17] MEDS: CHLORHEXIDINE GLUCONATE 4% CLEANSER FOR DECOLONIZATION TP SCH (21:27)
[2021-10-18] MEDS: PANTOPRAZOLE SODIUM 40 MG VIAL IVPUSH SCH ×2 (10:35→21:18)
[2021-10-18] MEDS: POLYETHYLENE GLYCOL (HEALTHYLAX) 3350 17 GM PACKET PO SCH ×2 (10:35→21:18)
[2021-10-18 14:41] VITALS: BMI 29.6
[2021-10-18] MEDS: CHLORHEXIDINE GLUCONATE 4% CLEANSER FOR DECOLONIZATION TP SCH (21:18)
[2021-10-19 07:34] LABS: BASO % 1.3 % (0-2.0); EOS % 3.3 % (0-4.5); HEMATOCRIT 26.9 % (32.4-45.2); HEMOGLOBIN 8.8 GM/dL (10.7-15.3); LYMPH % 21.1 % (8-40); MCH 26.9 pg (25.7-33.7); MCHC 32.6 g/dl (32.0-36.0); MEAN CELL VOLUME 82.4 fl (80-96); MONO % 8.6 % (3.8-10.2); NEUT % 65.7 % (42.8-82.8); PLATELET COUNT 171 10^3/uL (134-434); RBC 3.27 M/mm3 (3.60-5.2); WHITE BLOOD COUNT 7.2 K/mm3 (4.0-10.0)
[2021-10-19 08:01] LABS: ALBUMIN 2.4 g/dl (3.4-5.0); BLOOD UREA NITROGEN 9.3 mg/dL (7-18); CALCIUM 8.8 mg/dL (8.5-10.1)
[2021-10-19 08:04] LABS: CREATININE 0.7 mg/dL (0.55-1.3)
[2021-10-19 08:06] LABS: BILIRUBIN,TOTAL 0.7 mg/dL (0.2-1); TOT PROT 5.2 g/dl (6.4-8.2)
[2021-10-19 09:11] LABS: ANISOCYTOSIS 2+; MACROCYTOSIS 0
[2021-10-19] MEDS: PANTOPRAZOLE SODIUM 40 MG VIAL IVPUSH SCH ×2 (09:11→21:53)
[2021-10-19] MEDS: POLYETHYLENE GLYCOL (HEALTHYLAX) 3350 17 GM PACKET PO SCH ×2 (09:12→21:53)
[2021-10-19] MEDS: CHLORHEXIDINE GLUCONATE 4% CLEANSER FOR DECOLONIZATION TP SCH (21:53)
[2021-10-20 09:14] LABS: BASO % 0.9 % (0-2.0); EOS % 3.4 % (0-4.5); HEMATOCRIT 26.6 % (32.4-45.2); HEMOGLOBIN 8.5 GM/dL (10.7-15.3); LYMPH % 24.6 % (8-40); MCH 26.3 pg (25.7-33.7); MCHC 31.9 g/dl (32.0-36.0); MEAN CELL VOLUME 82.3 fl (80-96); MEAN PLT VOLUME 8.2 fl (7.5-11.1); MONO % 10.5 % (3.8-10.2); NEUT % 60.6 % (42.8-82.8); PLATELET COUNT 176 10^3/uL (134-434); RBC 3.24 M/mm3 (3.60-5.2); RDW 25.6 % (11.6-15.6); WHITE BLOOD COUNT 6.5 K/mm3 (4.0-10.0)
[2021-10-20 09:39] LABS: ALBUMIN 2.5 g/dl (3.4-5.0); BLOOD UREA NITROGEN 7.9 mg/dL (7-18)
[2021-10-20 09:42] LABS: CREATININE 0.8 mg/dL (0.55-1.3)
[2021-10-20 09:44] LABS: BILIRUBIN,TOTAL 0.6 mg/dL (0.2-1); TOT PROT 5.3 g/dl (6.4-8.2)
[2021-10-20] MEDS: PANTOPRAZOLE SODIUM 40 MG VIAL IVPUSH SCH ×2 (11:00→22:58)
[2021-10-20] MEDS: FUROSEMIDE 20 MG TABLET (FP) PO SCH (11:00)
[2021-10-20] MEDS: POLYETHYLENE GLYCOL (HEALTHYLAX) 3350 17 GM PACKET PO SCH ×2 (11:03→22:58)
[2021-10-20] MEDS ORDERED: CHLORHEXIDINE GLUCONATE 4% CLEANSER FOR DECOLONIZATION TP SCH (22:00)
[2021-10-21 07:46] LABS: CALCIUM 8.6 mg/dL (8.5-10.1)
[2021-10-21 07:47] LABS: ALBUMIN 2.5 g/dl (3.4-5.0); BLOOD UREA NITROGEN 6.9 mg/dL (7-18)
[2021-10-21 07:49] LABS: CREATININE 0.9 mg/dL (0.55-1.3)
[2021-10-21 07:51] LABS: BILIRUBIN,TOTAL 0.6 mg/dL (0.2-1); TOT PROT 5.3 g/dl (6.4-8.2)
[2021-10-21] MEDS: POLYETHYLENE GLYCOL (HEALTHYLAX) 3350 17 GM PACKET PO SCH (10:19)
[2021-10-21] MEDS: PANTOPRAZOLE SODIUM 40 MG VIAL IVPUSH SCH (10:19)
[2021-10-21] MEDS: FUROSEMIDE 20 MG TABLET (FP) PO SCH (10:19)
[2021-10-21 15:45] VITALS: BP 113/36; PULSE 56; TEMP 98
== END 2021-10-21 17:20 | DRG 377 ==
LOC: JER 05:02 → JERBED 07:24 → JICU 09:59 → J4W 10-19 21:15
PROVIDERS: ADMIT Internal Medicine Pulmonary Disease; ATTEND Internal Medicine
PROC: 30233N1 Transfusion of Nonautologous Red Blood Cells into Peripheral Vein, Percutaneous Approach (ICD-10-PCS; principal; 2021-10-13)
PROC: 30233L1 Transfusion of Nonautologous Fresh Plasma into Peripheral Vein, Percutaneous Approach (ICD-10-PCS; 2021-10-13)
PROC: 30233K1 Transfusion of Nonautologous Frozen Plasma into Peripheral Vein, Percutaneous Approach (ICD-10-PCS; 2021-10-13)
DX: K92.2 Gastrointestinal hemorrhage, unspecified (principal); R57.1 Hypovolemic shock; E87.2 Acidosis; D62 Acute posthemorrhagic anemia; N17.9 Acute kidney failure, unspecified; N39.0 Urinary tract infection, site not specified; I11.0 Hypertensive heart disease with heart failure; E78.5 Hyperlipidemia, unspecified; I25.10 Atherosclerotic heart disease of native coronary artery without angina pectoris; K21.9 Gastro-esophageal reflux disease without esophagitis; B96.20 Unspecified Escherichia coli [E. coli] as the cause of diseases classified elsewhere; I50.9 Heart failure, unspecified
CPT/HCPCS: 36415; 36430; 36511; 70450-TC; 71045-TC-FY; 72125-TC; 74174-TC; 80048; 80053; 81003; 82272; 82553; 82803; 82962; 83605; 83690; 83735; 83880; 84100; 84484; 85025; 85027; 85610; 85730; 86850; 86900; 86901; 86922; 87040; 87086; 87186; 93005; 93010; 97116-GP; 97162-GP; 99285-25; C9803-CS; J7168; P9016; P9017; P9038; P9058; U0003; U0005

== ENCOUNTER 2022-01-27 16:42 | Inpatient (IN) | payer OTHER, BC ==
[2022-01-27 17:35] VITALS: BMI 30.8
[2022-01-27 18:04] LABS: VENOUS BASE EXCESS 1.2 mmol/L (-2-2); VENOUS O2 SATURATION 78.5 % (70-80); VENOUS PCO2 46.7 mmHg (38-52); VENOUS PH 7.376 (7.310-7.410)
[2022-01-27 18:05] LABS: BASO % 0.8 % (0-2.0); EOS % 1.5 % (0-4.5); HEMOGLOBIN 9.5 GM/dL (10.7-15.3); LYMPH % 35.7 % (8-40); MCH 22.7 pg (25.7-33.7); MCHC 31.9 g/dl (32.0-36.0); MEAN CELL VOLUME 71.4 fl (80-96); MEAN PLT VOLUME 7.3 fl (7.5-11.1); MONO % 9.1 % (3.8-10.2); NEUT % 52.9 % (42.8-82.8); PLATELET COUNT 313 10^3/uL (134-434); RDW 19.3 % (11.6-15.6); WHITE BLOOD COUNT 7.8 K/mm3 (4.0-10.0)
[2022-01-27 18:17] LABS: INR 1.04 (0.83-1.09)
[2022-01-27 18:27] LABS: BLOOD UREA NITROGEN 14.2 mg/dL (7-18); CALCIUM 9.2 mg/dL (8.5-10.1)
[2022-01-27 18:28] LABS: ALBUMIN 3.4 g/dl (3.4-5.0)
[2022-01-27 18:31] LABS: CREATININE 1.1 mg/dL (0.55-1.3)
[2022-01-27 18:32] LABS: BILIRUBIN,TOTAL 0.3 mg/dL (0.2-1); TOT PROT 6.9 g/dl (6.4-8.2)
[2022-01-28 08:15] LABS: BASO % 0.8 % (0-2.0); EOS % 2.5 % (0-4.5); HEMATOCRIT 29.4 % (32.4-45.2); HEMOGLOBIN 9.4 GM/dL (10.7-15.3); LYMPH % 38.5 % (8-40); MCH 23.2 pg (25.7-33.7); MEAN CELL VOLUME 72.4 fl (80-96); MEAN PLT VOLUME 7.4 fl (7.5-11.1); MONO % 7.3 % (3.8-10.2); NEUT % 50.9 % (42.8-82.8); PLATELET COUNT 291 10^3/uL (134-434); RBC 4.06 M/mm3 (3.60-5.2); WHITE BLOOD COUNT 7.4 K/mm3 (4.0-10.0)
[2022-01-28 08:44] LABS: BILIRUBIN,TOTAL 0.4 mg/dL (0.2-1); BLOOD UREA NITROGEN 14.7 mg/dL (7-18); CALCIUM 9.1 mg/dL (8.5-10.1); CREATININE 1.1 mg/dL (0.55-1.3); TOT PROT 6.3 g/dl (6.4-8.2)
[2022-01-28] MEDS: FUROSEMIDE 40 MG/4 ML INJECTABLE VIAL IVPUSH SCH (09:04)
[2022-01-28] MEDS: PANTOPRAZOLE 40 MG TABLET PO SCH (09:04)
[2022-01-28] MEDS: POLYETHYLENE GLYCOL (HEALTHYLAX) 3350 17 GM PACKET PO SCH (09:04)
[2022-01-28] MEDS: LOSARTAN POTASSIUM 50 MG TABLET PO SCH (09:04)
[2022-01-28] MEDS: HEPARIN NA (PORCINE) 5,000 UNITS/ML 1ML VIAL SQ SCH ×2 (09:04→21:37)
[2022-01-28] MEDS ORDERED: PANTOPRAZOLE 40 MG TABLET PO SCH (10:00)
[2022-01-28] MEDS ORDERED: ACETAMINOPHEN 325 MG TABLET (FP) PO PRN (14:00)
[2022-01-28] MEDS: MELATONIN 5 MG TABLETS PO SCH (21:37)
[2022-01-29 07:58] LABS: EOS % 3.1 % (0-4.5); HEMATOCRIT 31.2 % (32.4-45.2); HEMOGLOBIN 9.6 GM/dL (10.7-15.3); LYMPH % 44.4 % (8-40); MCH 22.1 pg (25.7-33.7); MCHC 30.6 g/dl (32.0-36.0); MEAN CELL VOLUME 72.3 fl (80-96); MEAN PLT VOLUME 7.9 fl (7.5-11.1); MONO % 9.3 % (3.8-10.2); NEUT % 42.2 % (42.8-82.8); PLATELET COUNT 306 10^3/uL (134-434); RBC 4.32 M/mm3 (3.60-5.2); RDW 18.9 % (11.6-15.6)
[2022-01-29 09:03] LABS: ALBUMIN 3.2 g/dl (3.4-5.0); BLOOD UREA NITROGEN 18.3 mg/dL (7-18); CALCIUM 9.5 mg/dL (8.5-10.1)
[2022-01-29 09:04] LABS: CREATININE 1.2 mg/dL (0.55-1.3)
[2022-01-29] MEDS: LOSARTAN POTASSIUM 50 MG TABLET PO SCH (09:05)
[2022-01-29] MEDS: PANTOPRAZOLE 40 MG TABLET PO SCH (09:05)
[2022-01-29] MEDS: POLYETHYLENE GLYCOL (HEALTHYLAX) 3350 17 GM PACKET PO SCH (09:05)
[2022-01-29] MEDS: HEPARIN NA (PORCINE) 5,000 UNITS/ML 1ML VIAL SQ SCH ×2 (09:05→21:35)
[2022-01-29] MEDS: FUROSEMIDE 40 MG/4 ML INJECTABLE VIAL IVPUSH SCH (09:05)
[2022-01-29 09:06] LABS: TOT PROT 6.6 g/dl (6.4-8.2)
[2022-01-29 09:07] LABS: BILIRUBIN,TOTAL 0.4 mg/dL (0.2-1)
[2022-01-29] MEDS: metoPROLOL SUCCINATE 25 MG TAB.SR.24H (FP) PO SCH (13:40)
[2022-01-29] MEDS: MELATONIN 5 MG TABLETS PO SCH (21:35)
[2022-01-30] MEDS: FUROSEMIDE 20 MG TABLET (FP) PO SCH (09:21)
[2022-01-30] MEDS: LOSARTAN POTASSIUM 50 MG TABLET PO SCH (09:21)
[2022-01-30] MEDS: metoPROLOL SUCCINATE 25 MG TAB.SR.24H (FP) PO SCH (09:21)
[2022-01-30] MEDS: HEPARIN NA (PORCINE) 5,000 UNITS/ML 1ML VIAL SQ SCH ×2 (09:21→21:02)
[2022-01-30] MEDS: PANTOPRAZOLE 40 MG TABLET PO SCH (09:21)
[2022-01-30] MEDS: POLYETHYLENE GLYCOL (HEALTHYLAX) 3350 17 GM PACKET PO SCH (09:21)
[2022-01-30 09:33] LABS: CHOLESTEROL 174 mg/dL (50-200); TRIGLYCERIDES 106 mg/dL (0-150)
[2022-01-30 09:34] LABS: LDL CHOLESTEROL (ONLY SJRH) 91 mg/dL (5-100)
[2022-01-30 09:36] LABS: HDL CHOLESTEROL 65 mg/dL (40-60)
[2022-01-30] MEDS: MELATONIN 5 MG TABLETS PO SCH (21:02)
[2022-01-31 06:05] VITALS: RESP 18
[2022-01-31] MEDS: FUROSEMIDE 20 MG TABLET (FP) PO SCH (09:34)
[2022-01-31] MEDS: PANTOPRAZOLE 40 MG TABLET PO SCH (09:34)
[2022-01-31] MEDS: HEPARIN NA (PORCINE) 5,000 UNITS/ML 1ML VIAL SQ SCH (09:34)
[2022-01-31] MEDS: metoPROLOL SUCCINATE 25 MG TAB.SR.24H (FP) PO SCH (09:34)
[2022-01-31] MEDS: LOSARTAN POTASSIUM 50 MG TABLET PO SCH (09:34)
[2022-01-31] MEDS: POLYETHYLENE GLYCOL (HEALTHYLAX) 3350 17 GM PACKET PO SCH (09:34)
[2022-01-31 09:40] VITALS: BP 118/60; PULSE 69; TEMP 98
== END 2022-01-31 11:23 | DRG 313 ==
LOC: JER 16:42 → JERBED 18:56 → OBSVTOIN 23:13 → J4W 01-28 01:15
PROVIDERS: ADMIT Internal Medicine; ATTEND Internal Medicine
DX: R07.89 Other chest pain (principal); I25.10 Atherosclerotic heart disease of native coronary artery without angina pectoris; E78.00 Pure hypercholesterolemia, unspecified; R00.2 Palpitations; D50.9 Iron deficiency anemia, unspecified; I11.0 Hypertensive heart disease with heart failure; I50.9 Heart failure, unspecified; K57.90 Diverticulosis of intestine, part unspecified, without perforation or abscess without bleeding; K44.9 Diaphragmatic hernia without obstruction or gangrene; K21.9 Gastro-esophageal reflux disease without esophagitis; J44.9 Chronic obstructive pulmonary disease, unspecified; F41.9 Anxiety disorder, unspecified; I48.0 Paroxysmal atrial fibrillation; Z95.0 Presence of cardiac pacemaker; Z85.51 Personal history of malignant neoplasm of bladder; Z86.73 Personal history of transient ischemic attack (TIA), and cerebral infarction without residual deficits; Z86.718 Personal history of other venous thrombosis and embolism
CPT/HCPCS: 0241U-QW; 36415; 71045-TC-FY; 80053; 80061; 82803; 83880; 84484; 85025; 85610; 85730; 86850; 86900; 86901; 93005; 93010; 93306-TC; 97116-GP; 97161-GP; 99285-25; C9803-CS; G0378; J1644; U0003; U0005

== ENCOUNTER 2023-11-03 15:50 | Inpatient (IN) | payer OTHER, BC ==
[2023-11-03 18:23] LABS: INR 1.05 (0.83-1.09); PROTHROMBIN TIME (PATIENT) 11.8 SEC (9.7-13.0)
[2023-11-03 18:27] LABS: ACTIVATED PTT 31.2 SECONDS (25.2-36.5)
[2023-11-03 18:36] LABS: BASO % 0.5 % (0-2.0); EOS % 1.4 % (0-4.5); HEMATOCRIT 43.5 % (32.4-45.2); HEMOGLOBIN 14.3 GM/dL (10.7-15.3); LYMPH % 24.6 % (8-40); MCH 28.9 pg (25.7-33.7); MCHC 32.9 g/dl (32.0-36.0); MEAN CELL VOLUME 87.7 fl (80-96); MONO % 7.2 % (3.8-10.2); NEUT % 66.3 % (42.8-82.8); PLATELET COUNT 215 10^3/uL (134-434); RBC 4.96 M/mm3 (3.60-5.2); RDW 15.4 % (11.6-15.6); WHITE BLOOD COUNT 10.6 K/mm3 (4.0-10.0)
[2023-11-03 19:00] LABS: POTASSIUM 4.4 mmol/L (3.5-5.1)
[2023-11-03 19:02] LABS: CALCIUM 9.3 mg/dL (8.5-10.1)
[2023-11-03 19:03] LABS: ALBUMIN 3.3 g/dl (3.4-5.0); BLOOD UREA NITROGEN 13.8 mg/dL (7-18)
[2023-11-03 19:07] LABS: BILIRUBIN,TOTAL 0.5 mg/dL (0.2-1); TOT PROT 6.7 g/dl (6.4-8.2)
[2023-11-03] MEDS ORDERED: VANCOMYCIN 1 GRAM (PRE-DOCKED) 1,000 MG/250 ML BAG IVPB ONE (20:21)
[2023-11-03] MEDS: VANCOMYCIN 1,000 MG in DEXTROSE 5%-WATER - 250 ML IVPB ONE (20:37)
[2023-11-04] MEDS ORDERED: FUROSEMIDE 40 MG/4 ML INJECTABLE VIAL ONE (01:33)
[2023-11-04] MEDS: FUROSEMIDE 40 MG/4 ML INJECTABLE VIAL IVPUSH ONE (02:01)
[2023-11-04 04:07] VITALS: BMI 30.7
[2023-11-04] MEDS: PANTOPRAZOLE 40 MG TABLET PO SCH (09:28)
[2023-11-04] MEDS: POLYETHYLENE GLYCOL (HEALTHYLAX) 3350 17 GM PACKET PO SCH (09:28)
[2023-11-04] MEDS: LOSARTAN POTASSIUM 50 MG TABLET PO SCH (09:28)
[2023-11-04 16:07] LABS: MCH 28.4 pg (25.7-33.7); MCHC 31.8 g/dl (32.0-36.0); MEAN CELL VOLUME 89.4 fl (80-96); MEAN PLT VOLUME 8.8 fl (7.5-11.1); PLATELET COUNT 198 10^3/uL (134-434); RBC 4.92 M/mm3 (3.60-5.2); RDW 14.7 % (11.6-15.6); WHITE BLOOD COUNT 8.9 K/mm3 (4.0-10.0)
[2023-11-04 16:21] LABS: POTASSIUM 4.4 mmol/L (3.5-5.1)
[2023-11-04 16:23] LABS: MAGNESIUM 1.9 mg/dL (1.8-2.4)
[2023-11-04] MEDS ORDERED: VANCOMYCIN/WATER FOR INJ (PEG) 1,000 MG/200 ML BAG IVPB SCH (21:00)
[2023-11-04] MEDS: MELATONIN 5 MG TABLETS PO PRN (21:04)
[2023-11-05 08:16] LABS: BASO % 0.8 % (0-2.0); EOS % 1.9 % (0-4.5); HEMATOCRIT 42.3 % (32.4-45.2); HEMOGLOBIN 13.6 GM/dL (10.7-15.3); LYMPH % 32.4 % (8-40); MCH 28.5 pg (25.7-33.7); MCHC 32.2 g/dl (32.0-36.0); MEAN CELL VOLUME 88.8 fl (80-96); MEAN PLT VOLUME 8.6 fl (7.5-11.1); MONO % 7.8 % (3.8-10.2); NEUT % 57.1 % (42.8-82.8); PLATELET COUNT 182 10^3/uL (134-434); RBC 4.76 M/mm3 (3.60-5.2); RDW 15.1 % (11.6-15.6); WHITE BLOOD COUNT 8.5 K/mm3 (4.0-10.0)
[2023-11-05 08:22] LABS: POTASSIUM 4.5 mmol/L (3.5-5.1)
[2023-11-05 08:25] LABS: CALCIUM 9.1 mg/dL (8.5-10.1)
[2023-11-05 08:26] LABS: ALBUMIN 2.8 g/dl (3.4-5.0); BLOOD UREA NITROGEN 18.8 mg/dL (7-18)
[2023-11-05 08:29] LABS: CREATININE 1.1 mg/dL (0.55-1.3)
[2023-11-05 08:32] LABS: BILIRUBIN,TOTAL 0.6 mg/dL (0.2-1)
[2023-11-05] MEDS ORDERED: VANCOMYCIN/WATER FOR INJ (PEG) 1,000 MG/200 ML BAG IVPB SCH (21:00)
[2023-11-06 08:58] LABS: BASO % 0.6 % (0-2.0); EOS % 1.7 % (0-4.5); HEMATOCRIT 41.9 % (32.4-45.2); HEMOGLOBIN 13.2 GM/dL (10.7-15.3); LYMPH % 33.6 % (8-40); MCH 28.4 pg (25.7-33.7); MCHC 31.5 g/dl (32.0-36.0); MEAN CELL VOLUME 89.9 fl (80-96); MEAN PLT VOLUME 8.4 fl (7.5-11.1); MONO % 7.9 % (3.8-10.2); NEUT % 56.2 % (42.8-82.8); PLATELET COUNT 178 10^3/uL (134-434); RBC 4.66 M/mm3 (3.60-5.2); RDW 14.9 % (11.6-15.6); WHITE BLOOD COUNT 8.5 K/mm3 (4.0-10.0)
[2023-11-06 09:17] LABS: POTASSIUM 5.1 mmol/L (3.5-5.1)
[2023-11-06 09:26] LABS: ALBUMIN 2.6 g/dl (3.4-5.0); BLOOD UREA NITROGEN 16.7 mg/dL (7-18)
[2023-11-06 09:31] LABS: BILIRUBIN,TOTAL 0.4 mg/dL (0.2-1)
[2023-11-06 18:35] VITALS: RESP 18
[2023-11-08 06:39] VITALS: TEMP 97.7
[2023-11-08 11:11] VITALS: BP 127/48; PULSE 63
== END 2023-11-08 14:59 | DRG 602 ==
LOC: JER 15:50 → JERBED 20:08 → OBSVTOIN 20:37 → J5S 11-04 02:23
PROVIDERS: ADMIT Internal Medicine; ATTEND Internal Medicine
DX: L03.115 Cellulitis of right lower limb (principal); I50.33 Acute on chronic diastolic (congestive) heart failure; E87.1 Hypo-osmolality and hyponatremia; I11.0 Hypertensive heart disease with heart failure; I25.10 Atherosclerotic heart disease of native coronary artery without angina pectoris; J44.9 Chronic obstructive pulmonary disease, unspecified; I48.0 Paroxysmal atrial fibrillation; E78.5 Hyperlipidemia, unspecified; K21.9 Gastro-esophageal reflux disease without esophagitis; R09.02 Hypoxemia; K57.90 Diverticulosis of intestine, part unspecified, without perforation or abscess without bleeding; K22.2 Esophageal obstruction; Z95.0 Presence of cardiac pacemaker
CPT/HCPCS: 36415; 71045-TC-FY; 80048; 80053; 83735; 83880; 85025; 85027; 85610; 85651; 85730; 86140; 87040; 87635; 93005; 93010; 93306-TC; 93971-TC; 94761; 97116-GP; 97161-GP; 99285-25; G0378

== ENCOUNTER 2023-11-09 14:01 | Inpatient (IN) | payer OTHER, BC ==
[2023-11-09] MEDS: HYDROmorphone HCl 2 MG/ML VIAL IVPUSH ONE (15:32)
[2023-11-09 16:13] LABS: BASO % 1.1 % (0-2.0); EOS % 1.6 % (0-4.5); HEMATOCRIT 41.2 % (32.4-45.2); HEMOGLOBIN 13.4 GM/dL (10.7-15.3); LYMPH % 28.9 % (8-40); MCH 28.8 pg (25.7-33.7); MCHC 32.6 g/dl (32.0-36.0); MEAN CELL VOLUME 88.5 fl (80-96); MEAN PLT VOLUME 8.3 fl (7.5-11.1); MONO % 9.1 % (3.8-10.2); NEUT % 59.3 % (42.8-82.8); PLATELET COUNT 176 10^3/uL (134-434); RBC 4.66 M/mm3 (3.60-5.2); RDW 14.7 % (11.6-15.6); WHITE BLOOD COUNT 10.1 K/mm3 (4.0-10.0)
[2023-11-09 16:15] LABS: VENOUS BASE EXCESS 3.8 mmol/L (-2-2); VENOUS PCO2 68.6 mmHg (38-52); VENOUS PH 7.295 (7.310-7.410)
[2023-11-09 16:38] LABS: POTASSIUM 4.9 mmol/L (3.5-5.1)
[2023-11-09 16:40] LABS: ALBUMIN 2.8 g/dl (3.4-5.0); BLOOD UREA NITROGEN 17.7 mg/dL (7-18)
[2023-11-09 16:41] LABS: INR 1.12 (0.83-1.09); PROTHROMBIN TIME (PATIENT) 12.6 SEC (9.7-13.0)
[2023-11-09 16:43] LABS: CREATININE 1.1 mg/dL (0.55-1.3)
[2023-11-09 16:43] LABS: ACTIVATED PTT 33.4 SECONDS (25.2-36.5)
[2023-11-09 16:45] LABS: BILIRUBIN,TOTAL 0.7 mg/dL (0.2-1); TOT PROT 6.4 g/dl (6.4-8.2)
[2023-11-09 16:48] LABS: N-TERMINAL BNP 2043.8 pg/ml (5-450)
[2023-11-09] MEDS ORDERED: methylPREDNISolone NA SUCC 125 MG/2 ML VIAL ONE (17:30)
[2023-11-09] MEDS ORDERED: ALBUTEROL SO4 2.5/IPRATROPIUM 0.5 INH SOL 3 ML VIAL.NEB. NEB ONE ×2 (17:30→18:09)
[2023-11-09] MEDS ORDERED: FUROSEMIDE 40 MG/4 ML INJECTABLE VIAL ONE (17:35)
[2023-11-09] MEDS: ALBUTEROL SO4 2.5/IPRATROPIUM 0.5 INH SOL 3 ML VIAL.NEB. NEB SCH (17:50)
[2023-11-09] MEDS: FUROSEMIDE 40 MG/4 ML INJECTABLE VIAL IVPUSH ONE (17:55)
[2023-11-09] MEDS: methylPREDNISolone NA SUCC 125 MG/2 ML VIAL IVPB ONE (17:55)
[2023-11-10] MEDS ORDERED: ACETAMINOPHEN 325 MG TABLET (FP) PO PRN (00:07)
[2023-11-10] MEDS ORDERED: POLYETHYLENE GLYCOL (HEALTHYLAX) 3350 17 GM PACKET PO PRN (00:10)
[2023-11-10] MEDS ORDERED: MELATONIN 5 MG TABLETS ONE (00:48)
[2023-11-10] MEDS: MELATONIN 5 MG TABLETS PO PRN (00:50)
[2023-11-10 05:03] VITALS: BMI 30.2
[2023-11-10 08:05] LABS: POTASSIUM 4.9 mmol/L (3.5-5.1)
[2023-11-10 08:10] LABS: CALCIUM 9.1 mg/dL (8.5-10.1)
[2023-11-10 08:11] LABS: BLOOD UREA NITROGEN 20.9 mg/dL (7-18); MAGNESIUM 2.1 mg/dL (1.8-2.4)
[2023-11-10 08:14] LABS: CREATININE 1.3 mg/dL (0.55-1.3); PHOSPHOROUS 3.9 mg/dL (2.5-4.9)
[2023-11-10 08:25] LABS: HEMATOCRIT 43.2 % (32.4-45.2); HEMOGLOBIN 14.1 GM/dL (10.7-15.3); MCH 28.9 pg (25.7-33.7); MCHC 32.7 g/dl (32.0-36.0); MEAN CELL VOLUME 88.5 fl (80-96); PLATELET COUNT 177 10^3/uL (134-434); RBC 4.88 M/mm3 (3.60-5.2); RDW 14.7 % (11.6-15.6); WHITE BLOOD COUNT 6.5 K/mm3 (4.0-10.0)
[2023-11-10] MEDS: PANTOPRAZOLE 40 MG TABLET PO SCH (09:29)
[2023-11-10] MEDS: LOSARTAN POTASSIUM 50 MG TABLET PO SCH (09:29)
[2023-11-10] MEDS: FUROSEMIDE 40 MG TABLET (FP) PO SCH (09:29)
[2023-11-10] MEDS: ENOXAPARIN NA (PORCINE) 40 MG/0.4 ML DISP.SYRIN SQ SCH (09:29)
[2023-11-10] MEDS: NICOTINE 14 MG/24 HOURS TOPICAL PATCH TD SCH (09:29)
[2023-11-10] MEDS: ATORVASTATIN CA 10 MG TABLET (FP) PO SCH (23:59)
[2023-11-11 07:42] LABS: CALCIUM 9.5 mg/dL (8.5-10.1)
[2023-11-11 07:43] LABS: ALBUMIN 2.8 g/dl (3.4-5.0)
[2023-11-11 07:46] LABS: CREATININE 1.2 mg/dL (0.55-1.3)
[2023-11-11 07:47] LABS: BILIRUBIN,TOTAL 0.4 mg/dL (0.2-1); TOT PROT 6.3 g/dl (6.4-8.2)
[2023-11-11 08:04] LABS: POTASSIUM 5.1 mmol/L (3.5-5.1)
[2023-11-11 08:38] LABS: BASO % 0.2 % (0-2.0); EOS % 0.2 % (0-4.5); HEMATOCRIT 42.1 % (32.4-45.2); HEMOGLOBIN 13.4 GM/dL (10.7-15.3); MCH 28.3 pg (25.7-33.7); MCHC 31.7 g/dl (32.0-36.0); MEAN CELL VOLUME 89.2 fl (80-96); MEAN PLT VOLUME 8.9 fl (7.5-11.1); MONO % 6.1 % (3.8-10.2); NEUT % 75.5 % (42.8-82.8); PLATELET COUNT 161 10^3/uL (134-434); RBC 4.72 M/mm3 (3.60-5.2); RDW 14.5 % (11.6-15.6); WHITE BLOOD COUNT 14.5 K/mm3 (4.0-10.0)
[2023-11-11] MEDS: PANTOPRAZOLE 40 MG TABLET PO SCH (10:11)
[2023-11-11] MEDS: LOSARTAN POTASSIUM 50 MG TABLET PO SCH (10:11)
[2023-11-11 19:07] VITALS: RESP 20
[2023-11-12] MEDS ORDERED: ATORVASTATIN CA 20 MG TABLET (FP) PO SCH (10:54)
[2023-11-12 18:50] VITALS: BP 101/42; PULSE 55; TEMP 98.2
== END 2023-11-12 21:26 | DRG 291 ==
LOC: JER 14:01 → JERBED 17:31 → J4W 11-10 03:08 → OBSVTOIN 11-10 15:24 → J4W 11-11 15:09
PROVIDERS: ADMIT Internal Medicine; ATTEND Internal Medicine
DX: I11.0 Hypertensive heart disease with heart failure (principal); I50.33 Acute on chronic diastolic (congestive) heart failure; E87.1 Hypo-osmolality and hyponatremia; J44.9 Chronic obstructive pulmonary disease, unspecified; E78.5 Hyperlipidemia, unspecified; I48.0 Paroxysmal atrial fibrillation; K57.90 Diverticulosis of intestine, part unspecified, without perforation or abscess without bleeding; D50.9 Iron deficiency anemia, unspecified; G62.9 Polyneuropathy, unspecified; I25.10 Atherosclerotic heart disease of native coronary artery without angina pectoris; K59.00 Constipation, unspecified; K21.9 Gastro-esophageal reflux disease without esophagitis; M06.9 Rheumatoid arthritis, unspecified; Z95.0 Presence of cardiac pacemaker; Z86.718 Personal history of other venous thrombosis and embolism; Z99.3 Dependence on wheelchair
CPT/HCPCS: 0241U-QW; 36415; 71045-TC-FY; 80048; 80053; 80061; 82803; 82962; 83036; 83735; 83880; 84100; 84443; 84484; 85025; 85027; 85610; 85730; 93005; 93010; 97116-GP; 97162-GP; 99285-25; G0378

== ENCOUNTER 2025-01-22 20:47 | Inpatient (IN) | payer OTHER, BC ==
[2025-01-22 23:49] LABS: GLUCOSE,RANDOM 110 mg/dL (74-106); TOT PROT 8.3 g/dl (6.4-8.2)
[2025-01-22 23:50] LABS: CO2 27 mmol/L (21-32)
[2025-01-22 23:52] LABS: ALK PHOS 97 U/L (40-150)
[2025-01-22 23:55] LABS: CREATININE 1.14 mg/dL (0.55-1.3); SGOT/AST 56 U/L (5-34); SGPT/ALT 11 U/L (0-55)
[2025-01-23 01:11] LABS: ABSOLUTE IMMATURE GRANULOCYTES 0.03 x10^3/uL (0.0-0.031); MCHC 31.3 g/dl (32.2-35.5); MONOCYTE % 6.7 % (4.7-12.5); RDW 15.0 % (12.5-17.0)
[2025-01-23 01:13] LABS: BASOPHILS # 0.06 x10^3/uL (0.01-0.08); EOSINOPHIL % 1.6 % (0.7-5.8); EOSINOPHILS # 0.18 x10^3/uL (0.04-0.36); IMMATURE PLATELET FRACTION # 9.80 x10^3/uL; MEAN CELL VOLUME 89.9 fl (79.4-94.8); MEAN PLT VOLUME 10.5 fl (9.4-12.3); MONOCYTE # 0.74 x10^3/uL (0.24-0.86)
[2025-01-23 01:54] LABS: GLUCOSE,RANDOM 112.0 mg/dL (74-106)
[2025-01-23 01:56] LABS: CO2 29.0 mmol/L (21-32)
[2025-01-23 02:17] LABS: CREATININE 1.3 mg/dL (0.55-1.3)
[2025-01-23] MEDS ORDERED: MORPHINE SULFATE 2 MG/ML SYRINGE ONE (02:51)
[2025-01-23] MEDS: morphine CARPU-JECT 2 MG/1 ML DISP.SYRIN IVPUSH ONE (03:15)
[2025-01-23] MEDS ORDERED: ALBUTEROL SO4 2.5/IPRATROPIUM 0.5 INH SOL 3 ML VIAL.NEB. NEB PRN (07:26)
[2025-01-23] MEDS: KETOROLAC TROMETHAMINE 15 MG/ML VIAL IVPUSH SCH (08:14)
[2025-01-23] MEDS: PANTOPRAZOLE 20 MG TABLET PO SCH (09:44)
[2025-01-23] MEDS: ACETAMINOPHEN 1000 MG/100 ML BAG IVPB PRN (12:51)
[2025-01-24 08:23] LABS: ABSOLUTE IMMATURE GRANULOCYTES 0.05 x10^3/uL (0.0-0.031); BASOPHILS # 0.08 x10^3/uL (0.01-0.08); EOSINOPHIL % 5.6 % (0.7-5.8); EOSINOPHILS # 0.52 x10^3/uL (0.04-0.36); MCHC 30.2 g/dl (32.2-35.5); MEAN CELL VOLUME 92.3 fl (79.4-94.8); MEAN PLT VOLUME 10.0 fl (9.4-12.3); MONOCYTE # 0.74 x10^3/uL (0.24-0.86); MONOCYTE % 7.9 % (4.7-12.5); RDW 14.8 % (12.5-17.0)
[2025-01-24 08:43] LABS: GLUCOSE,RANDOM 79.0 mg/dL (74-106)
[2025-01-24 08:44] LABS: CO2 28.0 mmol/L (21-32)
[2025-01-24 08:48] LABS: CREATININE 1.23 mg/dL (0.55-1.3)
[2025-01-24] MEDS ORDERED: POLYETHYLENE GLYCOL (HEALTHYLAX) 3350 17 GM PACKET PO PRN (11:31)
[2025-01-24] MEDS: ATORVASTATIN CA 10 MG TABLET (FP) PO SCH (21:04)
[2025-01-25 08:28] LABS: GLUCOSE,RANDOM 92.0 mg/dL (74-106)
[2025-01-25 08:29] LABS: TOT PROT 6.3 g/dl (6.4-8.2)
[2025-01-25 08:30] LABS: CO2 28.0 mmol/L (21-32)
[2025-01-25 08:31] LABS: ALK PHOS 104.0 U/L (40-150)
[2025-01-25 08:34] LABS: CREATININE 1.18 mg/dL (0.55-1.3); SGOT/AST 19.0 U/L (5-34); SGPT/ALT 9.0 U/L (0-55)
[2025-01-25 13:40] VITALS: BMI 31.1
[2025-01-25] MEDS: FUROSEMIDE 20 MG TABLET (FP) PO SCH (15:52)
[2025-01-25 16:14] VITALS: RESP 18
[2025-01-26 15:31] VITALS: BP 132/38; PULSE 51; TEMP 98.2
== END 2025-01-26 20:04 | disposition home health service (06) | DRG 552 ==
LOC: JER 20:47 → JERBED 01-23 02:42 → J5S 01-23 06:11 → OBSVTOIN 01-23 11:43
PROVIDERS: ADMIT Internal Medicine; ATTEND Internal Medicine
DX: M48.061 Spinal stenosis, lumbar region without neurogenic claudication (principal); I50.32 Chronic diastolic (congestive) heart failure; J44.9 Chronic obstructive pulmonary disease, unspecified; Z99.81 Dependence on supplemental oxygen; I50.9 Heart failure, unspecified; I25.10 Atherosclerotic heart disease of native coronary artery without angina pectoris; I11.0 Hypertensive heart disease with heart failure; E78.5 Hyperlipidemia, unspecified; K21.9 Gastro-esophageal reflux disease without esophagitis; K59.09 Other constipation; D64.9 Anemia, unspecified; M54.16 Radiculopathy, lumbar region; M25.551 Pain in right hip
CPT/HCPCS: 36415; 72131-TC; 72170-TC-FY; 72192-TC; 73502-TC-RT-FY; 73700-TC-RT; 80048; 80053; 83735; 84100; 85025; 97116-GP; 97161-GP; 99285-25; G0378